=== PATIENT | female | born 1930 | race Caucasian/White ===

== ENCOUNTER 2016-12-18 05:47 | Day surgery (SDC) | payer MEDICARE, OTHER, MEDICAID ==
[~2016-12-18] VITALS: Ht 152.4 cm; Wt 66.1 kg
[~2016-12-18 05:47] MED LIST: ACET-2321 PO; ASPI-557 PO; FURO-33 PO; LOSA100T44 PO; METO100T5 PO; METO50TA5 PO; MIRT15TA6 PO; MV-M1TAB38 PO; OMEP20TA2 PO; POLY15DR57 BOTH EYES; POLY17PO6 PO; POTA10CA32 PO; SIMV20TA89 PO; SUCR1ORA3 PO; TRAM50TA53 PO; TRAZ-58 PO
--- OUTSIDE RECORDS SUMMARY | 2016-12-18 05:51 | XMS REPORT | Referral Summary ---
Author Author [facility], Family Medicine Organization [facility] Address Unknown Phone Unavailable Care Team Providers Care Care Manager Cna Name Role Phone Daniel Hough Primary Care Physician [phone] Encounter VC Date(s): 01/29/15 - 01/29/15 [facility], Family [address] [place] [address] Discharge Diagnosis: Chronic pain of right knee Discharge Disposition: 01-Home or Self Care Attending Physician: Saul Hough MD Admitting Physician: Saul Hough MD Vital Signs Most recent to 1 oldest [Reference Range]: Blood Pressure 130/76 mmHg [90-140/60-90 mmHg] (01/29/15 8:57 AM) Problem List Condition Effective Dates Status Health Status Informant Acute GI Active bleeding(Confirmed) Anxiety(Confirmed) Resolved CAD(Confirmed) Resolved CKD (chronic kidney Active disease), stage III(Confirmed)1 GERD Active (gastroesophageal reflux disease)(Confirmed) Herpes 2011 Resolved zoster(Confirmed) Hypercholesterolemia Active (Confirmed) Hyperlipidemia(Confi Resolved rmed) Hypertension(Confirm Resolved ed) Hypothyroidism(Confi Resolved rmed) Kidney Resolved stones(Confirmed) Knee pain(Confirmed) 2007 Resolved Malignant Resolved lymphoma(Confirmed)2 Measles, mumps as Resolved child(Confirmed) DJD (degenerative Active joint disease)(Confirmed) Peptic ulcer Active disease(Confirmed) Chronic Active insomnia(Confirmed) Shingles January 2012 Resolved 2011(Confirmed) 1managed by Dr. Reddy 2POWERPORT catheter Allergies, Adverse Reactions, Alerts Substance Reaction Severity Status acetaminophen-HYDROcodone Nausea/Vomiting Mild Active codeine Nausea/Vomiting Mild Active HYDROcodone Active meperidine Adverse Reaction Mild Active sulfamethoxazole Adverse Reaction Mild Active sulfanilamide topical Active Medications acetaminophen 500 mg, Oral, BID, 0 Refill(s) Start Date: 02/15/14 Status: Ordered aspirin 81 mg, Oral, Daily, 0 Refill(s) Start Date: 12/25/14 Status: Ordered Carafate 1 g oral tablet See Instructions, TAKE ONE TABLET BY MOUTH FOUR TIMES A DAY, # 120 tabs, eRx: [facility] #[id number], TAKE ONE TABLET BY MOUTH FOUR TIMES A DAY Start Date: 05/29/15 Status: Ordered furosemide 80 mg oral tablet 0.5 tabs, Oral, BID, 0 Refill(s) Start Date: 02/15/14 Status: Ordered losartan 100 mg oral tablet See Instructions, TAKE ONE TABLET BY MOUTH DAILY, # 30 tabs, 2 Refill(s), eRx: [facility] #[id number], TAKE ONE TABLET BY MOUTH DAILY Start Date: 01/09/15 Status: Ordered Metoprolol Tartrate 50 mg oral tablet See Instructions, TAKE TWO TABLETS BY MOUTH EVERY MORNING, # 180 tabs, 2 Refill( s), eRx: [facility] #[id number], TAKE TWO TABLETS BY MOUTH EVERY MORNING Start Date: 10/31/14 Status: Ordered mirtazapine 15 mg oral tablet See Instructions, TAKE ONE TABLET BY MOUTH AT BEDTIME, # 30 tabs, 1 Refill(s), eRx: [facility] #[id number], TAKE ONE TABLET BY MOUTH AT BEDTIME Start Date: 06/19/15 Status: Ordered Ocuvite tabs, Oral, Daily, 0 Refill(s) Start Date: 12/25/14 Status: Ordered omeprazole 20 mg, Oral, Daily, 0 Refill(s) Start Date: 03/11/15 Status: Ordered potassium chloride 10 mEq oral capsule, extended release See Instructions, TAKE ONE CAPSULE BY MOUTH THREE TIMES A DAY, # 120 unknown unit, 2 Refill(s), eRx: [facility] #[id number], TAKE ONE CAPSULE BY MOUTH THREE TIMES A DAY Start Date: 04/24/15 Status: Ordered traZODone 100 mg oral tablet See Instructions, TAKE ONE TABLET BY MOUTH AT BEDTIME, # 30 tabs, 2 Refill(s), eRx: [facility] #[id number], TAKE ONE TABLET BY MOUTH AT BEDTIME Start Date: 04/17/15 Status: Ordered Zocor 20 mg oral tablet See Instructions, TAKE ONE TABLET BY MOUTH AT BEDTIME, # 30 tabs, 2 Refill(s), eRx: [facility] #[id number], TAKE ONE TABLET BY MOUTH AT BEDTIME Start Date: 04/10/15 Status: Ordered Results No data available for this section Immunizations Vaccine Date Refusal Reason influenza virus vaccine, live 05/17/13 influenza virus vaccine, live 06/07/12 pneumococcal 23-polyvalent vaccine 08/03/05 Procedures Procedure Date Related Diagnosis Body Site POWERPORT cath 2012 S/P cardiac catheterization with ballooning 05/02/12 Colonoscopy1 2010 S/P arthroscopy of right knee with partial 06/20/08 lateral and medial meniscectomy2 S/p CABG (coronary artery bypass graft) 2000 H/O toe surgery 1984 herniated disc repair 1974 Hysterectomy 1973 Appendectomy 1947 Tonsillectomy 1Normal -repeat in 10yrs 2chondroplasty, excision plica Social History Social History Type Response Smoking Status Never smoker; Type: Cigarettes Assessment and Plan Extracted from: Title: Ambulatory Patient Education Author: Saul Hough MD Date: Family Medicine Arthralgia Your caregiver has diagnosed you as suffering from an arthralgia. Arthralgia means there is pain in a joint. This can come from many reasons including: Bruising the joint which causes soreness (inflammation ) in the joint. Wear and tear on the joints which occur as we grow older (osteoarthritis ) . Overusing the joint. Various forms of arthritis. Infections of the joint. Regardless of the cause of pain in your joint, most of these different pains respond to anti-inflammatory drugs and rest. The exception to this is when a joint is infected, and these cases are treated with antibiotics, if it is a bacterial infection. HOME CARE INSTRUCTIONS Rest the injured area for as long as directed by your caregiver. Then slowly start using the joint as directed by your caregiver and as the pain allows. Crutches as directed may be useful if the ankles, knees or hips are involved. If the knee was splinted or casted, continue use and care as directed. If an stretchy or elastic wrapping bandage has been applied today, it should be removed and re-applied every 3 to 4 hours. It should not be applied tightly, but firmly enough to keep swelling down. Watch toes and feet for swelling, bluish discoloration, coldness, numbness or excessive pain. If any of these problems (symptoms ) occur, remove the remberto bandage and re-apply more loosely. If these symptoms persist, contact your caregiver or return to this location. For the first 24 hours, keep the injured extremity elevated on pillows while lying down. Apply ice for 15-20 minutes to the sore joint every couple hours while awake for the first half day. Then 03-04 times per day for the first 48 hours. Put the ice in a plastic bag and place a towel between the bag of ice and your skin. Wear any splinting, casting, elastic bandage applications, or slings as instructed. Only take [id number]-mdnwftt or prescription medicines for pain, discomfort, or fever as directed by your caregiver. Do not use aspirin immediately after the injury unless instructed by your physician. Aspirin can cause increased bleeding and bruising of the tissues. If you were given crutches, continue to use them as instructed and do not resume weight bearing on the sore joint until instructed. Persistent pain and inability to use the sore joint as directed for more than 2 to 3 days are warning signs indicating that you should see a caregiver for a follow-up visit as soon as possible. Initially, a hairline fracture (break in bone) may not be evident on X-rays. Persistent pain and swelling indicate that further evaluation, non-weight bearing or use of the joint (use of crutches or slings as instructed), or further X-rays are indicated. X-rays may sometimes not show a small fracture until a week or 10 days later. Make a follow-up appointment with your own caregiver or one to whom we have referred you. A radiologist (specialist in reading X-rays) may read your X-rays. Make sure you know how you are to obtain your X-ray results. Do not assume everything is normal if you do not hear from us. SEEK MEDICAL CARE IF: Bruising, swelling, or pain increases. SEEK IMMEDIATE MEDICAL CARE IF: Your fingers or toes are numb or blue. The pain is not responding to medications and continues to stay the same or get worse. The pain in your joint becomes severe. You develop a fever over 102 F (38.9 C). It becomes impossible to move or use the joint. MAKE SURE YOU: Understand these instructions. Will watch your condition. Will get help right away if you are not doing well or get worse. Document Released: 08/02/2006 Document Revised: 10/24/2012 Document Reviewed: ExitCare Patient Information 2014 [employer] [facility]. No follow up information was provided. Extracted from: Title: Office Visit Note Author: Saul Hough MD Date: 01/29/15 Assessment/Plan Anxiety Ordered: Office Visit Level 4 Est 71952 CAD Ordered: Office Visit Level 4 Est 47559 Chronic insomnia Will increase the trazodone to 75mg at bedtime and continue with the rest of the medications. Ordered: Office Visit Level 4 Est 58258 Chronic pain of right knee X-ray of the knee. Ordered: Office Visit Level 4 Est 97738 XR Knee 3 Views Right CKD (chronic kidney disease), stage III Ordered: Office Visit Level 4 Est 87385
--- OUTSIDE RECORDS SUMMARY | 2016-12-18 05:51 | XMS REPORT | Referral Summary ---
Author Author [facility], Family Medicine Organization [facility] Address Unknown Phone Unavailable Care Team Providers Care Clinical Staff Rn Name Role Phone Daniel Hough Primary Care Physician [phone] Encounter VC Date(s): 01/29/15 - 01/29/15 [facility], Family [address] [place] [address] Discharge Diagnosis: Chronic pain of right knee [...] TIMES A DAY, # 120 tabs, eRx: [facility] #[id number], TAKE ONE TABLET BY MOUTH FOUR TIMES A DAY Start Date: 05/29/15 Status: Ordered furosemide 80 mg oral tablet 0.5 tabs, Oral, BID, 0 Refill(s) Start Date: 02/15/14 Status: Ordered losartan 100 mg oral tablet See Instructions, TAKE ONE TABLET BY MOUTH DAILY, # 30 tabs, 2 Refill(s), eRx: [facility] #[id number], TAKE ONE TABLET BY MOUTH DAILY Start Date: 01/09/15 Status: Ordered Metoprolol Tartrate 50 mg oral tablet See Instructions, TAKE TWO TABLETS BY MOUTH EVERY MORNING, # 180 tabs, 2 Refill( s), eRx: [facility] #[id number], TAKE TWO TABLETS BY MOUTH EVERY MORNING Start Date: 10/31/14 Status: Ordered mirtazapine 15 mg oral tablet See Instructions, TAKE ONE TABLET BY MOUTH AT BEDTIME, # 30 tabs, 1 Refill(s), eRx: [facility] #[id number], TAKE ONE TABLET BY MOUTH AT BEDTIME Start Date: 06/19/15 Status: Ordered Ocuvite tabs, Oral, Daily, 0 Refill(s) Start Date: 12/25/14 Status: Ordered omeprazole 20 mg, Oral, Daily, 0 Refill(s) Start Date: 03/11/15 Status: Ordered potassium chloride 10 mEq oral capsule, extended release See Instructions, TAKE ONE CAPSULE BY MOUTH THREE TIMES A DAY, # 120 unknown unit, 2 Refill(s), eRx: [facility] #[id number], TAKE ONE CAPSULE BY MOUTH THREE TIMES A DAY Start Date: 04/24/15 Status: Ordered traZODone 100 mg oral tablet See Instructions, TAKE ONE TABLET BY MOUTH AT BEDTIME, # 30 tabs, 2 Refill(s), eRx: [facility] #[id number], TAKE ONE TABLET BY MOUTH AT BEDTIME Start Date: 04/17/15 Status: Ordered Zocor 20 mg oral tablet See Instructions, TAKE ONE TABLET BY MOUTH AT BEDTIME, # 30 tabs, 2 Refill(s), eRx: [facility] #[id number], TAKE ONE TABLET BY MOUTH AT BEDTIME [...] applications, or slings as instructed. Only take zvbi-tfh-jewnenm or prescription medicines for pain, discomfort, or [...] 10/24/2012 Document Reviewed: ExitCare Patient Information 2014 [employer] [facility]. No follow up information was provided. Extracted from: Title: Office Visit Note Author: Saul Hough MD Date: 01/29/15 Assessment/Plan Anxiety Ordered: Office Visit Level 4 Est 29950 CAD Ordered: Office Visit Level 4 Est 54121 Chronic insomnia Will increase the trazodone to 75mg at bedtime and continue with the rest of the medications. Ordered: Office Visit Level 4 Est 42553 Chronic pain of right knee X-ray of the knee. Ordered: Office Visit Level 4 Est 72233 XR Knee 3 Views Right CKD (chronic kidney disease), stage III Ordered: Office Visit Level 4 Est 66004
--- OUTSIDE RECORDS SUMMARY | 2016-12-18 05:51 | XMS REPORT | Referral Summary ---
Author Author [facility], Family Medicine Organization [facility] Address Unknown Phone Unavailable Care Team Providers Care Debone Processing Supervisor Name Role Phone Daniel Hough Primary Care Physician [phone] Encounter VC Date(s): 07/08/15 - 07/08/15 [facility], Family [address] [place] [address] Discharge Disposition: 01-Home or Self Care Attending Physician: Saul Hough MD Admitting Physician: Saul Hough MD Vital Signs Most recent to 1 oldest [Reference Range]: Blood Pressure 124/66 mmHg [90-140/60-90 mmHg] (07/08/15 1:30 PM) Problem List Condition Effective Dates Status Health [...] TIMES A DAY, # 120 tabs, eRx: [facility] #[id number], TAKE ONE TABLET BY MOUTH FOUR TIMES A DAY Start Date: 06/26/15 Status: Ordered furosemide 80 mg oral tablet 0.5 tabs, Oral, BID, 0 Refill(s) Start Date: 02/15/14 Status: Ordered losartan 100 mg oral tablet See Instructions, TAKE ONE TABLET BY MOUTH DAILY, # 30 tabs, 2 Refill(s), eRx: [facility] #[id number], TAKE ONE TABLET BY MOUTH DAILY Start Date: 01/09/15 Status: Ordered Metoprolol Tartrate 50 mg oral tablet See Instructions, TAKE TWO TABLETS BY MOUTH EVERY MORNING, # 180 tabs, 2 Refill( s), eRx: [facility] #[id number], TAKE TWO TABLETS BY MOUTH EVERY MORNING Start Date: 10/31/14 Status: Ordered mirtazapine 15 mg oral tablet See Instructions, TAKE ONE TABLET BY MOUTH AT BEDTIME, # 30 tabs, 1 Refill(s), eRx: [facility] #[id number], TAKE ONE TABLET BY MOUTH AT BEDTIME Start Date: 06/19/15 Status: Ordered Ocuvite tabs, Oral, Daily, 0 Refill(s) Start Date: 12/25/14 Status: Ordered omeprazole 20 mg, Oral, Daily, 0 Refill(s) Start Date: 03/11/15 Status: Ordered potassium chloride 10 mEq oral capsule, extended release See Instructions, TAKE ONE CAPSULE BY MOUTH THREE TIMES A DAY, # 120 unknown unit, 2 Refill(s), eRx: [facility] #[id number], TAKE ONE CAPSULE BY MOUTH THREE TIMES A DAY Start Date: 04/24/15 Status: Ordered traZODone 100 mg oral tablet See Instructions, TAKE ONE TABLET BY MOUTH AT BEDTIME, # 30 tabs, 2 Refill(s), eRx: [facility] #[id number], TAKE ONE TABLET BY MOUTH AT BEDTIME Start Date: 04/17/15 Status: Ordered Zocor 20 mg oral tablet See Instructions, TAKE ONE TABLET BY MOUTH AT BEDTIME, # 30 tabs, 2 Refill(s), eRx: [facility] #[id number], TAKE ONE TABLET BY MOUTH AT BEDTIME [...] surgery 1984 herniated disc repair 1974 Hysterectomy 1974 Appendectomy 1948 Tonsillectomy 1Normal -repeat in 10yrs 2chondroplasty, excision plica Social History Social History Type Response Smoking Status Never smoker; Type: Cigarettes Assessment and Plan Extracted from: Title: Ambulatory Patient Education Author: Saul Hough MD Date: Family Medicine Joint Injection Care After Refer to this sheet in the next few days. These instructions provide you with information on caring for yourself after you have had a joint injection. Your caregiver also may give you more specific instructions. Your treatment has been planned according to current medical practices, but problems sometimes occur. Call your caregiver if you have any problems or questions after your procedure. After any type of joint injection, it is not uncommon to experience: Soreness, swelling, or bruising around the injection site. Mild numbness, tingling, or weakness around the injection site caused by the numbing medicine used before or with the injection. It also is possible to experience the following effects associated with the specific agent after injection: Iodine-based contrast agents: Allergic reaction (itching, hives, widespread redness, and swelling beyond the injection site). Corticosteroids (These effects are rare.): Allergic reaction. Increased blood sugar levels (If you have diabetes and you notice that your blood sugar levels have increased, notify your caregiver). Increased blood pressure levels. Mood swings. Hyaluronic acid in the use of viscosupplementation. Temporary heat or redness. Temporary rash and itching. Increased fluid accumulation in the injected joint. These effects all should resolve within a day after your procedure. HOME CARE INSTRUCTIONS Limit yourself to light activity the day of your procedure. Avoid lifting heavy objects, bending, stooping, or twisting. Take prescription or agpc-uzp-rvtefii pain medication as directed by your caregiver. You may apply ice to your injection site to reduce pain and swelling the day of your procedure. Ice may be applied 03-04 times: Put ice in a plastic bag. Place a towel between your skin and the bag. Leave the ice on for no longer than 15-20 minutes each time. SEEK IMMEDIATE MEDICAL CARE IF: Pain and swelling get worse rather than better or extend beyond the injection site. Numbness does not go away. Blood or fluid continues to leak from the injection site. You have chest pain. You have swelling of your face or tongue. You have trouble breathing or you become dizzy. You develop a fever, chills, or severe tenderness at the injection site that last longer than 1 day. MAKE SURE YOU: Understand these instructions. Watch your condition. Get help right away if you are not doing well or if you get worse. Document Released: 04/14/2012 Document Revised: 10/24/2012 Document Reviewed: [facility] Patient Information 2015 [employer]. This information is not intended to replace advice given to you by your health care provider. Make sure you discuss any questions you have with your health care provider. Heat Therapy Heat therapy can help ease sore, stiff, injured, and tight muscles and joints. Heat relaxes your muscles, which may help ease your pain. RISKS AND COMPLICATIONS If you have any of the following conditions, do not use heat therapy unless your health care provider has approved: Poor circulation. Healing wounds or scarred skin in the area being treated. Diabetes, heart disease, or high blood pressure. Not being able to feel (numbness) the area being treated. Unusual swelling of the area being treated. Active infections. Blood clots. Cancer. Inability to communicate pain. This may include young children and people who have problems with their brain function (dementia). . Heat therapy should only be used on old, pre-existing, or long-lasting (chronic ) injuries. Do not use heat therapy on new injuries unless directed by your health care provider. HOW TO USE HEAT THERAPY There are several different kinds of heat therapy, including: Moist heat pack. Warm water bath. Hot water bottle. Electric heating pad. Heated gel pack. Heated wrap. Electric heating pad. Use the heat therapy method suggested by your health care provider. Follow your health care provider's instructions on when and how to use heat therapy. GENERAL HEAT THERAPY RECOMMENDATIONS Do not sleep while using heat therapy. Only use heat therapy while you are awake. Your skin may turn pink while using heat therapy. Do not use heat therapy if your skin turns red. Do not use heat therapy if you have new pain. High heat or long exposure to heat can cause najera. Be careful when using heat therapy to avoid burning your skin. Do not use heat therapy on areas of your skin that are already irritated, such as with a rash or sunburn. SEEK MEDICAL CARE IF: You have blisters, redness, swelling, or numbness. You have new pain. Your pain is worse. MAKE SURE YOU: Understand these instructions. Will watch your condition. Will get help right away if you are not doing well or get worse. Document Released: 10/24/2012 Document Revised: 12/17/2014 Document Reviewed: [facility] Patient Information 2015 [facility]. This information is not intended to replace advice given to you by your health care provider. Make sure you discuss any questions you have with your health care provider. No follow up information was provided. Extracted from: Title: Office Visit Note Author: Saul Hough MD Date: 07/08/15 Assessment/Plan DJD (degenerative joint disease) I find the patient stable for surgery for knee replacement. Ordered: Office Visit Level 4 Est 97232 Hypercholesterolemia Ordered: Office Visit Level 4 Est 34682 Hypertension Ordered: Office Visit Level 4 Est 76152 Hypothyroidism Ordered: Office Visit Level 4 Est 28907 Malignant lymphoma Peptic ulcer disease
--- OUTSIDE RECORDS SUMMARY | 2016-12-18 05:51 | XMS REPORT | Referral Summary ---
Author Author [facility], Family Medicine Organization [facility] Address Unknown Phone Unavailable Care Team Providers Care Blending Coordinator Name Role Phone Daniel Hough Primary Care Physician [phone] Encounter VC Date(s): 01/29/15 - 01/29/15 [facility], Family [address] [place] [address] Discharge Diagnosis: Chronic pain of right [...] TIMES A DAY, # 120 tabs, eRx: [facility] #[id number], TAKE ONE TABLET BY MOUTH FOUR TIMES A DAY Start Date: 05/29/15 Status: Ordered furosemide 80 mg oral tablet 0.5 tabs, Oral, BID, 0 Refill(s) Start Date: 02/15/14 Status: Ordered losartan 100 mg oral tablet See Instructions, TAKE ONE TABLET BY MOUTH DAILY, # 30 tabs, 2 Refill(s), eRx: [facility] #[id number], TAKE ONE TABLET BY MOUTH DAILY Start Date: 01/09/15 Status: Ordered Metoprolol Tartrate 50 mg oral tablet See Instructions, TAKE TWO TABLETS BY MOUTH EVERY MORNING, # 180 tabs, 2 Refill( s), eRx: [facility] #[id number], TAKE TWO TABLETS BY MOUTH EVERY MORNING Start Date: 10/31/14 Status: Ordered mirtazapine 15 mg oral tablet See Instructions, TAKE ONE TABLET BY MOUTH AT BEDTIME, # 30 tabs, 1 Refill(s), eRx: [facility] #[id number], TAKE ONE TABLET BY MOUTH AT BEDTIME Start Date: 06/19/15 Status: Ordered Ocuvite tabs, Oral, Daily, 0 Refill(s) Start Date: 12/25/14 Status: Ordered omeprazole 20 mg, Oral, Daily, 0 Refill(s) Start Date: 03/11/15 Status: Ordered potassium chloride 10 mEq oral capsule, extended release See Instructions, TAKE ONE CAPSULE BY MOUTH THREE TIMES A DAY, # 120 unknown unit, 2 Refill(s), eRx: [facility] #[id number], TAKE ONE CAPSULE BY MOUTH THREE TIMES A DAY Start Date: 04/24/15 Status: Ordered traZODone 100 mg oral tablet See Instructions, TAKE ONE TABLET BY MOUTH AT BEDTIME, # 30 tabs, 2 Refill(s), eRx: [facility] #[id number], TAKE ONE TABLET BY MOUTH AT BEDTIME Start Date: 04/17/15 Status: Ordered Zocor 20 mg oral tablet See Instructions, TAKE ONE TABLET BY MOUTH AT BEDTIME, # 30 tabs, 2 Refill(s), eRx: [facility] #[id number], TAKE ONE TABLET BY MOUTH AT BEDTIME [...] Extracted from: Title: Ambulatory Patient Education Author: Sual Hough MD Date: Family Medicine Arthralgia Your [...] applications, or slings as instructed. Only take [id number] or prescription medicines for pain, discomfort, or [...] 10/24/2012 Document Reviewed: [employer] Patient Information 2014 [employer] [facility]. No follow up information was provided. Extracted from: Title: Office Visit Note Author: Saul Hough MD Date: 01/29/15 Assessment/Plan Anxiety Ordered: Office Visit Level 4 Est 63832 CAD Ordered: Office Visit Level 4 Est 61251 Chronic insomnia Will increase the trazodone to 75mg at bedtime and continue with the rest of the medications. Ordered: Office Visit Level 4 Est 55960 Chronic pain of right knee X-ray of the knee. Ordered: Office Visit Level 4 Est 06233 XR Knee 3 Views Right CKD (chronic kidney disease), stage III Ordered: Office Visit Level 4 Est 02763
--- OUTSIDE RECORDS SUMMARY | 2016-12-18 05:51 | XMS REPORT | Referral Summary ---
Author Organization Unknown Address Unknown Phone Unavailable Care Team Providers Care Cable Engineer Outside Plant Name Role Phone Daniel Hough Primary Care Physician [phone] Encounter VC Date(s): 08/29/14 - 08/29/14 [facility], [place], [address] [place] [address] Discharge Diagnosis: History of hematemesis Discharge Diagnosis: History of melena Discharge Diagnosis: Melena Discharge Disposition: Home or Self Care Attending Physician: John Roberts MD Admitting Physician: John Roberts MD Vital Signs Most recent to 1 oldest [Reference Range]: Temperature Tympanic 36 degC [36.6-38.1 degC] *LOW* (08/29/14 9:32 AM) Blood Pressure 138/74 mmHg [90-140/60-90 mmHg] (08/29/14 9:32 AM) Problem List Condition Effective Dates Status Health Status Informant Acute GI Active bleeding(Confirmed) Anxiety(Confirmed) Resolved CAD(Confirmed) Resolved CKD (chronic kidney Active disease), stage III(Confirmed)1 Herpes 2011 Resolved zoster(Confirmed) Hypercholesterolemia Active (Confirmed) Hyperlipidemia(Confi Resolved rmed) Hypertension(Confirm Resolved ed) Hypothyroidism(Confi Resolved rmed) Kidney Resolved stones(Confirmed) Knee pain(Confirmed) 2007 Resolved Malignant Resolved lymphoma(Confirmed)2 Measles, mumps as Resolved child(Confirmed) Shingles January 2012 Resolved 2012(Confirmed) 1managed by Dr. Reddy 2[facility] catheter Allergies, Adverse Reactions, Alerts Substance Reaction Severity Status acetaminophen Active acetaminophen-HYDROcodone Nausea/Vomiting Mild Active codeine Nausea/Vomiting Mild Active HYDROcodone Active meperidine Adverse Reaction Mild Active sulfamethoxazole Adverse Reaction Mild Active sulfanilamide topical Active Medications acetaminophen 500 mg, Oral, Daily, 0 Refill(s) Start Date: 02/15/14 Status: Ordered allopurinol 300 mg oral tablet 1 tabs, Oral, Daily, # 30 tabs, 0 Refill(s) Start Date: 02/15/14 Status: Ordered furosemide 80 mg oral tablet 0.5 tabs, Oral, BID, 0 Refill(s) Start Date: 02/15/14 Status: Ordered lansoprazole 15 mg oral delayed release capsule 1 caps, Oral, Daily, # 30 caps, 0 Refill(s), Pharmacy: [facility] #[id number] , 1 caps Oral Daily Start Date: 05/21/14 Status: Ordered lansoprazole 15 mg oral tablet, disintegrating 1 tabs, Oral, Daily, # 30 tabs, 0 Refill(s) Start Date: 02/15/14 Status: Ordered losartan 100 mg oral tablet See Instructions, TAKE ONE TABLET BY MOUTH EVERY DAY, # 30 tabs, eRx: [facility] #[id number], TAKE ONE TABLET BY MOUTH EVERY DAY Special Instructions: TAKE ONE TABLET BY MOUTH EVERY DAY Start Date: 08/29/14 Status: Ordered Metoprolol Tartrate 50 mg oral tablet See Instructions, TAKE TWO TABLETS BY MOUTH EVERY MORNING, # 180 tabs, eRx: [facility] #[id number], TAKE TWO TABLETS BY MOUTH EVERY MORNING Special Instructions: TAKE TWO TABLETS BY MOUTH EVERY MORNING Start Date: 08/01/14 Status: Ordered mirtazapine 15 mg oral tablet See Instructions, TAKE ONE TABLET BY MOUTH AT BEDTIME, # 30 tabs, 1 Refill(s), eRx: [facility] #[id number], TAKE ONE TABLET BY MOUTH AT BEDTIME Special Instructions: TAKE ONE TABLET BY MOUTH AT BEDTIME Start Date: 08/08/14 Status: Ordered Norvasc 5 mg oral tablet 0.5 tabs, Oral, Daily, # 30 tabs, 0 Refill(s) Start Date: 02/15/14 Status: Ordered oxybutynin 5 mg oral tablet 1 tabs, Oral, TID, # 30 tabs, 0 Refill(s) Start Date: 02/15/14 Status: Ordered potassium chloride 10 mEq oral capsule, extended release See Instructions, TAKE ONE CAPSULE BY MOUTH THREE TIMES A DAY, # 120 unknown unit, 2 Refill(s), eRx: [facility] #[id number], TAKE ONE CAPSULE BY MOUTH THREE TIMES A DAY Special Instructions: TAKE ONE CAPSULE BY MOUTH THREE TIMES A DAY Start Date: 05/16/14 Status: Ordered traZODone 50 mg oral tablet See Instructions, TAKE ONE TABLET BY MOUTH EVERY NIGHT AT BEDTIME AFTER MEALS, # 30 tabs, eRx: [facility] #[id number], TAKE ONE TABLET BY MOUTH EVERY NIGHT AT BEDTIME AFTER MEALS Special Instructions: TAKE ONE TABLET BY MOUTH EVERY NIGHT AT BEDTIME AFTER MEALS Start Date: 08/01/14 Status: Ordered Zocor 20 mg oral tablet See Instructions, TAKE ONE TABLET BY MOUTH AT BEDTIME, # 30 tabs, 1 Refill(s), eRx: [facility] #[id number], TAKE ONE TABLET BY MOUTH AT BEDTIME Special Instructions: TAKE ONE TABLET BY MOUTH AT BEDTIME Start Date: 08/15/14 Status: Ordered Zocor 20 mg oral tablet See Instructions, TAKE ONE TABLET BY MOUTH AT BEDTIME, # 30 tabs, 2 Refill(s), eRx: [facility] #[id number], TAKE ONE TABLET BY MOUTH AT BEDTIME Special Instructions: TAKE ONE TABLET BY MOUTH AT BEDTIME Start Date: 05/16/14 Status: Ordered Zocor 20 mg oral tablet 1 tabs, Oral, Bedtime (once a day), # 30 tabs, 0 Refill(s) Start Date: 02/15/14 Status: Ordered Results No data available for [...] artery bypass graft) 2000 H/O toe surgery 1985 herniated disc repair 1974 Hysterectomy 1974 Appendectomy 1948 Tonsillectomy 1Normal -repeat in 10yrs 2chondroplasty, excision plica Social History Social History Type Response Smoking Status Never smoker; Type: Cigarettes Assessment and Plan Extracted from: Title: Ambulatory Patient Education Author: John Roberts MD Date: Family Medicine Fecal Occult Blood Test This is a test done on a stool specimen to screen for gastrointestinal bleeding , which may be an indicator of colon cancer Is is usually done as part of a routine examination, annually, after age 50 or as directed by your caregiver. The fecal occult blood test (FOBT) checks for blood in your stool. Normally, there will not be enough blood lost through the gastrointestinal tract to turn an FOBT positive or for you to notice it visually in the form of bloody or dark , tarry stools. Any significant amount of blood being passed should be investigated. A positive FOBT will tell your caregiver that you have bleeding occurring somewhere in your gastrointestinal tract. This blood loss could be due to ulcers , diverticulosis, bleeding polyps, inflammatory bowel disease, hemorrhoids, from swallowed blood due to bleeding gums or nosebleeds, or it could be due to benign or cancerous tumors. Anything that protrudes into the lumen (the empty space in the intestine), like a polyp or tumor, and is rubbed against by the fecal waste as it passes through has the potential to eventually bleed intermittently. Often this small amount of blood is the first, and sometimes the only, symptom of early colon cancer, making the FOBT a valuable screening tool. PREPARATION FOR TEST You should not eat red meat within three days before testing. Other substances that could cause a false positive test result include fish, turnips, horseradish , and drugs such as colchicines and oxidizing drugs (for example, iodine and boric acid). Be sure to carefully follow your caregiver's instructions. With FOBT, your caregiver or laboratory will give you one or more test "cards." You collect a separate sample from three different stools, usually on consecutive days. Each stool sample should be collected into a clean container and should not be contaminated with urine or water. The slide is labeled with your name and the date; then, with an applicator stick, you apply a thin smear of stool onto each filter paper square/window contained on the card. Allow the filter paper to dry. Once it is dry, it is stable. Usually you will collect all of the consecutive samples, and then return all of them to your caregiver or laboratory at the same time, sometimes by mailing them. There are also over the counter tests which are dropped in your toilet. NORMAL FINDINGS No occult blood within the stool. The FOBT test is normally negative. A positive indicates either blood in the stool or an interfering substance. Multiple samples are done to: 1) catch intermittent bleeding; and 2) help rule out false positives. Ranges for normal findings may vary among different laboratories and hospitals. You should always check with your doctor after having lab work or other tests done to discuss the meaning of your test results and whether your values are considered within normal limits. MEANING OF TEST Your caregiver will go over the test results with you and discuss the importance and meaning of your results, as well as treatment options and the need for additional tests if necessary. OBTAINING THE TEST RESULTS It is your responsibility to obtain your test results. Ask the lab or department performing the test when and how you will get your results. Document Released: 08/27/2005 Document Revised: 10/24/2012 Document Reviewed: [facility] [place] Patient Information 2014 [employer]. No follow up information was provided. Extracted from: Title: Office Visit Note Author: John Roberts MD Date: 08/29/14 Assessment/Plan History of hematemesis, History of melena Ordered: Office Visit Level 4 Est 94003 Melena Ordered: Office Visit Level 4 Est 50375 Plan: No further evaluation at this time. Follow from clinical standpoint. Proceed with endoscopy if symptoms should recur. I did review the patient's chart including a CT scan performed on July 18, 2014 through the emergency room. Incidental gallstones were noted. No acute intra-abdominal pathology noted. Reviewed note from primary care physician from July 22, 2014. Reviewed lab for from ER visit. Patient was not anemic at that time with a hemoglobin of 12.5. I informed the patient and her daughter that one perhaps could make an argument for proceeding with colonoscopy and EGD given her prior history for "dark stools and coffee-ground emesis". I informed the patient that it was my clinical intuition that she likely had a viral gastroenteritis resulting in this component of hematemesis and melena. This process has now completely resolve so one could also make an argument for not proceeding with further evaluation/endoscopy. Pros and cons of these options were discussed. It was elected at this time not to proceed with further evaluation. Patient to return to office if should have recurrence of symptoms in the future.
--- OUTSIDE RECORDS SUMMARY | 2016-12-18 05:52 | XMS REPORT | Referral Summary ---
Author Author [facility], Family Medicine Organization [facility] Address Unknown Phone Unavailable Care Team Providers Care Highway Construction Inspector Name Role Phone Daniel Hough Primary Care Physician [phone] Encounter VC Date(s): 01/29/15 - 01/29/15 [facility], Family [address] [place] [address] Discharge Diagnosis: Chronic pain of right knee [...] 0 Refill(s) Start Date: 02/15/14 Status: Ordered Aspir 81 mg, Oral, Daily, 0 Refill(s) Start Date: 07/16/15 Status: Ordered aspirin 81 mg, Oral, Daily, 0 Refill(s) Start Date: 12/25/14 Status: Ordered Carafate 1 g oral tablet See Instructions, TAKE ONE TABLET BY MOUTH FOUR TIMES A DAY, # 120 tabs, 2 Refill(s), eRx: [facility] #[id number], TAKE ONE TABLET BY MOUTH FOUR TIMES A DAY Start Date: 07/24/15 Status: Ordered furosemide 40 mg/5 mL oral solution mg mL, Oral, Daily, 0 Refill(s) Start Date: 07/16/15 Status: Ordered losartan 100 mg oral tablet 100 mg 1 tabs, Oral, Daily, # 90 tabs, 1 Refill(s), Pharmacy: [facility] # [id number], 1 tabs Oral Daily,x90 days Start Date: 07/15/15 Stop Date: 10/13/15 Status: Ordered losartan 100 mg oral tablet 100 mg 1 tabs, Oral, Daily, # 30 tabs, 0 Refill(s) Start Date: 07/16/15 Status: Ordered Metoprolol Tartrate 50 mg oral tablet See Instructions, TAKE TWO TABLETS BY MOUTH EVERY MORNING, # 180 tabs, 1 Refill( s), eRx: [facility] #[id number], TAKE TWO TABLETS BY MOUTH EVERY MORNING Start Date: 07/31/15 Status: Ordered mirtazapine 15 mg oral tablet See Instructions, TAKE ONE TABLET BY MOUTH AT BEDTIME, # 30 tabs, 1 Refill(s), eRx: [facility] #[id number], TAKE ONE TABLET BY MOUTH AT BEDTIME Start Date: 06/19/15 Status: Ordered mirtazapine 15 mg oral tablet 15 mg 1 tabs, Oral, Bedtime (once a day), # 30 tabs, 0 Refill(s) Start Date: 07/16/15 Status: Ordered Ocuvite tabs, Oral, Daily, 0 Refill(s) Start Date: 07/16/15 Status: Ordered Ocuvite tabs, Oral, Daily, 0 Refill(s) Start Date: 12/25/14 Status: Ordered omeprazole 20 mg, Oral, Daily, 0 Refill(s) Start Date: 03/11/15 Status: Ordered potassium chloride 10 mEq oral capsule, extended release See Instructions, TAKE ONE CAPSULE BY MOUTH THREE TIMES A DAY, # 120 unknown unit, 2 Refill(s), eRx: [facility] #[id number], TAKE ONE CAPSULE BY MOUTH THREE TIMES A DAY Start Date: 04/24/15 Status: Ordered PriLOSEC OTC mg, Oral, Daily, 0 Refill(s) Start Date: 07/16/15 Status: Ordered simvastatin 20 mg oral tablet 20 mg 1 tabs, Oral, Bedtime (once a day), # 30 tabs, 0 Refill(s) Start Date: 07/16/15 Status: Ordered traZODone 100 mg oral tablet See Instructions, TAKE ONE TABLET BY MOUTH AT BEDTIME, # 30 tabs, 1 Refill(s), eRx: [facility] #[id number], TAKE ONE TABLET BY MOUTH AT BEDTIME Start Date: 07/15/15 Status: Ordered Zocor 20 mg oral tablet See Instructions, TAKE ONE TABLET BY MOUTH AT BEDTIME, # 30 tabs, 1 Refill(s), eRx: [facility] #[id number], TAKE ONE TABLET BY MOUTH AT BEDTIME Start Date: 07/10/15 Status: Ordered Results No data available for [...] surgery 1985 herniated disc repair 1974 Hysterectomy 1973 Appendectomy [...] applications, or slings as instructed. Only take myyt-[id number] or prescription medicines for pain, discomfort, or [...] Released: 08/02/2006 Document Revised: 10/24/2012 Document Reviewed: [facility] Patient Information 2014 [employer]. No follow up information was provided. Extracted from: Title: Office Visit Note Author: aSul Hough MD Date: 01/29/15 Assessment/Plan Anxiety Ordered: Office Visit Level 4 Est 70120 CAD Ordered: Office Visit Level 4 Est 41560 Chronic insomnia Will increase the trazodone to 75mg at bedtime and continue with the rest of the medications. Ordered: Office Visit Level 4 Est 60984 Chronic pain of right knee X-ray of the knee. Ordered: Office Visit Level 4 Est 64086 XR Knee 3 Views Right CKD (chronic kidney disease), stage III Ordered: Office Visit Level 4 Est 51580
--- OUTSIDE RECORDS SUMMARY | 2016-12-18 05:52 | XMS REPORT ---
Author Author [place], [facility] - Organization Unknown Address Unknown Phone Unavailable Allergies, Adverse Reactions, Alerts * iron causes Mild Nausea/Vomiting. * Lortab causes Mild Adverse Reaction and Mild Nausea/Vomiting. * codeine causes Mild Nausea/Vomiting. * Sulfa (Sulfonamide Antibiotics) causes Mild Adverse Reaction. * Demerol causes Mild Adverse Reaction. * No Latex Allergy. * No IV Contrast Allergy. Problems * Acute Pain* Status:Active. * History of Fall* Status:Active. * Knowledge Low Level* Status:Active. * Non-Hodgkin's Lymphoma* Status:Active. Procedures No relevant procedures performed. Medication It is the responsibility of the patient or patient sales training representative to confirm the list of medications with either the patient's personal care provider or the patient's follow-up care provider to ensure the patient has an appropriate list of medications to take at home. Discharge medications* allopurinol 300 mg Tablet, Ordered By: Ced Henriqueztar Directions: 1 tablet oral daily * amLODIPine (NorvASC) 5 mg Tablet, Ordered By: Ced Henriqueztar Directions: 1 tablet oral daily * furosemide 80 mg Tablet, Ordered By: Ced Henriqueztar Directions: 0.5 tablet oral twice a day * losartan 100 mg Tablet, Ordered By: Ced Henriqueztar Directions: 1 tablet oral daily * metoprolol tartrate 50 mg Tablet, Ordered By: Ced Henriqueztar Directions: 2 tablet oral daily * potassium chloride 10 mEq Tablet Extended Release, Ordered By: Ced Henriqueztar Directions: 1 tablet oral three times a day * simvastatin 20 mg Tablet, Ordered By: Ced Henriqueztar Directions: 1 tablet oral daily at bedtime * traZODone 100 mg Tablet, Ordered By: Ced Henriqueztar Directions: 0.5 to 1 tablet oral daily at bedtime Stopped medications* acetaminophen 500 mg Tablet Directions: 1-2 tablets oral every six hours PRN pain * aspirin 81 mg tablet,delayed release (DR/EC) Directions: 1 tablet oral daily * Calcium Citrate 415mg+D3 250units; 1 tablwt by mouth daily. Last dose taken at home: 05/31/13 AM * Biotin 1000mcg 1 tablet by mouth daily. Last dose taken at home: 05/31/13 AM * Calms Forte 1 tablet by mouth in the morning, and 2 tablets daily at bedtime. Last dose taken at home: 05/31/13 AM * I-cool; 1 tablet by mouth daily. Last dose taken at home: 05/31/13 AM * lansoprazole 15 mg capsule,delayed release(DR/EC) Directions: 1 capsule oral daily * levothyroxine 75 mcg Tablet Directions: 1 tablet oral daily Results LAB--CHEMISTRY from 05/31/2013 9:23 AMAnion Gap 8 (3-20 ) Albumin 3.5 g/dL (3.5-4.8 g/dL) Alkaline Phosphatase 66 U/L (26-104 U/L) ALT (SGPT) 12 U/L L (14-54 U/L) AST (SGOT) 27 U/L (15-41 U/L) Bilirubin Total 0.5 mg/dL (0.2-1.2 mg/dL) BUN 15 mg/dL (4-20 mg/dL) Calcium 9.1 mg/dL (8.6-10.0 mg/dL) Chloride 104 mEq/L (99-109 mEq/L) CO2 27 mEq/L (22-32 mEq/L) Creatinine 1.26 mg/dL H (0.44-1.03 mg/dL) eGFR 41 A (>60- ) Globulin 2.6 g/dL (1.9-4.3 g/dL) Glucose 99 mg/dL (70-100 mg/dL) Potassium 4.3 mEq/L (3.6-5.1 mEq/L) LDH 477 U/L H (98-192 U/L) Sodium 139 mEq/L (136-144 mEq/L) Protein 6.1 g/dL (6.1-7.9 g/dL) Uric Acid 4.0 mg/dL (2.6-8.0 mg/dL) LAB--CHEMISTRY from 05/31/2013 12:38 [id number], Serum 5.91 mcg/mL H LAB--CHEMISTRY from 06/01/2013 4:52 AMAnion Gap 4 (3-20 ) Albumin 2.9 g/dL L (3.5-4.8 g/dL) Alkaline Phosphatase 60 U/L (26-104 U/L) ALT (SGPT) 11 U/L L (14-54 U/L) AST (SGOT) 25 U/L (15-41 U/L) Bilirubin Total 0.4 mg/dL (0.2-1.2 mg/dL) BUN 13 mg/dL (4-20 mg/dL) Calcium 8.9 mg/dL (8.6-10.0 mg/dL) Chloride 109 mEq/L (99-109 mEq/L) CO2 28 mEq/L (22-32 mEq/L) Creatinine 1.07 mg/dL H (0.44-1.03 mg/dL) eGFR 49 A (>60- ) Globulin 2.2 g/dL (1.9-4.3 g/dL) Glucose 109 mg/dL H (70-100 mg/dL) Potassium 3.8 mEq/L (3.6-5.1 mEq/L) Sodium 141 mEq/L (136-144 mEq/L) Protein 5.1 g/dL L (6.1-7.9 g/dL) LAB--CHEMISTRY from 06/02/2013 5:55 AMAnion Gap 8 (3-20 ) Albumin 3.0 g/dL L (3.5-4.8 g/dL) Alkaline Phosphatase 64 U/L (26-104 U/L) ALT (SGPT) 13 U/L L (14-54 U/L) AST (SGOT) 31 U/L (15-41 U/L) Bilirubin Total 0.3 mg/dL (0.2-1.2 mg/dL) BUN 15 mg/dL (4-20 mg/dL) Calcium 9.3 mg/dL (8.6-10.0 mg/dL) Chloride 109 mEq/L (99-109 mEq/L) CO2 27 mEq/L (22-32 mEq/L) Creatinine 1.04 mg/dL H (0.44-1.03 mg/dL) eGFR 51 A (>60- ) Globulin 2.6 g/dL (1.9-4.3 g/dL) Glucose 249 mg/dL H (70-100 mg/dL) Potassium 4.1 mEq/L (3.6-5.1 mEq/L) Sodium 144 mEq/L (136-144 mEq/L) Protein 5.6 g/dL L (6.1-7.9 g/dL) LAB--CHEMISTRY from 06/03/2013 7:02 AMAnion Gap 7 (3-20 ) Albumin 3.1 g/dL L (3.5-4.8 g/dL) Alkaline Phosphatase 61 U/L (26-104 U/L) ALT (SGPT) 19 U/L (14-54 U/L) AST (SGOT) 30 U/L (15-41 U/L) Bilirubin Total 0.6 mg/dL (0.2-1.2 mg/dL) BUN 14 mg/dL (4-20 mg/dL) Calcium 8.9 mg/dL (8.6-10.0 mg/dL) Chloride 108 mEq/L (99-109 mEq/L) CO2 27 mEq/L (22-32 mEq/L) Creatinine 1.02 mg/dL (0.44-1.03 mg/dL) eGFR 52 A (>60- ) Globulin 2.4 g/dL (1.9-4.3 g/dL) Glucose 145 mg/dL H (70-100 mg/dL) Potassium 3.4 mEq/L L (3.6-5.1 mEq/L) Sodium 142 mEq/L (136-144 mEq/L) Protein 5.5 g/dL L (6.1-7.9 g/dL) LAB--CHEMISTRY from 06/04/2013 6:13 AMAnion Gap 6 (3-20 ) Albumin 3.1 g/dL L (3.5-4.8 g/dL) Alkaline Phosphatase 62 U/L (26-104 U/L) ALT (SGPT) 19 U/L (14-54 U/L) AST (SGOT) 26 U/L (15-41 U/L) Bilirubin Total 0.6 mg/dL (0.2-1.2 mg/dL) BUN 22 mg/dL H (4-20 mg/dL) Calcium 8.9 mg/dL (8.6-10.0 mg/dL) Chloride 109 mEq/L (99-109 mEq/L) CO2 26 mEq/L (22-32 mEq/L) Creatinine 1.00 mg/dL (0.44-1.03 mg/dL) Ferritin 323 ng/mL H (11-307 ng/mL) eGFR 53 A (>60- ) Globulin 2.4 g/dL (1.9-4.3 g/dL) Glucose 119 mg/dL H (70-100 mg/dL) Iron 186 ug/dL H (50-170 ug/dL) Potassium 4.0 mEq/L (3.6-5.1 mEq/L) Sodium 141 mEq/L (136-144 mEq/L) Phosphorus 3.4 mg/dL (2.4-4.7 mg/dL) Percent Saturation 83 % H (11-46 %) Iron Binding Capacity 224 ug/dL L (286-569 ug/dL) Protein 5.5 g/dL L (6.1-7.9 g/dL) Transferrin 150 mg/dL L (192-382 mg/dL) LAB--CHEMISTRY from 06/05/2013 4:38 AMAnion Gap 6 (3-20 ) Albumin 2.7 g/dL L (3.5-4.8 g/dL) Alkaline Phosphatase 53 U/L (26-104 U/L) ALT (SGPT) 14 U/L (14-54 U/L) AST (SGOT) 20 U/L (15-41 U/L) Bilirubin Total 0.6 mg/dL (0.2-1.2 mg/dL) BUN 27 mg/dL H (4-20 mg/dL) Calcium 8.7 mg/dL (8.6-10.0 mg/dL) Chloride 108 mEq/L (99-109 mEq/L) CO2 26 mEq/L (22-32 mEq/L) Creatinine 0.87 mg/dL (0.44-1.03 mg/dL) eGFR >60 (>60- ) Globulin 2.1 g/dL (1.9-4.3 g/dL) Glucose 105 mg/dL H (70-100 mg/dL) Potassium 3.7 mEq/L (3.6-5.1 mEq/L) Sodium 140 mEq/L (136-144 mEq/L) Protein 4.8 g/dL L (6.1-7.9 g/dL) LAB--CHEMISTRY from 06/06/2013 4:35 AMAnion Gap 4 (3-20 ) Albumin 2.9 g/dL L (3.5-4.8 g/dL) Alkaline Phosphatase 58 U/L (26-104 U/L) ALT (SGPT) 18 U/L (14-54 U/L) AST (SGOT) 19 U/L (15-41 U/L) Bilirubin Total 0.6 mg/dL (0.2-1.2 mg/dL) BUN 25 mg/dL H (4-20 mg/dL) Calcium 8.5 mg/dL L (8.6-10.0 mg/dL) Chloride 106 mEq/L (99-109 mEq/L) CO2 30 mEq/L (22-32 mEq/L) Creatinine 0.94 mg/dL (0.44-1.03 mg/dL) eGFR 57 A (>60- ) Globulin 2.1 g/dL (1.9-4.3 g/dL) Glucose 108 mg/dL H (70-100 mg/dL) Potassium 3.4 mEq/L L (3.6-5.1 mEq/L) Sodium 140 mEq/L (136-144 mEq/L) Protein 5.0 g/dL L (6.1-7.9 g/dL) LAB--HEMATOLOGY from 05/31/2013 9:23 AMAbsolute Basophils 0.02 THOUS (0.00-0.20 THOUS) Absolute Eosinophils 0.09 THOUS (0.00-0.50 THOUS) Absolute Lymphocytes 0.56 THOUS L (0.80-3.30 THOUS) Absolute Monocytes 0.55 THOUS (0.30-1.00 THOUS) Absolute Neutrophils 2.42 THOUS (1.90-7.00 THOUS) HCT 31.6 % L (37.0-47.0 %) HGB 10.2 g/dl L (12.0-16.0 g/dl) MCH 29.3 pg (27.0-32.0 pg) MCHC 32.3 g/dL (32.0-36.0 g/dL) MCV 90.8 fL (82.0-99.0 fL) MPV 10.1 fL (9.4-12.4 fL) Platelet Count 183 K/uL (150-400 K/uL) RBC 3.48 M/uL L (4.00-5.20 M/uL) RDW 14.4 % (11.5-14.5 %) WBC 3.7 K/uL L (4.8-10.8 K/uL) Basophils 1 % (0-2 %) Eosinophils 3 % (0-4 %) Immature Granulocytes 0.5 % (0.0-1.0 %) Lymphocytes 15 % L (20-46 %) Monocytes 15 % H (4-11 %) Nucleated RBC Automated 0.0 /100 WBC (0 /100 WBC) Neutrophils 66 % (51-75 %) LAB--HEMATOLOGY from 06/01/2013 4:52 AMAbsolute Basophils 0.01 THOUS (0.00-0.20 THOUS) Absolute Eosinophils 0.08 THOUS (0.00-0.50 THOUS) Absolute Lymphocytes 0.98 THOUS (0.80-3.30 THOUS) Absolute Monocytes 0.43 THOUS (0.30-1.00 THOUS) Absolute Neutrophils 1.35 THOUS L (1.90-7.00 THOUS) HCT 28.8 % L (37.0-47.0 %) HGB 9.1 g/dl L (12.0-16.0 g/dl) MCH 29.1 pg (27.0-32.0 pg) MCHC 31.6 g/dL L (32.0-36.0 g/dL) MCV 92.0 fL (82.0-99.0 fL) MPV 10.2 fL (9.4-12.4 fL) Platelet Count 189 K/uL (150-400 K/uL) RBC 3.13 M/uL L (4.00-5.20 M/uL) RDW 14.8 % H (11.5-14.5 %) WBC 2.9 K/uL L (4.8-10.8 K/uL) Basophils 0 % (0-2 %) Eosinophils 3 % (0-4 %) Immature Granulocytes 0.3 % (0.0-1.0 %) Lymphocytes 34 % (20-46 %) Monocytes 15 % H (4-11 %) Nucleated RBC Automated 0.0 /100 WBC (0 /100 WBC) Neutrophils 47 % L (51-75 %) LAB--HEMATOLOGY from 06/02/2013 5:55 AMAbsolute Basophils 0.00 THOUS (0.00-0.20 THOUS) Absolute Eosinophils 0.00 THOUS (0.00-0.50 THOUS) Absolute Lymphocytes 0.32 THOUS L (0.80-3.30 THOUS) Absolute Monocytes 0.06 THOUS L (0.30-1.00 THOUS) Absolute Neutrophils 3.14 THOUS (1.90-7.00 THOUS) HCT 30.0 % L (37.0-47.0 %) HGB 9.5 g/dl L (12.0-16.0 g/dl) MCH 28.7 pg (27.0-32.0 pg) MCHC 31.7 g/dL L (32.0-36.0 g/dL) MCV 90.6 fL (82.0-99.0 fL) MPV 10.2 fL (9.4-12.4 fL) Platelet Count 197 K/uL (150-400 K/uL) RBC 3.31 M/uL L (4.00-5.20 M/uL) RDW 14.9 % H (11.5-14.5 %) WBC 3.5 K/uL L (4.8-10.8 K/uL) Basophils 0 % (0-2 %) Eosinophils 0 % (0-4 %) Immature Granulocytes 0.0 % (0.0-1.0 %) Lymphocytes 9 % L (20-46 %) Monocytes 2 % L (4-11 %) Nucleated RBC Automated 0.0 /100 WBC (0 /100 WBC) Neutrophils 89 % H (51-75 %) LAB--HEMATOLOGY from 06/03/2013 7:02 AMAbsolute Basophils 0.00 THOUS (0.00-0.20 THOUS) Absolute Eosinophils 0.00 THOUS (0.00-0.50 THOUS) Absolute Lymphocytes 0.49 THOUS L (0.80-3.30 THOUS) Absolute Monocytes 0.41 THOUS (0.30-1.00 THOUS) Absolute Neutrophils 7.48 THOUS H (1.90-7.00 THOUS) HCT 29.2 % L (37.0-47.0 %) HGB 9.7 g/dl L (12.0-16.0 g/dl) MCH 29.6 pg (27.0-32.0 pg) MCHC 33.2 g/dL (32.0-36.0 g/dL) MCV 89.0 fL (82.0-99.0 fL) MPV 9.3 fL L (9.4-12.4 fL) Platelet Count 186 K/uL (150-400 K/uL) RBC 3.28 M/uL L (4.00-5.20 M/uL) RDW 14.8 % H (11.5-14.5 %) WBC 8.4 K/uL (4.8-10.8 K/uL) Basophils 0 % (0-2 %) Eosinophils 0 % (0-4 %) Immature Granulocytes 0.2 % (0.0-1.0 %) Lymphocytes 6 % L (20-46 %) Monocytes 5 % (4-11 %) Nucleated RBC Automated 0.0 /100 WBC (0 /100 WBC) Neutrophils 89 % H (51-75 %) LAB--HEMATOLOGY from 06/04/2013 6:13 AMAbsolute Basophils 0.00 THOUS (0.00-0.20 THOUS) Absolute Eosinophils 0.00 THOUS (0.00-0.50 THOUS) Absolute Lymphocytes 0.78 THOUS L (0.80-3.30 THOUS) Absolute Monocytes 0.39 THOUS (0.30-1.00 THOUS) Absolute Neutrophils 18.62 THOUS H (1.90-7.00 THOUS) HCT 31.2 % L (37.0-47.0 %) HGB 9.9 g/dl L (12.0-16.0 g/dl) MCH 29.0 pg (27.0-32.0 pg) MCHC 31.7 g/dL L (32.0-36.0 g/dL) MCV 91.5 fL (82.0-99.0 fL) MPV 10.0 fL (9.4-12.4 fL) Platelet Count 243 K/uL (150-400 K/uL) RBC 3.41 M/uL L (4.00-5.20 M/uL) RDW 15.1 % H (11.5-14.5 %) WBC 19.6 K/uL H (4.8-10.8 K/uL) Bands 10 % H (0-8 %) Basophils 0 % (0-2 %) Eosinophils 0 % (0-4 %) Lymphocytes 4 % L (20-46 %) Monocytes 2 % L (4-11 %) Nucleated RBC Automated 0.0 /100 WBC (0 /100 WBC) Differential Reviewed Neutrophils 85 % H (51-75 %) LAB--HEMATOLOGY from 06/05/2013 4:38 AMAbsolute Basophils 0.00 THOUS (0.00-0.20 THOUS) Absolute Eosinophils 0.00 THOUS (0.00-0.50 THOUS) Absolute Lymphocytes 0.17 THOUS L (0.80-3.30 THOUS) Absolute Monocytes 0.00 THOUS L (0.30-1.00 THOUS) Absolute Neutrophils 16.34 THOUS H (1.90-7.00 THOUS) HCT 27.7 % L (37.0-47.0 %) HGB 8.8 g/dl L (12.0-16.0 g/dl) MCH 28.9 pg (27.0-32.0 pg) MCHC 31.8 g/dL L (32.0-36.0 g/dL) MCV 91.1 fL (82.0-99.0 fL) MPV 10.2 fL (9.4-12.4 fL) Platelet Count 210 K/uL (150-400 K/uL) RBC 3.04 M/uL L (4.00-5.20 M/uL) RDW 15.0 % H (11.5-14.5 %) WBC 16.5 K/uL H (4.8-10.8 K/uL) Bands 4 % (0-8 %) Basophils 0 % (0-2 %) Eosinophils 0 % (0-4 %) Lymphocytes 1 % L (20-46 %) Monocytes 0 % L (4-11 %) Nucleated RBC Automated 0.0 /100 WBC (0 /100 WBC) Differential Manual A Neutrophils 95 % H (51-75 %) LAB--HEMATOLOGY from 06/06/2013 4:35 AMAbsolute Basophils 0.00 THOUS (0.00-0.20 THOUS) Absolute Eosinophils 0.00 THOUS (0.00-0.50 THOUS) Absolute Lymphocytes 0.27 THOUS L (0.80-3.30 THOUS) Absolute Monocytes 0.00 THOUS L (0.30-1.00 THOUS) Absolute Neutrophils 13.03 THOUS H (1.90-7.00 THOUS) HCT 27.6 % L (37.0-47.0 %) HGB 8.8 g/dl L (12.0-16.0 g/dl) MCH 28.9 pg (27.0-32.0 pg) MCHC 31.9 g/dL L (32.0-36.0 g/dL) MCV 90.5 fL (82.0-99.0 fL) MPV 9.9 fL (9.4-12.4 fL) Platelet Count 179 K/uL (150-400 K/uL) RBC 3.05 M/uL L (4.00-5.20 M/uL) RDW 14.7 % H (11.5-14.5 %) WBC 13.3 K/uL H (4.8-10.8 K/uL) Bands 5 % (0-8 %) Basophils 0 % (0-2 %) Eosinophils 0 % (0-4 %) Lymphocytes 2 % L (20-46 %) Monocytes 0 % L (4-11 %) Nucleated RBC Automated 0.0 /100 WBC (0 /100 WBC) Differential Manual A Neutrophils 93 % H (51-75 %) LAB--IMMUNOLOGY from 06/01/2013 11:05 [place], Leukemia Panel See Report Performed Antibodies See Comment
--- OUTSIDE RECORDS SUMMARY | 2016-12-18 05:52 | XMS REPORT | Referral Summary ---
Author Author [facility] Organization [facility] Address Unknown Phone Unavailable Care Team Providers Care Blood Bank Laboratory Technologist Name Role Phone Daniel Hough Primary Care Physician [phone] Encounter VC Date(s): 12/25/14 - 12/25/14 [facility], Family [address] [place] [id number] Discharge Diagnosis: Labial lesion Discharge Disposition: 01-Home or Self Care Attending Physician: Jacy Ford APRN Admitting Physician: Jacy Ford APRN Vital Signs Most recent to 1 oldest [Reference Range]: Blood Pressure 142/78 mmHg [90-140/60-90 mmHg] *HI* (12/25/14 10:11 AM) Problem List Condition Effective Dates Status [...] TIMES A DAY, # 120 tabs, eRx: [facility] #[id number], TAKE ONE TABLET BY MOUTH FOUR TIMES A DAY Start Date: 06/26/15 Status: Ordered furosemide 80 mg oral tablet 0.5 tabs, Oral, BID, 0 Refill(s) Start Date: 02/15/14 Status: Ordered losartan 100 mg oral tablet See Instructions, TAKE ONE TABLET BY MOUTH DAILY, # 30 tabs, 2 Refill(s), eRx: [facility] #[id number], TAKE ONE TABLET BY MOUTH DAILY Start Date: 01/09/15 Status: Ordered Metoprolol Tartrate 50 mg oral tablet See Instructions, TAKE TWO TABLETS BY MOUTH EVERY MORNING, # 180 tabs, 2 Refill( s), eRx: [facility] #[id number], TAKE TWO TABLETS BY MOUTH EVERY MORNING Start Date: 10/31/14 Status: Ordered mirtazapine 15 mg oral tablet See Instructions, TAKE ONE TABLET BY MOUTH AT BEDTIME, # 30 tabs, 1 Refill(s), eRx: [facility] #[id number], TAKE ONE TABLET BY MOUTH AT BEDTIME Start Date: 06/19/15 Status: Ordered Ocuvite tabs, Oral, Daily, 0 Refill(s) Start Date: 12/25/14 Status: Ordered omeprazole 20 mg, Oral, Daily, 0 Refill(s) Start Date: 03/11/15 Status: Ordered potassium chloride 10 mEq oral capsule, extended release See Instructions, TAKE ONE CAPSULE BY MOUTH THREE TIMES A DAY, # 120 unknown unit, 2 Refill(s), eRx: [facility] #[id number], TAKE ONE CAPSULE BY MOUTH THREE TIMES A DAY Start Date: 04/24/15 Status: Ordered traZODone 100 mg oral tablet See Instructions, TAKE ONE TABLET BY MOUTH AT BEDTIME, # 30 tabs, 2 Refill(s), eRx: [facility] #[id number], TAKE ONE TABLET BY MOUTH AT BEDTIME Start Date: 04/17/15 Status: Ordered Zocor 20 mg oral tablet See Instructions, TAKE ONE TABLET BY MOUTH AT BEDTIME, # 30 tabs, 2 Refill(s), eRx: [facility] #[id number], TAKE ONE TABLET BY MOUTH AT BEDTIME [...] herniated disc repair 1974 Hysterectomy 1973 Appendectomy 194 Tonsillectomy 1Normal -repeat in 10yrs 2chondroplasty, excision plica Social History Social History Type Response Smoking Status Never smoker; Type: Cigarettes Assessment and Plan Extracted from: Title: Ambulatory Patient Education Author: Jacy Ford APRN Date: Allergy Rash A rash is a change in the color or feel of your skin. There are many different types of rashes. You may have other problems along with your rash. HOME CARE Avoid the thing that caused your rash. Do not scratch your rash. You may take cools baths to help stop itching. Only take medicines as told by your doctor. Keep all doctor visits as told. GET HELP RIGHT AWAY IF: Your pain, puffiness (swelling ), or redness gets worse. You have a fever. You have new or severe problems. You have body aches, watery poop (diarrhea ), or you throw up (vomit ). Your rash is not better after 3 days. MAKE SURE YOU: Understand these instructions. Will watch your condition. Will get help right away if you are not doing well or get worse. Document Released: 01/18/2009 Document Revised: 10/24/2012 Document Reviewed: [employer] Patient Information 2014 [employer]. No follow up information was provided. Extracted from: Title: Office Visit Note Author: Jacy Ford APRN Date: 12/25/14 Assessment/Plan 1.Labial lesion Normal exam, external labia within normal limits for age. No lesions, rash, excoriation noted. Reassurance given to pt. RTC/IC/ER if symptoms not improving or worsen. Ordered: Office Visit Level 3 Est [id number]
--- OUTSIDE RECORDS SUMMARY | 2016-12-18 05:52 | XMS REPORT | Referral Summary ---
Author Author [facility], Family Medicine Organization [facility] Address Unknown Phone Unavailable Care Team Providers Care Tank Truck Driver Name Role Phone Daniel Hough Primary Care Physician [phone] Encounter VC Date(s): 02/19/15 - 02/19/15 [facility], [address] [place] [address] Discharge Disposition: 01-Home or Self Care Attending Physician: Saul Hough MD Admitting Physician: Saul Hough MD Vital Signs Most recent to 1 oldest [Reference Range]: Temperature Tympanic 36.8 degC [36.6-38.1 degC] (02/19/15 8:47 AM) Peripheral Pulse 76 bpm Rate [60-100 bpm] (02/19/15 8:47 AM) Blood Pressure 138/78 mmHg [90-140/60-90 mmHg] (02/19/15 8:47 AM) Problem List Condition Effective Dates Status [...] Resolved child(Confirmed) DJD (degenerative Active joint disease)(Confirmed) Coronary angioplasty Active status(Confirmed) Peptic ulcer Active disease(Confirmed) Chronic Active insomnia(Confirmed) Shingles January 2012 Resolved 2012(Confirmed) 1managed by Dr. eRddy 2POWERPORT catheter Allergies, Adverse Reactions, Alerts Substance [...] DAY, # 120 tabs, 2 Refill(s), eRx: [facility] #[id number], TAKE ONE TABLET BY MOUTH FOUR TIMES A DAY Start Date: 07/24/15 Status: Ordered furosemide 40 mg/5 mL oral solution 40 mg, Oral, BID, 0 Refill(s) Start Date: 07/16/15 Status: Ordered losartan 100 mg oral tablet 100 mg 1 tabs, Oral, Daily, # 90 tabs, 1 Refill(s), Pharmacy: [facility] # [id number], 1 tabs Oral Daily,x90 days Start Date: 07/15/15 Stop Date: 10/13/15 Status: Ordered Metoprolol Tartrate 50 mg oral tablet See Instructions, TAKE TWO TABLETS BY MOUTH EVERY MORNING, # 180 tabs, 1 Refill( s), eRx: [facility] #[id number], TAKE TWO TABLETS BY MOUTH EVERY MORNING Start Date: 07/31/15 Status: Ordered mirtazapine 15 mg oral tablet See Instructions, TAKE ONE TABLET BY MOUTH AT BEDTIME, # 30 tabs, eRx: [facility] #[id number], TAKE ONE TABLET BY MOUTH AT BEDTIME Start Date: 08/21/15 Status: Ordered Ocuvite tabs, Oral, Daily, 0 Refill(s) Start Date: 07/16/15 Status: Ordered omeprazole 20 mg, Oral, Daily, 0 Refill(s) Start Date: 03/11/15 Status: Ordered potassium chloride 10 mEq oral capsule, extended release See Instructions, TAKE ONE CAPSULE BY MOUTH THREE TIMES A DAY, # 120 unknown unit, 1 Refill(s), eRx: [facility] #[id number], TAKE ONE CAPSULE BY MOUTH THREE TIMES A DAY Start Date: 08/21/15 Status: Ordered traZODone 100 mg oral tablet See Instructions, TAKE ONE TABLET BY MOUTH AT BEDTIME, # 30 tabs, 1 Refill(s), eRx: [facility] #[id number], TAKE ONE TABLET BY MOUTH AT BEDTIME Start Date: 07/15/15 Status: Ordered Zocor 20 mg oral tablet See Instructions, TAKE ONE TABLET BY MOUTH AT BEDTIME, # 30 tabs, 1 Refill(s), eRx: [facility] #[id number], TAKE ONE TABLET BY MOUTH AT BEDTIME [...] herniated disc repair 1974 Hysterectomy 1974 Appendectomy 194 Tonsillectomy 1Normal -repeat in 10yrs 2chondroplasty, excision plica Social History Social History Type Response Smoking Status Never smoker; Type: Cigarettes Assessment and Plan Extracted from: Title: Ambulatory Patient Education Author: Saul Hough MD Date: 02/19 Family Medicine Diet for Gastroesophageal Reflux Disease, Adult Reflux (acid reflux ) is when acid from your stomach flows up into the esophagus. When acid comes in contact with the esophagus, the acid causes irritation and soreness (inflammation ) in the esophagus. When reflux happens often or so severely that it causes damage to the esophagus, it is called gastroesophageal reflux disease (GERD). Nutrition therapy can help ease the discomfort of GERD. FOODS OR DRINKS TO AVOID OR LIMIT Smoking or chewing tobacco. Nicotine is one of the most potent stimulants to acid production in the gastrointestinal tract. Caffeinated and decaffeinated coffee and black tea. Regular or low-calorie carbonated beverages or energy drinks (caffeine- free carbonated beverages are allowed). Strong spices, such as black pepper, white pepper, red pepper, cayenne, noonan powder, and chili powder. Peppermint or spearmint. Chocolate. High-fat foods, including meats and fried foods. Extra added fats including oils, butter, salad dressings, and nuts. Limit these to less than 8 tsp per day. Fruits and vegetables if they are not tolerated, such as citrus fruits or tomatoes. Alcohol. Any food that seems to aggravate your condition. If you have questions regarding your diet, call your caregiver or a registered dietitian. OTHER THINGS THAT MAY HELP GERD INCLUDE: Eating your meals slowly, in a relaxed setting. Eating 5 to 6 small meals per day instead of 3 large meals. Eliminating food for a period of time if it causes distress. Not lying down until 3 hours after eating a meal. Keeping the head of your bed raised 6 to 9 inches (15 to 23 cm) by using a foam wedge or blocks under the legs of the bed. Lying flat may make symptoms worse. Being physically active. Weight loss may be helpful in reducing reflux in overweight or obese adults. Wear loose fitting clothing EXAMPLE MEAL PLAN This meal plan is approximately 2,000 calories based on ChooseMyPlate.gov meal planning guidelines. Breakfast cup cooked oatmeal. 1 cup strawberries. 1 cup low-fat milk. 1 oz almonds. Snack 1 cup cucumber slices. 6 oz yogurt (made from low-fat or fat-free milk). Lunch 2 slice whole-wheat bread. 2 oz sliced turkey. 2 tsp mayonnaise. 1 cup blueberries. 1 cup snap peas. Snack 6 whole-wheat crackers. 1 oz string cheese. Dinner cup brown rice. 1 cup mixed veggies. 1 tsp olive oil. 3 oz grilled fish. Document Released: 08/02/2006 Document Revised: 10/24/2012 Document Reviewed: [facility] Patient Information 2014 [employer] [facility]. Esophagitis Esophagitis is inflammation of the esophagus. It can involve swelling, soreness , and pain in the esophagus. This condition can make it difficult and painful to swallow. CAUSES Most causes of esophagitis are not serious. Many different factors can cause esophagitis, including: Gastroesophageal reflux disease (GERD). This is when acid from your stomach flows up into the esophagus. Recurrent vomiting. An allergic-type reaction. Certain medicines, especially those that come in large pills. Ingestion of harmful chemicals, such as household cleaning products. Heavy alcohol use. An infection of the esophagus. Radiation treatment for cancer. Certain diseases such as sarcoidosis, Crohn's disease, and scleroderma. These diseases may cause recurrent esophagitis. SYMPTOMS Trouble swallowing. Painful swallowing. Chest pain. Difficulty breathing. Nausea. Vomiting. Abdominal pain. DIAGNOSIS Your caregiver will take your history and do a physical exam. Depending upon what your caregiver finds, certain tests may also be done, including: Barium X-ray. You will drink a solution that coats the esophagus, and X- rays will be taken. Endoscopy. A lighted tube is put down the esophagus so your caregiver can examine the area. Allergy tests. These can sometimes be arranged through follow-up visits. TREATMENT Treatment will depend on the cause of your esophagitis. In some cases, steroids or other medicines may be given to help relieve your symptoms or to treat the underlying cause of your condition. Medicines that may be recommended include: Viscous lidocaine, to soothe the esophagus. Antacids. Acid reducers. Proton pump inhibitors. Antiviral medicines for certain viral infections of the esophagus. Antifungal medicines for certain fungal infections of the esophagus. Antibiotic medicines, depending on the cause of the esophagitis. HOME CARE INSTRUCTIONS Avoid foods and drinks that seem to make your symptoms worse. Eat small, frequent meals instead of large meals. Avoid eating for the 3 hours prior to your bedtime. If you have trouble taking pills, use a pill splitter to decrease the size and likelihood of the pill getting stuck or injuring the esophagus on the way down. Drinking water after taking a pill also helps. Stop smoking if you smoke. Maintain a healthy weight. Wear loose-fitting clothing. Do not wear anything tight around your waist that causes pressure on your stomach. Raise the head of your bed 6 to 8 inches with wood blocks to help you sleep. Extra pillows will not help. Only take wckt-utm-qzmbxcp or prescription medicines as directed by your caregiver. SEEK IMMEDIATE MEDICAL CARE IF: You have severe chest pain that radiates into your arm, neck, or jaw. You feel sweaty, dizzy, or lightheaded. You have shortness of breath. You vomit blood. You have difficulty or pain with swallowing. You have bloody or black, tarry stools. You have a fever. You have a burning sensation in the chest more than 3 times a week for more than 2 weeks. You cannot swallow, drink, or eat. You drool because you cannot swallow your saliva. MAKE SURE YOU: Understand these instructions. Will watch your condition. Will get help right away if you are not doing well or get worse. Document Released: 09/09/2005 Document Revised: 10/24/2012 Document Reviewed: ExitCare Patient Information 2014 [employer] [facility]. No follow up information was provided. Extracted from: Title: Office Visit Note Author: Saul Hough MD Date: 02/19/15 Assessment/Plan GERD (gastroesophageal reflux disease) Prilosec 20mg daily and continue with the carafate. Ordered: Office Visit Level 4 Est 31412 Peptic ulcer disease Ordered: Office Visit Level 4 Est 12571
--- OUTSIDE RECORDS SUMMARY | 2016-12-18 05:52 | XMS REPORT | Referral Summary ---
Author Author [facility], Family Medicine Organization [facility] Address Unknown Phone Unavailable Care Team Providers Care Inbound Telemarketer Name Role Phone Daniel Hough Primary Care Physician [phone] Encounter VC Date(s): 01/29/15 - 01/29/15 [facility], Family [address] [place] [address] Discharge Diagnosis: Chronic pain [...] TIMES A DAY, # 120 tabs, eRx: [facility] #[id number], TAKE ONE TABLET BY MOUTH FOUR TIMES A DAY Start Date: 05/29/15 Status: Ordered furosemide 80 mg oral tablet 0.5 tabs, Oral, BID, 0 Refill(s) Start Date: 02/15/14 Status: Ordered losartan 100 mg oral tablet See Instructions, TAKE ONE TABLET BY MOUTH DAILY, # 30 tabs, 2 Refill(s), eRx: [facility] #[id number], TAKE ONE TABLET BY MOUTH DAILY Start Date: 01/09/15 Status: Ordered Metoprolol Tartrate 50 mg oral tablet See Instructions, TAKE TWO TABLETS BY MOUTH EVERY MORNING, # 180 tabs, 2 Refill( s), eRx: [facility] #[id number], TAKE TWO TABLETS BY MOUTH EVERY MORNING Start Date: 10/31/14 Status: Ordered mirtazapine 15 mg oral tablet See Instructions, TAKE ONE TABLET BY MOUTH AT BEDTIME, # 30 tabs, 1 Refill(s), eRx: [facility] #[id number], TAKE ONE TABLET BY MOUTH AT BEDTIME Start Date: 06/19/15 Status: Ordered Ocuvite tabs, Oral, Daily, 0 Refill(s) Start Date: 12/25/14 Status: Ordered omeprazole 20 mg, Oral, Daily, 0 Refill(s) Start Date: 03/11/15 Status: Ordered potassium chloride 10 mEq oral capsule, extended release See Instructions, TAKE ONE CAPSULE BY MOUTH THREE TIMES A DAY, # 120 unknown unit, 2 Refill(s), eRx: [facility] #[id number], TAKE ONE CAPSULE BY MOUTH THREE TIMES A DAY Start Date: 04/24/15 Status: Ordered traZODone 100 mg oral tablet See Instructions, TAKE ONE TABLET BY MOUTH AT BEDTIME, # 30 tabs, 2 Refill(s), eRx: [facility] #[id number], TAKE ONE TABLET BY MOUTH AT BEDTIME Start Date: 04/17/15 Status: Ordered Zocor 20 mg oral tablet See Instructions, TAKE ONE TABLET BY MOUTH AT BEDTIME, # 30 tabs, 2 Refill(s), eRx: [facility] #[id number], TAKE ONE TABLET BY MOUTH AT BEDTIME [...] applications, or slings as instructed. Only take zxsa-[id number]-[id number] or prescription medicines for pain, discomfort, or [...] 10/24/2012 Document Reviewed: ExitCare Patient Information 2014 [employer] [facility]. No follow up information was provided. Extracted from: Title: Office Visit Note Author: Saul Hough MD Date: 01/29/15 Assessment/Plan Anxiety Ordered: Office Visit Level 4 Est 19876 CAD Ordered: Office Visit Level 4 Est 95357 Chronic insomnia Will increase the trazodone to 75mg at bedtime and continue with the rest of the medications. Ordered: Office Visit Level 4 Est 41373 Chronic pain of right knee X-ray of the knee. Ordered: Office Visit Level 4 Est 80913 XR Knee 3 Views Right CKD (chronic kidney disease), stage III Ordered: Office Visit Level 4 Est 66539
--- OUTSIDE RECORDS SUMMARY | 2016-12-18 05:53 | XMS REPORT | Referral Summary ---
Author Author [facility], Family Medicine Organization [facility] Address Unknown Phone Unavailable Care Team Providers Care Fish Grader Name Role Phone Daniel Hough Primary Care Physician [phone] Encounter VC Date(s): 01/29/15 - 01/29/15 [facility], Family [address] [place] [address] Discharge Diagnosis: Chronic pain of [...] TIMES A DAY, # 120 tabs, eRx: [facility] #[id number], TAKE ONE TABLET BY MOUTH FOUR TIMES A DAY Start Date: 05/29/15 Status: Ordered furosemide 80 mg oral tablet 0.5 tabs, Oral, BID, 0 Refill(s) Start Date: 02/15/14 Status: Ordered losartan 100 mg oral tablet See Instructions, TAKE ONE TABLET BY MOUTH DAILY, # 30 tabs, 2 Refill(s), eRx: [facility] #[id number], TAKE ONE TABLET BY MOUTH DAILY Start Date: 01/09/15 Status: Ordered Metoprolol Tartrate 50 mg oral tablet See Instructions, TAKE TWO TABLETS BY MOUTH EVERY MORNING, # 180 tabs, 2 Refill( s), eRx: [facility] #[id number], TAKE TWO TABLETS BY MOUTH EVERY MORNING Start Date: 10/31/14 Status: Ordered mirtazapine 15 mg oral tablet See Instructions, TAKE ONE TABLET BY MOUTH AT BEDTIME, # 30 tabs, 1 Refill(s), eRx: [facility] #[id number], TAKE ONE TABLET BY MOUTH AT BEDTIME Start Date: 06/19/15 Status: Ordered Ocuvite tabs, Oral, Daily, 0 Refill(s) Start Date: 12/25/14 Status: Ordered omeprazole 20 mg, Oral, Daily, 0 Refill(s) Start Date: 03/11/15 Status: Ordered potassium chloride 10 mEq oral capsule, extended release See Instructions, TAKE ONE CAPSULE BY MOUTH THREE TIMES A DAY, # 120 unknown unit, 2 Refill(s), eRx: [facility] #[id number], TAKE ONE CAPSULE BY MOUTH THREE TIMES A DAY Start Date: 04/24/15 Status: Ordered traZODone 100 mg oral tablet See Instructions, TAKE ONE TABLET BY MOUTH AT BEDTIME, # 30 tabs, 2 Refill(s), eRx: [facility] #[id number], TAKE ONE TABLET BY MOUTH AT BEDTIME Start Date: 04/17/15 Status: Ordered Zocor 20 mg oral tablet See Instructions, TAKE ONE TABLET BY MOUTH AT BEDTIME, # 30 tabs, 2 Refill(s), eRx: [facility] #[id number], TAKE ONE TABLET BY MOUTH AT BEDTIME [...] applications, or slings as instructed. Only take [id number] or prescription medicines for pain, discomfort, or [...] 10/24/2012 Document Reviewed: ExitCare Patient Information 2014 [employer] [facility]. No follow up information was provided. Extracted from: Title: Office Visit Note Author: Saul Hough MD Date: 01/29/15 Assessment/Plan Anxiety Ordered: Office Visit Level 4 Est 98387 CAD Ordered: Office Visit Level 4 Est 67063 Chronic insomnia Will increase the trazodone to 75mg at bedtime and continue with the rest of the medications. Ordered: Office Visit Level 4 Est 33931 Chronic pain of right knee X-ray of the knee. Ordered: Office Visit Level 4 Est 65807 XR Knee 3 Views Right CKD (chronic kidney disease), stage III Ordered: Office Visit Level 4 Est 74522
--- OUTSIDE RECORDS SUMMARY | 2016-12-18 05:53 | XMS REPORT | Referral Summary ---
Author Author [facility], Family Medicine Organization [facility] Address Unknown Phone Unavailable Care Team Providers Care Elementary [employer] Art Teacher Name Role Phone Daniel Hough Primary Care Physician [phone] Encounter VC Date(s): 01/29/15 - 01/29/15 [facility], Family [address] [place] [address] Discharge Diagnosis: Chronic pain of [...] TIMES A DAY, # 120 tabs, eRx: [facility] #[id number], TAKE ONE TABLET BY MOUTH FOUR TIMES A DAY Start Date: 05/29/15 Status: Ordered furosemide 80 mg oral tablet 0.5 tabs, Oral, BID, 0 Refill(s) Start Date: 02/15/14 Status: Ordered losartan 100 mg oral tablet See Instructions, TAKE ONE TABLET BY MOUTH DAILY, # 30 tabs, 2 Refill(s), eRx: [facility] #[id number], TAKE ONE TABLET BY MOUTH DAILY Start Date: 01/09/15 Status: Ordered Metoprolol Tartrate 50 mg oral tablet See Instructions, TAKE TWO TABLETS BY MOUTH EVERY MORNING, # 180 tabs, 2 Refill( s), eRx: [facility] #[id number], TAKE TWO TABLETS BY MOUTH EVERY MORNING Start Date: 10/31/14 Status: Ordered mirtazapine 15 mg oral tablet See Instructions, TAKE ONE TABLET BY MOUTH AT BEDTIME, # 30 tabs, 1 Refill(s), eRx: [facility] #[id number], TAKE ONE TABLET BY MOUTH AT BEDTIME Start Date: 06/19/15 Status: Ordered Ocuvite tabs, Oral, Daily, 0 Refill(s) Start Date: 12/25/14 Status: Ordered omeprazole 20 mg, Oral, Daily, 0 Refill(s) Start Date: 03/11/15 Status: Ordered potassium chloride 10 mEq oral capsule, extended release See Instructions, TAKE ONE CAPSULE BY MOUTH THREE TIMES A DAY, # 120 unknown unit, 2 Refill(s), eRx: [facility] #[id number], TAKE ONE CAPSULE BY MOUTH THREE TIMES A DAY Start Date: 04/24/15 Status: Ordered traZODone 100 mg oral tablet See Instructions, TAKE ONE TABLET BY MOUTH AT BEDTIME, # 30 tabs, 2 Refill(s), eRx: [facility] #[id number], TAKE ONE TABLET BY MOUTH AT BEDTIME Start Date: 04/17/15 Status: Ordered Zocor 20 mg oral tablet See Instructions, TAKE ONE TABLET BY MOUTH AT BEDTIME, # 30 tabs, 2 Refill(s), eRx: [facility] #[id number], TAKE ONE TABLET BY MOUTH AT BEDTIME [...] applications, or slings as instructed. Only take ardz-nfe-meyxjhe or prescription medicines for pain, discomfort, or [...] 10/24/2012 Document Reviewed: ExitCare Patient Information 2014 [employer] [facility]. No follow up information was provided. Extracted from: Title: Office Visit Note Author: Saul Hough MD Date: 01/29/15 Assessment/Plan Anxiety Ordered: Office Visit Level 4 Est 34701 CAD Ordered: Office Visit Level 4 Est 54706 Chronic insomnia Will increase the trazodone to 75mg at bedtime and continue with the rest of the medications. Ordered: Office Visit Level 4 Est 44377 Chronic pain of right knee X-ray of the knee. Ordered: Office Visit Level 4 Est 41162 XR Knee 3 Views Right CKD (chronic kidney disease), stage III Ordered: Office Visit Level 4 Est 89795
--- OUTSIDE RECORDS SUMMARY | 2016-12-18 05:53 | XMS REPORT | Referral Summary ---
Author Author [facility], Family Medicine Organization [facility] Address Unknown Phone Unavailable Care Team Providers Care Seismic Interpreter Name Role Phone Daniel Hough Primary Care Physician [phone] Encounter VC Date(s): 06/09/16 - 06/09/16 [facility], [address] [place] [address] Discharge Disposition: 01-Home or Self Care Attending Physician: Saul Hough MD Admitting Physician: Saul Hough MD Vital Signs Most recent to 1 oldest [Reference Range]: Blood Pressure 154/82 mmHg [90-140/60-90 mmHg] *HI* (06/09/16 10:39 AM) Problem List Condition Effective Dates Status [...] Mild Active sulfanilamide topical Active Medications acetaminophen 325 mg oral tablet 650 mg 2 tabs, Oral, QID, as needed for pain, 0 Refill(s) Start Date: 09/30/15 Status: Ordered acetaminophen 500 mg oral tablet 500 mg 1 tabs, Oral, BID, as needed for fever, # 60 tabs, 0 Refill(s) Start Date: 06/09/16 Status: Ordered Artificial Tears 1 drops, Eye-Both, Daily, as needed for dry eyes, 0 Refill(s) Start Date: 09/30/15 Status: Ordered furosemide 40 mg/5 mL oral solution 40 mg, Oral, BID, 0 Refill(s) Start Date: 07/16/15 Status: Ordered losartan 100 mg oral tablet See Instructions, TAKE ONE TABLET BY MOUTH DAILY, # 90 tabs, eRx: [facility] #[id number], TAKE ONE TABLET BY MOUTH DAILY Start Date: 04/14/16 Status: Ordered Metoprolol Tartrate 50 mg oral tablet See Instructions, TAKE TWO TABLETS BY MOUTH EVERY MORNING, # 180 tabs, eRx: [facility] #[id number], TAKE TWO TABLETS BY MOUTH EVERY MORNING Start Date: 05/19/16 Status: Ordered MiraLax oral powder for reconstitution 17 g, Oral, Daily, 0 Refill(s) Start Date: 09/30/15 Status: Ordered mirtazapine 15 mg oral tablet See Instructions, TAKE ONE TABLET BY MOUTH AT BEDTIME, # 30 tabs, eRx: [facility] #[id number], TAKE ONE TABLET BY MOUTH AT BEDTIME Start Date: 06/03/16 Status: Ordered Ocuvite tabs, Oral, Daily, 0 Refill(s) Start Date: 06/09/16 Status: Ordered omeprazole 20 mg, Oral, Daily, 0 Refill(s) Start Date: 03/11/15 Status: Ordered potassium chloride 10 mEq oral capsule, extended release See Instructions, TAKE ONE CAPSULE BY MOUTH THREE TIMES A DAY, # 90 unknown unit , eRx: [facility] #[id number], TAKE ONE CAPSULE BY MOUTH THREE TIMES A DAY Start Date: 06/09/16 Status: Ordered simvastatin 20 mg oral tablet See Instructions, TAKE ONE TABLET BY MOUTH AT BEDTIME, # 30 tabs, eRx: [facility] #[id number], TAKE ONE TABLET BY MOUTH AT BEDTIME Start Date: 06/09/16 Status: Ordered sucralfate 1 g oral tablet See Instructions, TAKE ONE TABLET BY MOUTH FOUR TIMES A DAY, # 120 tabs, eRx: [facility] #[id number], TAKE ONE TABLET BY MOUTH FOUR TIMES A DAY Start Date: 05/19/16 Status: Ordered traMADol 50 mg oral tablet 1-2 tabs, Oral, q4hr, as needed for pain, 0 Refill(s) Start Date: 09/30/15 Status: Ordered traZODone 100 mg oral tablet See Instructions, TAKE ONE TABLET BY MOUTH EVERY NIGHT AT BEDTIME, # 30 tabs, 0 Refill(s), Pharmacy: [facility] #[id number], TAKE ONE TABLET BY MOUTH EVERY NIGHT AT BEDTIME Start Date: 06/02/16 Status: Ordered Results No data available for [...] herniated disc repair 1974 Hysterectomy 1973 Appendectomy 1948 Tonsillectomy 1Normal -repeat in 10yrs 2chondroplasty, excision plica Social History Social History Type Response Smoking Status Never smoker; Type: Cigarettes Assessment and Plan No data available for this section
--- OUTSIDE RECORDS SUMMARY | 2016-12-18 05:53 | XMS REPORT | Referral Summary ---
Author Author [facility] Organization [facility] Address Unknown Phone Unavailable Care Team Providers Care Non Destructive Testing Engineer Name Role Phone Daniel Hough Primary Care Physician [phone] Encounter VC Date(s): 06/25/16 - 06/25/16 [facility] [address] [place] [id number] Discharge Disposition: 01-Home or Self Care Attending Physician: Saul Hough MD Admitting Physician: Saul Hough MD Vital Signs No data available for this section Problem List Condition Effective Dates Status Health [...] BY MOUTH DAILY, # 90 tabs, eRx: [facility] #[id number], TAKE ONE TABLET BY MOUTH DAILY Start Date: 04/14/16 Status: Ordered Metoprolol Tartrate 50 mg oral tablet See Instructions, TAKE TWO TABLETS BY MOUTH EVERY MORNING, # 180 tabs, eRx: [facility] #[id number], TAKE TWO TABLETS BY MOUTH EVERY MORNING Start Date: 05/19/16 Status: Ordered MiraLax oral powder for reconstitution 17 g, Oral, Daily, 0 Refill(s) Start Date: 09/30/15 Status: Ordered mirtazapine 15 mg oral tablet See Instructions, TAKE ONE TABLET BY MOUTH AT BEDTIME, # 30 tabs, eRx: [facility] #[id number], TAKE ONE TABLET BY MOUTH AT BEDTIME Start Date: 06/03/16 Status: Ordered Ocuvite tabs, Oral, Daily, 0 Refill(s) Start Date: 06/09/16 Status: Ordered omeprazole 20 mg, Oral, Daily, 0 Refill(s) Start Date: 03/11/15 Status: Ordered potassium chloride 10 mEq oral capsule, extended release See Instructions, TAKE ONE CAPSULE BY MOUTH THREE TIMES A DAY, # 90 unknown unit , eRx: [facility] #[id number], TAKE ONE CAPSULE BY MOUTH THREE TIMES A DAY Start Date: 06/09/16 Status: Ordered simvastatin 20 mg oral tablet See Instructions, TAKE ONE TABLET BY MOUTH AT BEDTIME, # 30 tabs, eRx: [facility] #[id number], TAKE ONE TABLET BY MOUTH AT BEDTIME Start Date: 06/09/16 Status: Ordered sucralfate 1 g oral tablet See Instructions, TAKE ONE TABLET BY MOUTH FOUR TIMES A DAY, # 120 tabs, eRx: [facility] #[id number], TAKE ONE TABLET BY MOUTH FOUR TIMES A DAY Start Date: 06/23/16 Status: Ordered traMADol 50 mg oral tablet 1-2 tabs, Oral, q4hr, as needed for pain, 0 Refill(s) Start Date: 09/30/15 Status: Ordered traZODone 100 mg oral tablet See Instructions, TAKE ONE TABLET BY MOUTH EVERY NIGHT AT BEDTIME, # 30 tabs, eRx: [facility] #[id number], TAKE ONE TABLET BY MOUTH EVERY NIGHT AT BEDTIME Start Date: 06/23/16 Status: Ordered Results No data available for this section Immunizations Vaccine Date Refusal Reason influenza virus vaccine, live 05/17/13 influenza virus vaccine, live 06/07/12 pneumococcal 13-valent conjugate vaccine 06/25/16 pneumococcal 23-polyvalent vaccine 08/03/05 Procedures Procedure Date [...]
--- OUTSIDE RECORDS SUMMARY | 2016-12-18 05:53 | XMS REPORT | Referral Summary ---
Author Author [facility] Organization [facility] Address Unknown Phone Unavailable Care Team Providers Care Container Coordinator Name Role Phone Daniel Hough Primary Care Physician [phone] Encounter Date(s): 07/16/15 - 07/16/15 [facility], [address] [place] [address] Discharge Diagnosis: Cough Discharge Diagnosis: Acute upper respiratory infection Discharge Disposition: 01-Home or Self Care Attending Physician: Krystyna Ramos PA-C Admitting Physician: Krystyna Ramos PA-C Vital Signs Most recent to 1 oldest [Reference Range]: Peripheral Pulse 78 bpm Rate [60-100 bpm] (07/16/15 2:33 PM) Blood Pressure 125/75 mmHg [90-140/60-90 mmHg] (07/16/15 2:33 PM) Problem List Condition Effective Dates Status [...] TIMES A DAY, # 120 tabs, eRx: [facility] #[id number], TAKE ONE TABLET BY MOUTH FOUR TIMES A DAY Start Date: 06/26/15 Status: Ordered furosemide 40 mg/5 mL oral solution mg mL, Oral, Daily, 0 Refill(s) Start Date: 07/16/15 Status: Ordered losartan 100 mg oral tablet 100 mg 1 tabs, Oral, Daily, # 90 tabs, 1 Refill(s), Pharmacy: [facility] # [id number], 1 tabs Oral Daily,x90 days Start Date: 07/15/15 Stop Date: 10/13/15 Status: Ordered losartan 100 mg oral tablet 100 mg 1 tabs, Oral, Daily, # 30 tabs, 0 Refill(s) Start Date: 07/16/15 Status: Ordered metoprolol tartrate 100 mg oral tablet mg tabs, Oral, BID, 0 Refill(s) Start Date: 07/16/15 Status: Ordered Metoprolol Tartrate 50 mg oral tablet See Instructions, TAKE TWO TABLETS BY MOUTH EVERY MORNING, # 180 tabs, 2 Refill( s), eRx: [facility] #[id number], TAKE TWO TABLETS BY MOUTH EVERY MORNING Start Date: 10/31/14 Status: Ordered mirtazapine 15 mg oral tablet See Instructions, TAKE ONE TABLET BY MOUTH AT BEDTIME, # 30 tabs, 1 Refill(s), eRx: [facility] #[id number], TAKE ONE TABLET BY MOUTH AT BEDTIME [...] # 120 unknown unit, 2 Refill(s), eRx: [facility] #[id number], TAKE ONE CAPSULE BY MOUTH THREE TIMES A DAY Start Date: 04/24/15 Status: Ordered PriLOSEC OTC mg, Oral, Daily, 0 Refill(s) Start Date: 07/16/15 Status: Ordered simvastatin 20 mg oral tablet 20 mg 1 tabs, Oral, Bedtime (once a day), # 30 tabs, 0 Refill(s) Start Date: 07/16/15 Status: Ordered Tessalon Perles 100 mg oral capsule 100 mg 1 caps, Oral, TID, X 7 days, # 21 caps, 0 Refill(s), Pharmacy: [facility] #[id number], 1 caps Oral TID,x7 days Start Date: 07/16/15 Stop Date: 07/23/15 Status: Ordered traZODone 100 mg oral tablet See Instructions, TAKE ONE TABLET BY MOUTH AT BEDTIME, # 30 tabs, 1 Refill(s), eRx: [facility] #[id number], TAKE ONE TABLET BY MOUTH AT BEDTIME Start Date: 07/15/15 Status: Ordered Zocor 20 mg oral tablet See Instructions, TAKE ONE TABLET BY MOUTH AT BEDTIME, # 30 tabs, 1 Refill(s), eRx: [facility] #[id number], TAKE ONE TABLET BY MOUTH AT BEDTIME [...] H/O toe surgery 1984 herniated disc repair 1975 Hysterectomy 1974 Appendectomy 1948 Tonsillectomy 1Normal -repeat in 10yrs 2chondroplasty, excision plica Social History Social History Type Response Smoking Status Never smoker; Type: Cigarettes Assessment and Plan Extracted from: Title: Ambulatory Patient Education Author: Krystyna Rmaos PA-C Date : 07/16/15 Allergy Cough, Adult A cough is a reflex that helps clear your throat and airways. It can help heal the body or may be a reaction to an irritated airway. A cough may only last 2 or 3 weeks (acute) or may last more than 8 weeks (chronic). CAUSES Acute cough: Viral or bacterial infections. Chronic cough: Infections. Allergies. Asthma. Post-nasal drip. Smoking. Heartburn or acid reflux. Some medicines. Chronic lung problems (COPD). Cancer. SYMPTOMS Cough. Fever. Chest pain. Increased breathing rate. High-pitched whistling sound when breathing (wheezing). Colored mucus that you cough up (sputum). TREATMENT A bacterial cough may be treated with antibiotic medicine. A viral cough must run its course and will not respond to antibiotics. Your caregiver may recommend other treatments if you have a chronic cough. HOME CARE INSTRUCTIONS Only take [id number] or prescription medicines for pain, discomfort, or fever as directed by your caregiver. Use cough suppressants only as directed by your caregiver. Use a cold steam vaporizer or humidifier in your bedroom or home to help loosen secretions. Sleep in a semi-upright position if your cough is worse at night. Rest as needed. Stop smoking if you smoke. SEEK IMMEDIATE MEDICAL CARE IF: You have pus in your sputum. Your cough starts to worsen. You cannot control your cough with suppressants and are losing sleep. You begin coughing up blood. You have difficulty breathing. You develop pain which is getting worse or is uncontrolled with medicine. You have a fever. MAKE SURE YOU: Understand these instructions. Will watch your condition. Will get help right away if you are not doing well or get worse. Document Released: 01/29/2012 Document Revised: 10/24/2012 Document Reviewed: Exit[employer] Patient Information 2015 [employer]. This information is not intended to replace advice given to you by your health care provider. Make sure you discuss any questions you have with your health care provider. ENT Upper Respiratory Infection, Adult An upper respiratory infection (URI) is also sometimes known as the common cold. The upper respiratory tract includes the nose, sinuses, throat, trachea, and bronchi. Bronchi are the airways leading to the lungs. Most people improve within 1 week, but symptoms can last up to 2 weeks. A residual cough may last even longer. CAUSES Many different viruses can infect the tissues lining the upper respiratory tract. The tissues become irritated and inflamed and often become very moist. Mucus production is also common. A cold is contagious. You can easily spread the virus to others by oral contact. This includes kissing, sharing a glass, coughing, or sneezing. Touching your mouth or nose and then touching a surface, which is then touched by another person, can also spread the virus. SYMPTOMS Symptoms typically develop 1 to 3 days after you come in contact with a cold virus. Symptoms vary from person to person. They may include: Runny nose. Sneezing. Nasal congestion. Sinus irritation. Sore throat. Loss of voice (laryngitis). Cough. Fatigue. Muscle aches. Loss of appetite. Headache. Low-grade fever. DIAGNOSIS You might diagnose your own cold based on familiar symptoms, since most people get a cold 2 to 3 times a year. Your caregiver can confirm this based on your exam. Most importantly, your caregiver can check that your symptoms are not due to another disease such as strep throat, sinusitis, pneumonia, asthma, or epiglottitis. Blood tests, throat tests, and X-rays are not necessary to diagnose a common cold, but they may sometimes be helpful in excluding other more serious diseases. Your caregiver will decide if any further tests are required. RISKS AND COMPLICATIONS You may be at risk for a more severe case of the common cold if you smoke cigarettes, have chronic heart disease (such as heart failure) or lung disease ( such as asthma), or if you have a weakened immune system. The very young and very old are also at risk for more serious infections. Bacterial sinusitis, middle ear infections, and bacterial pneumonia can complicate the common cold. The common cold can worsen asthma and chronic obstructive pulmonary disease ( COPD). Sometimes, these complications can require emergency medical care and may be life-threatening. PREVENTION The best way to protect against getting a cold is to practice good hygiene. Avoid oral or hand contact with people with cold symptoms. Wash your hands often if contact occurs. There is no clear evidence that vitamin C, vitamin E, echinacea, or exercise reduces the chance of developing a cold. However, it is always recommended to get plenty of rest and practice good nutrition. TREATMENT Treatment is directed at relieving symptoms. There is no cure. Antibiotics are not effective, because the infection is caused by a virus, not by bacteria. Treatment may include: Increased fluid intake. Sports drinks offer valuable electrolytes, sugars, and fluids. Breathing heated mist or steam (vaporizer or shower). Eating chicken soup or other clear broths, and maintaining good nutrition. Getting plenty of rest. Using gargles or lozenges for comfort. Controlling fevers with ibuprofen or acetaminophen as directed by your caregiver. Increasing usage of your inhaler if you have asthma. Zinc gel and zinc lozenges, taken in the first 24 hours of the common cold, can shorten the duration and lessen the severity of symptoms. Pain medicines may help with fever, muscle aches, and throat pain. A variety of non-prescription medicines are available to treat congestion and runny nose. Your caregiver can make recommendations and may suggest nasal or lung inhalers for other symptoms. HOME CARE INSTRUCTIONS Only take [id number] or prescription medicines for pain, discomfort, or fever as directed by your caregiver. Use a warm mist humidifier or inhale steam from a shower to increase air moisture. This may keep secretions moist and make it easier to breathe. Drink enough water and fluids to keep your urine clear or pale yellow. Rest as needed. Return to work when your temperature has returned to normal or as your caregiver advises. You may need to stay home longer to avoid infecting others. You can also use a face mask and careful hand washing to prevent spread of the virus. SEEK MEDICAL CARE IF: After the first few days, you feel you are getting worse rather than better. You need your caregiver's advice about medicines to control symptoms. You develop chills, worsening shortness of breath, or brown or red sputum. These may be signs of pneumonia. You develop yellow or brown nasal discharge or pain in the face, especially when you bend forward. These may be signs of sinusitis. You develop a fever, swollen neck glands, pain with swallowing, or white areas in the back of your throat. These may be signs of strep throat. SEEK IMMEDIATE MEDICAL CARE IF: You have a fever. You develop severe or persistent headache, ear pain, sinus pain, or chest pain. You develop wheezing, a prolonged cough, cough up blood, or have a change in your usual mucus (if you have chronic lung disease). You develop sore muscles or a stiff neck. Document Released: 01/26/2002 Document Revised: 10/24/2012 Document Reviewed: [facility] Patient Information 2015 [employer]. This information is not intended to replace advice given to you by your health care provider. Make sure you discuss any questions you have with your health care provider. No follow up information was provided. Extracted from: Title: Office Visit Note Author: Krystyna Ramos PA-C Date: 07/16/15 Assessment/Plan Acute upper respiratory infection Will try Tessalon perles for cough per pt request. She is to rest and push fluids. See below. Ordered: Office Visit Level 3 Est 30348 Cough, Cough O2 sats in the low90's.Could be normal for pt (I don't have any previous O2 sats to compare). Will check CXR. If pneumonia, will call in abx. She is to RTC by end of the week ifnot improving or worsening. Pt and daughter agree with plan. Ordered: Office Visit Level 3 Est 67118 XR Chest 2 Views Orders: benzonatate, 100 mg 1 caps, Oral, TID, X 7 days, # 21 caps, 0 Refill(s ), Pharmacy: [facility] #[id number], 1 caps Oral TID,x7 days
--- OUTSIDE RECORDS SUMMARY | 2016-12-18 05:53 | XMS REPORT | Continuity of Care Document ---
Author Author [facility] Address Unknown Phone Unavailable Care Team Providers Care Mobile Plant Operators Name Role Phone Saul Hough VANI Unavailable Payers Payer name Insurance type Covered republican ID Authorization(s) Unknown Problems Condition Effective Dates (start - stop) Clinical Status Follow-up examination, following other surgery - *Acute Sinusitis - *Acute Subcutaneous nodules - *Acute Influenza Vaccine - Gastroenteritis - *Acute Fatigue - *Acute Dermatophytosis of nail - *Chronic Pain in limb - *Chronic H ZOSTER NERV SYST NOS - MEASLES UNCOMPLICATED - MUMPS COMPLICATION NOS - HYPOTHYROIDISM NOS - PURE HYPERCHOLESTEROLEM - ANXIETY STATE NOS - HYPERTENSION NOS - COR ATH UNSP VSL NTV/GFT - CHR KIDNEY DIS STAGE III - Localized superficial swelling, mass, or lump - *Chronic Lipoma - *Chronic Hemorrhage of rectum and anus - *Resolved Abdominal pain, epigastric - *Resolved Swelling, mass, or lump in chest - *Chronic Dermatophytosis of nail - *Chronic Pain in limb - *Chronic GI bleed - *Acute Heart burn - *Acute Hematochezia - *Acute Hemoptysis - *Acute Abdominal pain, epigastric - *Acute Fibroadenoma - Asymptomatic Sebaceous cyst - Asymptomatic Abdominal pain, generalized - *Acute Family History Family Member Diagnosis Age At Onset Status Father (Unknown) CAD Yes Father (Unknown) Hypertension Yes Brother (Unknown) CAD Yes Father (Unknown) CVA (Stroke) Yes Brother (Unknown) Hypertension Yes Mother (Alive) CVA (Stroke), HTN, CAD Yes Social History Social History Element Description Quantity Unknown Allergies, Adverse Reactions, Alerts Substance Reaction Severity Status CODEINE Unknown MEPERIDINE HCL Unknown PRESERVATIVE FREE Unknown SULFANILAMIDE Unknown HYDROCODONE Unknown IRON Unknown ACETAMINOPHEN Unknown HYDROCODONE BIT Unknown Medications Medication Instructions Dosage Effective Dates (start - stop) Status two hs - Active Mapap (acetaminophen) 500 mg capsule prn - Active biotin 2,500 mcg capsule 1000mcg daily - Active Zocor 20 mg tablet Take 1 tablet by mouth at bedtime. - Active potassium chloride ER 10 mEq capsule,extended release 1 CAP 3 TIMES A DAY - Active furosemide 80 mg tablet TAKE 1/2 TABLET BY MOUTH TWICE DAILY - Active albuterol sulfate 2.5 mg/3 mL (0.083 %) Neb Solution inhale 3 milliliter ( 2.5MG) by nebulization route 3 times every day 2.5 MG - Active Norvasc 5 mg tablet take 1 Tablet by Oral route every day 0 - Active losartan 100 mg tablet Take 1 tablet by mouth every day. - Active metoprolol tartrate 50 mg tablet TAKES 2 TABS IN AM - Active trazodone 100 mg tablet Take 0.5 to 1 tablets by mouth every day as needed. - Active Immunizations Vaccine Date Status Comments Flu (split) (3 yrs or older) completed Flu (split) (3 yrs or older) completed Results Test Name Date and Time Measure Units Reference Range Abnormal Flag Comments Unknown Vital Signs Date / Time: Height Weight Pulse Rate Blood Pressure Temperature /12:40:00 63.00 in 118.00 lbs 98.1 F Procedures Procedure Date Unknown Encounters Encounter Location Date Patient Visit [facility] New [facility] Patient Visit [facility] Patient Visit [facility] Patient Visit [facility] Patient Visit [facility] [place] Patient Visit [facility] Patient Visit [facility] Patient Visit [facility] Patient Visit [facility] Patient Visit [facility] Patient Visit [facility] Patient Visit [facility] Patient Visit [facility] Patient Visit [facility] New Pod Patient Visit [facility] Patient Visit [facility] Patient Visit [facility] Care Patient Visit [facility] Advance Directives Directive Effective Date Unknown
--- OUTSIDE RECORDS SUMMARY | 2016-12-18 05:53 | XMS REPORT | Referral Summary ---
Author Author [facility], Family Medicine Organization [facility] Address Unknown Phone Unavailable Care Team Providers Care Science Faculty Member Name Role Phone Daniel Hough Primary Care Physician [phone] Encounter VC Date(s): 08/28/15 - 08/28/15 [facility], [address] [place] [id number] Discharge Disposition: 01-Home or Self Care Attending Physician: Saul Hough MD Admitting Physician: Saul Hough MD Vital Signs Most recent to 1 oldest [Reference Range]: Peripheral Pulse 70 bpm Rate [60-100 bpm] (08/28/15 10:19 AM) Blood Pressure 114/76 mmHg [90-140/60-90 mmHg] (08/28/15 10:19 AM) SpO2 95 % (08/28/15 10:19 AM) Problem List Condition Effective Dates Status [...] DAY, # 120 tabs, 2 Refill(s), eRx: [facility] #[id number], TAKE ONE TABLET BY MOUTH FOUR TIMES A DAY Start Date: 07/24/15 Status: Ordered furosemide 40 mg/5 mL oral solution 40 mg, Oral, BID, 0 Refill(s) Start Date: 07/16/15 Status: Ordered losartan 100 mg oral tablet 100 mg 1 tabs, Oral, Daily, # 90 tabs, 1 Refill(s), Pharmacy: [facility] # [id number], 1 tabs Oral Daily,x90 days Start Date: 07/15/15 Stop Date: 10/13/15 Status: Ordered Metoprolol Tartrate 50 mg oral tablet See Instructions, TAKE TWO TABLETS BY MOUTH EVERY MORNING, # 180 tabs, 1 Refill( s), eRx: [facility] #[id number], TAKE TWO TABLETS BY MOUTH EVERY MORNING Start Date: 07/31/15 Status: Ordered mirtazapine 15 mg oral tablet See Instructions, TAKE ONE TABLET BY MOUTH AT BEDTIME, # 30 tabs, eRx: [facility] #[id number], TAKE ONE TABLET BY MOUTH AT BEDTIME Start Date: 08/21/15 Status: Ordered Ocuvite tabs, Oral, Daily, 0 Refill(s) Start Date: 07/16/15 Status: Ordered omeprazole 20 mg, Oral, Daily, 0 Refill(s) Start Date: 03/11/15 Status: Ordered potassium chloride 10 mEq oral capsule, extended release See Instructions, TAKE ONE CAPSULE BY MOUTH THREE TIMES A DAY, # 120 unknown unit, 1 Refill(s), eRx: [facility] #[id number], TAKE ONE CAPSULE BY MOUTH THREE TIMES A DAY Start Date: 08/21/15 Status: Ordered traZODone 100 mg oral tablet See Instructions, TAKE ONE TABLET BY MOUTH AT BEDTIME, # 30 tabs, 1 Refill(s), eRx: [facility] #[id number], TAKE ONE TABLET BY MOUTH AT BEDTIME Start Date: 07/15/15 Status: Ordered Zocor 20 mg oral tablet See Instructions, TAKE ONE TABLET BY MOUTH AT BEDTIME, # 30 tabs, 1 Refill(s), eRx: [facility] #[id number], TAKE ONE TABLET BY MOUTH AT BEDTIME Start Date: 07/10/15 Status: Ordered Results Hematology Most recent to 1 oldest [Reference Range]: WBC [4.8-10.8 4.3 10*3/uL 10*3/uL] *LOW* (08/28/15 11:30 AM) RBC [4.00-5.20] 4.49 (08/28/15 11:30 AM) Hgb [12.0-16.0 13.2 gm/dL gm/dL] (08/28/15 11:30 AM) Hct [37.0-47.0 %] 40.3 % (08/28/15 11:30 AM) MCV [82.0-99.0 fL] 89.8 fL (08/28/15 11:30 AM) MCH [27.0-32.0 pg] 29.4 pg (08/28/15 11:30 AM) MCHC [32.0-36.0 32.8 gm/dL gm/dL] (08/28/15 11:30 AM) RDW [11.5-14.5 %] 12.8 % (08/28/15 11:30 AM) Platelet [150-400 167 10*3/uL 10*3/uL] (08/28/15 11:30 AM) MPV [8.8-14.8 fL] 10.4 fL (08/28/15 11:30 AM) Immature 0.0 % Granulocytes (08/28/15 11:30 AM) [0.0-1.0 %] Neutrophils [51-75 65 % %] (08/28/15 11:30 AM) Lymphocytes [20-46 23 % %] (08/28/15 11:30 AM) Monocytes [4-11 %] 9 % (08/28/15 11:30 AM) Eosinophils [0-4 %] 2 % (08/28/15 11:30 AM) Basophils [0-2 %] 0 % (08/28/15 11:30 AM) Neutro Absolute 2.78 10*3 [1.90-7.00 10*3] (08/28/15 11:30 AM) Lymph Absolute 0.99 10*3 [0.80-3.30 10*3] (08/28/15 11:30 AM) Will Absolute 0.39 10*3 [0.30-1.00 10*3] (08/28/15 11:30 AM) Eos Absolute 0.10 10*3 [0.00-0.50 10*3] (08/28/15 11:30 AM) Baso Absolute 0.01 10*3 [0.00-0.20 10*3] (08/28/15 11:30 AM) Chemistry Most recent to 1 oldest [Reference Range]: Sodium Lvl [135-144 142 mEq/L mEq/L] (08/28/15 11:30 AM) Potassium Lvl 3.9 mEq/L [3.5-5.2 mEq/L] (08/28/15 11:30 AM) Chloride [99-111 105 mEq/L mEq/L] (08/28/15 11:30 AM) CO2 [22-31 mEq/L] 26 mEq/L (08/28/15 11:30 AM) AGAP [3-20] 11 (08/28/15 11:30 AM) BUN [10-20 mg/dL] 15 mg/dL (08/28/15 11:30 AM) Glucose Lvl [70-99 92 mg/dL mg/dL] (08/28/15 11:30 AM) Creatinine Lvl 0.95 mg/dL [0.57-1.11 mg/dL] (08/28/15 11:30 AM) eGFR [>60 mL/min] 56 mL/min 1 *ABN* (08/28/15 11:30 AM) Calcium Lvl 9.0 mg/dL [8.9-10.5 mg/dL] (08/28/15 11:30 AM) Albumin Lvl [3.4-4.8 4.3 gm/dL gm/dL] (08/28/15 11:30 AM) Total Protein 6.6 gm/dL [6.2-8.1 gm/dL] (08/28/15 11:30 AM) Globulin [1.8-4.0 2.3 gm/dL gm/dL] (08/28/15 11:30 AM) ALT [0-55 U/L] 15 U/L (08/28/15 11:30 AM) AST [5-34 U/L] 19 U/L (08/28/15 11:30 AM) Alk Phos [40-150 100 U/L U/L] (08/28/15 11:30 AM) Bili Total [0.2-1.2 0.6 mg/dL mg/dL] (08/28/15 11:30 AM) 1Result Comment: Multiply eGFR results by 1.21 for race. Immunizations Vaccine Date Refusal Reason influenza virus [...] Author: Saul Hough MD Date: Family Medicine Food Choices for Gastroesophageal Reflux Disease When you have gastroesophageal reflux disease (GERD), the foods you eat and your eating habits are very important. Choosing the right foods can help ease the discomfort of GERD. WHAT GENERAL GUIDELINES DO I NEED TO FOLLOW? Choose fruits, vegetables, whole grains, low-fat dairy products, and low- fat meat, fish, and poultry. Limit fats such as oils, salad dressings, butter, nuts, and avocado. Keep a food diary to identify foods that cause symptoms. Avoid foods that cause reflux. These may be different for different people. Eat frequent small meals instead of three large meals each day. Eat your meals slowly, in a relaxed setting. Limit fried foods. Cook foods using methods other than frying. Avoid drinking alcohol. Avoid drinking large amounts of liquids with your meals. Avoid bending over or lying down until 23 hours after eating. WHAT FOODS ARE NOT RECOMMENDED? The following are some foods and drinks that may worsen your symptoms: Vegetables Tomatoes. Tomato juice. Tomato and spaghetti sauce. [place] peppers. Onion and garlic. Horseradish. Fruits Oranges, grapefruit, and lemon (fruit and juice). Meats High-fat meats, fish, and poultry. This includes hot dogs, ribs, ham, sausage, salami, and lindsey. Dairy Whole milk and chocolate milk. Sour cream. Cream. Butter. Ice cream. Cream cheese. Beverages Coffee and tea, with or without caffeine. Carbonated beverages or energy drinks. Condiments Hot sauce. Barbecue sauce. Sweets/Desserts Chocolate and cocoa. Donuts. Peppermint and spearmint. Fats and Oils High-fat foods, including [place] fries and potato chips. Other Vinegar. Strong spices, such as black pepper, white pepper, red pepper, cayenne, noonan powder, cloves, milan, and chili powder. The items listed above may not be a complete list of foods and beverages to avoid. Contact your dietitian for more information. Document Released: 08/02/2006 Document Revised: 08/07/2014 Document Reviewed: [facility] Patient Information 2015 [employer] [facility]. This information is not intended to replace advice given to you by your health care provider. Make sure you discuss any questions you have with your health care provider. Home Health Care Chronic Kidney Disease Chronic kidney disease occurs when the kidneys are damaged over a long period. The kidneys are two organs that lie on either side of the spine between the middle of the back and the front of the abdomen. The kidneys: Remove wastes and extra water from the blood. Produce important hormones. These help keep bones strong, regulate blood pressure, and help create red blood cells. Balance the fluids and chemicals in the blood and tissues. A small amount of kidney damage may not cause problems, but a large amount of damage may make it difficult or impossible for the kidneys to work the way they should. If steps are not taken to slow down the kidney damage or stop it from getting worse, the kidneys may stop working permanently. Most of the time, chronic kidney disease does not go away. However, it can often be controlled, and those with the disease can usually live normal lives. CAUSES The most common causes of chronic kidney disease are diabetes and high blood pressure (hypertension). Chronic kidney disease may also be caused by: Diseases that cause the kidneys' filters to become inflamed. Diseases that affect the immune system. Genetic diseases. Medicines that damage the kidneys, such as anti-inflammatory medicines. Poisoning or exposure to toxic substances. A reoccurring kidney or urinary infection. A problem with urine flow. This may be caused by: Cancer. Kidney stones. An enlarged prostate in males. SIGNS AND SYMPTOMS Because the kidney damage in chronic kidney disease occurs slowly, symptoms develop slowly and may not be obvious until the kidney damage becomes severe. A person may have a kidney disease for years without showing any symptoms. Symptoms can include: Swelling (edema) of the legs, ankles, or feet. Tiredness (lethargy). Nausea or vomiting. Confusion. Problems with urination, such as: Decreased urine production. Frequent urination, especially at night. Frequent accidents in children who are potty trained. Muscle twitches and cramps. Shortness of breath. Weakness. Persistent itchiness. Loss of appetite. Metallic taste in the mouth. Trouble sleeping. Slowed development in children. Short stature in children. DIAGNOSIS Chronic kidney disease may be detected and diagnosed by tests, including blood, urine, imaging, or kidney biopsy tests. TREATMENT Most chronic kidney diseases cannot be cured. Treatment usually involves relieving symptoms and preventing or slowing the progression of the disease. Treatment may include: A special diet. You may need to avoid alcohol and foods thatare salty and high in potassium. Medicines. These may: Lower blood pressure. Relieve anemia. Relieve swelling. Protect the bones. HOME CARE INSTRUCTIONS Follow your prescribed diet. Take medicines only as directed by your health care provider. Do not take any new medicines (prescription, [id number], or nutritional supplements) unless approved by your health care provider. Many medicines can worsen your kidney damage or need to have the dose adjusted. Quit smoking if you smoke. Talk to your health care provider about a smoking cessation program. Keep all follow-up visits as directed by your health care provider. SEEK IMMEDIATE MEDICAL CARE IF: Your symptoms get worse or you develop new symptoms. You develop symptoms of end-stage kidney disease. These include: Headaches. Abnormally dark or light skin. Numbness in the hands or feet. Easy bruising. Frequent hiccups. Menstruation stops. You have a fever. You have decreased urine production. You havepain or bleeding when urinating. MAKE SURE YOU: Understand these instructions. Will watch your condition. Will get help right away if you are not doing well or get worse. FOR MORE INFORMATION [employer]: www.aakp.org National Kidney Foundation: www.kidney.org [employer]: www.akfinc.org [facility]: www.lifeoptions.org and www.kidneyschool.org Document Released: 05/11/2009 Document Revised: 12/17/2014 Document Reviewed: [employer] Patient Information 2015 [employer]. This information is not intended to replace advice given to you by your health care provider. Make sure you discuss any questions you have with your health care provider. No follow up information was provided. Extracted from: Title: Office Visit Note Author: Saul Hough MD Date: 08/28/15 Assessment/Plan Anxiety Continue with the current medications for all the problems. Chronic insomnia Ordered: Office Visit Level 5 Est 82901 CKD (chronic kidney disease), stage III Continue the follow up with Dr. Comer or Maureen. Coronary angioplasty status stable. DJD (degenerative joint disease) Again I find the patient stable for surgery. Awaiting the results of the lab and x-ray. Ordered: Office Visit Level 5 Est 27564 Encounter for other preprocedural examination, Pre-operative exam Ordered: CBC w/ Differential Comprehensive Metabolic Panel Office Visit Level 5 Est 29307 XR Chest 2 Views GERD (gastroesophageal reflux disease) Hypercholesterolemia Hypertension Ordered: Office Visit Level 5 Est 19929 Peptic ulcer disease
--- OUTSIDE RECORDS SUMMARY | 2016-12-18 05:53 | XMS REPORT | Referral Summary ---
Author Organization Unknown Address Unknown Phone Unavailable Care Team Providers Care Concrete Engineer Name Role Phone Daniel Hough Primary Care Physician [phone] Encounter [facility] Date(s): 08/28/14 - 08/28/14 [facility], [place] [address] [place] [address] JENNIFER [place] [id number] Discharge Diagnosis: Hyperlipidemia Discharge Diagnosis: Acute GI bleeding Discharge Diagnosis: Hypertension Discharge Diagnosis: CKD (chronic kidney disease), stage III Discharge Diagnosis: Anxiety Discharge Diagnosis: Malignant lymphoma Discharge Disposition: Home or Self Care Attending Physician: Saul Hough MD Admitting Physician: Saul Hough MD Vital Signs Most recent to 1 oldest [Reference Range]: Blood Pressure 146/78 mmHg [90-140/60-90 mmHg] *HI* (08/28/14 9:04 AM) Problem List Condition Effective Dates Status [...] Daily, # 30 caps, 0 Refill(s), Pharmacy: [facility] #[id number] , 1 caps Oral Daily Start Date: 05/21/14 Status: Ordered lansoprazole 15 mg oral tablet, disintegrating 1 tabs, Oral, Daily, # 30 tabs, 0 Refill(s) Start Date: 02/15/14 Status: Ordered losartan 100 mg oral tablet See Instructions, TAKE ONE TABLET BY MOUTH EVERY DAY, # 30 tabs, 1 Refill(s), eRx: [facility] #[id number], TAKE ONE TABLET BY MOUTH EVERY DAY Special Instructions: TAKE ONE TABLET BY MOUTH EVERY DAY Start Date: 07/04/14 Status: Ordered Metoprolol Tartrate 50 mg oral tablet See Instructions, TAKE TWO TABLETS BY MOUTH EVERY MORNING, # 180 tabs, eRx: [facility] #[id number], TAKE TWO TABLETS BY MOUTH EVERY MORNING Special Instructions: TAKE TWO TABLETS BY MOUTH EVERY MORNING Start Date: 08/01/14 Status: Ordered mirtazapine 15 mg oral tablet See Instructions, TAKE ONE TABLET BY MOUTH AT BEDTIME, # 30 tabs, 1 Refill(s), eRx: [facility] #[id number], TAKE ONE TABLET BY MOUTH AT BEDTIME [...] # 120 unknown unit, 2 Refill(s), eRx: [facility] #[id number], TAKE ONE CAPSULE BY MOUTH THREE TIMES A DAY Special Instructions: TAKE ONE CAPSULE BY MOUTH THREE TIMES A DAY Start Date: 05/16/14 Status: Ordered traZODone 50 mg oral tablet See Instructions, TAKE ONE TABLET BY MOUTH EVERY NIGHT AT BEDTIME AFTER MEALS, # 30 tabs, eRx: [facility] #[id number], TAKE ONE TABLET BY MOUTH EVERY NIGHT AT BEDTIME AFTER MEALS Special Instructions: TAKE ONE TABLET BY MOUTH EVERY NIGHT AT BEDTIME AFTER MEALS Start Date: 08/01/14 Status: Ordered Zocor 20 mg oral tablet See Instructions, TAKE ONE TABLET BY MOUTH AT BEDTIME, # 30 tabs, 1 Refill(s), eRx: [facility] #[id number], TAKE ONE TABLET BY MOUTH AT BEDTIME Special Instructions: TAKE ONE TABLET BY MOUTH AT BEDTIME Start Date: 08/15/14 Status: Ordered Zocor 20 mg oral tablet See Instructions, TAKE ONE TABLET BY MOUTH AT BEDTIME, # 30 tabs, 2 Refill(s), eRx: [facility] #[id number], TAKE ONE TABLET BY MOUTH AT BEDTIME [...] Author: Saul Hough MD Date: Family Medicine Bloody Stools Bloody stools often mean that there is a problem in the digestive tract. Your caregiver may use the term "melena" to describe black, tarry, and bad smelling stools or "hematochezia" to describe red or maroon-colored stools. Blood seen in the stool can be caused by bleeding anywhere along the intestinal tract. A black stool usually means that blood is coming from the upper part of the gastrointestinal tract (esophagus, stomach, or small bowel). Passing maroon- colored stools or bright red blood usually means that blood is coming from lower down in the large bowel or the rectum. However, sometimes massive bleeding in the stomach or small intestine can cause bright red bloody stools. Consuming black licorice, lead, iron pills, medicines containing bismuth subsalicylate, or blueberries can also cause black stools. Your caregiver can test black stools to see if blood is present. It is important that the cause of the bleeding be found. Treatment can then be started, and the problem can be corrected. Rectal bleeding may not be serious, but you should not assume everything is okay until you know the cause.It is very important to follow up with your caregiver or a specialist in gastrointestinal problems. CAUSES Blood in the stools can come from various underlying causes.Often, the cause is not found during your first visit. Testing is often needed to discover the cause of bleeding in the gastrointestinal tract. Causes range from simple to serious or even life-threatening.Possible causes include: Hemorrhoids.These are veins that are full of blood (engorged ) in the rectum. They cause pain, inflammation, and may bleed. Anal fissures.These are areas of painful tearing which may bleed. They are often caused by passing hard stool. Diverticulosis.These are pouches that form on the colon over time, with age, and may bleed significantly. Diverticulitis.This is inflammation in areas with diverticulosis. It can cause pain, fever, and bloody stools, although bleeding is rare. Proctitis and colitis. These are inflamed areas of the rectum or colon. They may cause pain, fever, and bloody stools. Polyps and cancer. Colon cancer is a leading cause of preventable cancer .It often starts out as precancerous polyps that can be removed during a colonoscopy, preventing progression into cancer. Sometimes, polyps and cancer may cause rectal bleeding. Gastritis and ulcers.Bleeding from the upper gastrointestinal tract ( near the stomach) may travel through the intestines and produce black, sometimes tarry, often bad smelling stools. In certain cases, if the bleeding is fast enough, the stools may not be black, but red and the condition may be life-threatening. SYMPTOMS You may have stools that are bright red and bloody, that are normal color with blood on them, or that are dark black and tarry. In some cases, you may only have blood in the toilet bowl. Any of these cases need medical care. You may also have: Pain at the anus or anywhere in the rectum. Lightheadedness or feeling faint. Extreme weakness. Nausea or vomiting. Fever. DIAGNOSIS Your caregiver may use the following methods to find the cause of your bleeding : Taking a medical history. Age is important. Older people tend to develop polyps and cancer more often. If there is anal pain and a hard, large stool associated with bleeding, a tear of the anus may be the cause. If blood drips into the toilet after a bowel movement, bleeding hemorrhoids may be the problem. The color and frequency of the bleeding are additional considerations. In most cases, the medical history provides clues, but seldom the final answer. A visual and finger (digital ) exam. Your caregiver will inspect the anal area, looking for tears and hemorrhoids. A finger exam can provide information when there is tenderness or a growth inside. In men, the prostate is also examined. Endoscopy. Several types of small, long scopes (endoscopes ) are used to view the colon. In the office, your caregiver may use a rigid, or more commonly, a flexible viewing sigmoidoscope. This exam is called flexible sigmoidoscopy. It is performed in 5 to 10 minutes. A more thorough exam is accomplished with a colonoscope. It allows your caregiver to view the entire 5 to 6 foot long colon. Medicine to help you relax (sedative ) is usually given for this exam. Frequently, a bleeding lesion may be present beyond the reach of the sigmoidoscope. So, a colonoscopy may be the best exam to start with. Both exams are usually done on an outpatient basis. This means the patient does not stay overnight in the hospital or surgery center. An upper endoscopy may be needed to examine your stomach. Sedation is used and a flexible endoscope is put in your mouth, down to your stomach. A barium enema X-ray. This is an X-ray exam. It uses liquid barium inserted by enema into the rectum. This test alone may not identify an actual bleeding point. X-rays highlight abnormal shadows, such as those made by lumps ( tumors ), diverticuli, or colitis. TREATMENT Treatment depends on the cause of your bleeding. For bleeding from the stomach or colon, the caregiver doing your endoscopy or colonoscopy may be able to stop the bleeding as part of the procedure. Inflammation or infection of the colon can be treated with medicines. Many rectal problems can be treated with creams, suppositories, or warm baths. Surgery is sometimes needed. Blood transfusions are sometimes needed if you have lost a lot of blood. For any bleeding problem, let your caregiver know if you take aspirin or other blood thinners regularly. HOME CARE INSTRUCTIONS Take any medicines exactly as prescribed. Keep your stools soft by eating a diet high in fiber. Prunes (1 to 3 a day ) work well for many people. Drink enough water and fluids to keep your urine clear or pale yellow. Take sitz baths if advised. A sitz bath is when you sit in a bathtub with warm water for 10 to 15 minutes to soak, soothe, and cleanse the rectal area. If enemas or suppositories are advised, be sure you know how to use them. Tell your caregiver if you have problems with this. Monitor your bowel movements to look for signs of improvement or worsening. SEEK MEDICAL CARE IF: You do not improve in the time expected. Your condition worsens after initial improvement. You develop any new symptoms. SEEK IMMEDIATE MEDICAL CARE IF: You develop severe or prolonged rectal bleeding. You vomit blood. You feel weak or faint. You have a fever. MAKE SURE YOU: Understand these instructions. Will watch your condition. Will get help right away if you are not doing well or get worse. Document Released: 07/23/2003 Document Revised: 10/24/2012 Document Reviewed: [facility] Patient Information 2014 [employer]. DASH Diet The DASH diet stands for "Dietary Approaches to Stop Hypertension." It is a healthy eating plan that has been shown to reduce high blood pressure ( hypertension ) in as little as 14 days, while also possibly providing other significant health benefits. These other health benefits include reducing the risk of breast cancer after menopause and reducing the risk of type 2 diabetes, heart disease, colon cancer, and stroke. Health benefits also include weight loss and slowing kidney failure in patients with chronic kidney disease. DIET GUIDELINES Limit salt (sodium ). Your diet should contain less than 1500 mg of sodium daily. Limit refined or processed carbohydrates. Your diet should include mostly whole grains. Desserts and added sugars should be used sparingly. Include small amounts of heart-healthy fats. These types of fats include nuts, oils, and tub margarine. Limit saturated and trans fats. These fats have been shown to be harmful in the body. CHOOSING FOODS The following food groups are based on a 2000 calorie diet. See your Registered Dietitian for individual calorie needs. Grains and Grain Products (6 to 8 servings daily) Eat More Often: Whole-wheat bread, brown rice, whole-grain or wheat pasta, quinoa, popcorn without added fat or salt (air popped). Eat Less Often: White bread, white pasta, white rice, cornbread. Vegetables (4 to 5 servings daily) Eat More Often: Fresh, frozen, and canned vegetables. Vegetables may be raw , steamed, roasted, or grilled with a minimal amount of fat. Eat Less Often/Avoid: Creamed or fried vegetables. Vegetables in a cheese sauce. Fruit (4 to 5 servings daily) Eat More Often: All fresh, canned (in natural juice), or frozen fruits. Dried fruits without added sugar. One hundred percent fruit juice ( cup [237 mL] daily). Eat Less Often: Dried fruits with added sugar. Canned fruit in light or heavy syrup. Lean Meats, Fish, and Poultry (2 servings or less daily. One serving is 3 to 4 oz [85-114 g]). Eat More Often: Ninety percent or leaner ground beef, tenderloin, sirloin. Round cuts of beef, chicken breast, turkey breast. All fish. [place], bake, or broil your meat. Nothing should be fried. Eat Less Often/Avoid: Fatty cuts of meat, turkey, or chicken leg, thigh, or wing. Fried cuts of meat or fish. Dairy (2 to 3 servings) Eat More Often: Low-fat or fat-free milk, low-fat plain or light yogurt, reduced-fat or part-skim cheese. Eat Less Often/Avoid: Milk (whole, 2%).Whole milk yogurt. Full-fat cheeses. Nuts, Seeds, and Legumes (4 to 5 servings per week) Eat More Often: All without added salt. Eat Less Often/Avoid: Salted nuts and seeds, canned beans with added salt. Fats and Sweets (limited) Eat More Often: Vegetable oils, tub margarines without trans fats, sugar- free gelatin. Mayonnaise and salad dressings. Eat Less Often/Avoid: Coconut oils, palm oils, butter, stick margarine, cream, half and half, cookies, candy, pie. FOR MORE INFORMATION The Dash Diet Eating Plan: www.dashdiet.org Document Released: 07/21/2012 Document Revised: 10/24/2012 Document Reviewed: [employer] Patient Information 2014 [facility]. No follow up information was provided. Extracted from: Title: Office Visit Note Author: Saul Hough MD Date: 08/28/14 Assessment/Plan Acute GI bleeding continue with the current medications. Ordered: Office Visit Level 4 Est 88114 Anxiety Ordered: Office Visit Level 4 Est 21990 CKD (chronic kidney disease), stage III Ordered: Office Visit Level 4 Est 07695 Hyperlipidemia Ordered: Office Visit Level 4 Est 05931 Hypertension Ordered: Office Visit Level 4 Est 43720 Malignant lymphoma Ordered: Office Visit Level 4 Est 07787
--- OUTSIDE RECORDS SUMMARY | 2016-12-18 05:53 | XMS REPORT | Continuity of Care Document ---
Author Author Saul Hough MD Organization [facility] Address [address] [place] [address] Phone Care Team Providers Care Toe Pounder Name Role Phone Saul Hough PP Unavailable Payers Payer name Insurance type Covered republican ID Authorization(s) Unknown Problems Condition Effective Dates (start - stop) Clinical Status Chalazion of left eye - *Acute Failure to thrive - *Chronic Non Hodgkin's lymphoma - *Symptomatic Depressed - *Chronic Sinusitis - *Acute Cough - Intermittent Postnasal drip - *Acute Chronic kidney disease, Stage III (moderate) - *Chronic Anxiety - *Chronic Other malignant lymphomas, unspecified site - *Chronic Hypertension, Unspecified - *Stable Hypothyroidism - *Stable OA (osteoarthritis) of finger - *Chronic Gastroenteritis - *Acute Fatigue - *Acute Dermatophytosis [...] mass, or lump in chest - *Chronic Subcutaneous nodules - *Acute Influenza Vaccine - Urinary incontinence - *Acute Dermatophytosis of nail - *Chronic Pain in limb - *Chronic Follow-up examination, following other surgery - *Acute GI bleed - *Acute Heart burn - *Acute Hematochezia - *Acute Hemoptysis - *Acute Abdominal pain, epigastric - *Acute Fibroadenoma - Asymptomatic Sebaceous cyst - Asymptomatic Abdominal pain, generalized - *Acute Pain in limb - *Chronic Dermatophytosis of nail - *Chronic Family History Family Member Diagnosis Age At [...] HYDROCODONE Unknown IRON Unknown ACETAMINOPHEN Unknown HYDROCODONE BITARTRATE Unknown Medications Medication Instructions Dosage Effective Dates (start - stop) Status albuterol sulfate 2.5 mg/3 mL (0.083 %) solution for nebulization inhale 3 milliliter (2.5MG) by nebulization route 3 times every day 2.5 MG 2013 - No Longer Active Mapap (acetaminophen) 500 mg capsule prn - Active Zocor 20 mg tablet Take 1 tablet by mouth at bedtime. - Active furosemide 80 mg tablet TAKE 1/2 TABLET BY MOUTH TWICE DAILY - Active Norvasc 5 mg tablet take 1 Tablet by Oral route every day 0 - Active metoprolol tartrate 50 mg tablet TAKES 2 TABS IN AM - Active oxybutynin chloride 5 mg tablet take 1 by Oral route 2- 3 times every day 0 - Active potassium chloride ER 10 mEq capsule,extended release 1 CAP 3 TIMES A DAY - Active Tessalon Perles 100 mg capsule take 1 capsule (100MG) by oral route 3 times every day 100 MG - Active losartan 100 mg tablet Take 1 tablet by mouth every day. - Active allopurinol 300 mg tablet take 1 tablet (300MG) by oral route every day 300 MG - Active lansoprazole 15 mg delayed release,disintegrating tablet take 1 tablet (15MG) by oral route every day and place on top of the tongue where it will dissolve , then swallow 15 MG - Active mirtazapine 15 mg tablet take 1 tablet (15MG) by oral route every day before bedtime 15 MG - Active Immunizations Vaccine Date Status Comments Flu (split) (3 yrs or older) completed Flu (split) (3 yrs or older) completed Results Test Name Date and Time Measure Units Reference Range Abnormal Flag Comments Unknown Vital Signs Date / Time: Height Weight Pulse Rate Blood Pressure Temperature /08:45:00 63.00 in 117.00 lbs 90/52 mm[Hg] 98.6 F Procedures Procedure Date Unknown Encounters Encounter Location Date Patient Visit [facility] Patient Visit [facility] Patient Visit [facility] Patient Visit [facility] Patient Visit [facility] Patient Visit [facility] Patient Visit [facility] Patient Visit [facility] Patient Visit [facility] Patient [facility] Patient [facility] Patient [facility] Patient [facility] Pod Patient Visit Con[facility] Patient Visit [facility] Patient [facility] Patient Visit [facility] Surg Patient Visit [facility] Patient [facility] Surg Patient Visit [facility] New FM Patient Visit [facility] New Pod Patient Visit [facility] New Surg Patient Visit [facility] Patient Visit [facility] Patient Visit [facility] Care Patient Visit [facility] New Pod Patient Visit [facility] Advance Directives Directive Effective Date Unknown
--- OUTSIDE RECORDS SUMMARY | 2016-12-18 05:54 | XMS REPORT | Continuity of Care Document ---
Author Author [facility] Organization [facility] Address Unknown Phone Unavailable Support Name Relationship Address Phone MEGHANN VELASCO MD Caregiver [address] [place] [phone] NABIL ZAYAS MD Caregiver [address] [place] [phone] KANCHAN TAN DPOA Next Of Kin [address] [place] [address] Insurance Providers Payer Name Policy Number Subscriber Name Relationship Medicare [id number] Marco Martin 20 Self [employer] [id number] Marco Martin 20 Self Advance Directives Directive Response Recorded Date/Time Advanced Directives Type None 07/18/14 5:05pm Problems Medical Problems Problem Onset Date Status Fever Unknown Active GI bleeding Unknown Active Abdominal pain Unknown Active Medications Medication Dose Route Sig Days/Qty Instructions Order Date Discontinued Date Status Furosemide 40 Mg PO DAILY 06/20/08 Active Levothyroxine Sodium 50 Mcg PO DAILY 06/20/08 05/21/11 Discontinued Metoprolol Succinate 100 Mg PO DAILY 06/20/08 05/21/11 Discontinued Olmesartan/Hydrochlorothiazide 1 Tab PO DAILY 06/20/08 04/09/12 Discontinued Rosuvastatin Calcium 40 Mg PO DAILY 06/20/08 05/22/11 Discontinued Trazodone Hcl 0.5-1 Tab PO BEDTIME 06/19/08 Active Acetaminophen 500 Mg PO NEEDED 06/20/08 Active Calcium Carbonate/Vitamin D3 1 Tab PO DAILY 06/19/08 07/18/14 Discontinued Vitamin J80-[id number] Factor 1 Cap PO DAILY 06/19/08 04/09/12 Discontinued [Trazadol] 04/30/10 05/22/11 Discontinued Metoprolol Tartrate 100 Mg PO TWICE A DAY 05/21/11 Active Simvastatin 20 Mg PO DAILY 05/22/11 Active Losartan Potassium 100 Mg PO DAILY 04/09/12 Active Amlodipine Besylate DAILY 04/09/12 Active Potassium Chloride 10 Meq PO THREE TIMES A DAY 05/26/13 Active Levothyroxine Sodium 50 Mcg PO DAILY 06/10/13 07/18/14 Discontinued Mirtazapine 15 Mg PO BEDTIME Take 1 tablet, by mouth, 1 time a day at bedtime. 07/18/14 Active Lansoprazole 1 Cap PO BEDTIME 07/18/14 Active Oxybutynin Chloride 5 Mg PO DAILY 07/18/14 Active Allopurinol 07/18/14 Active Allopurinol 1 Tab PO DAILY 07/18/14 Active Lansoprazole 1 Cap PO BEDTIME 07/18/14 Active Metronidazole 500 Mg PO Q6H/0300,0900,1500,2100 For abdominal pain / GI Bleeding 7 Days 07/18/14 Active Levofloxacin 250 Mg PO BEFORE BREAKFAST For abdominal pain / GI Bleeding 6 Qty 07/18/14 Active Ondansetron HCl 4 Mg PO EVERY 4-6 HOURS For NAUSEA 12 Qty 07/18/14 Active Social History Social History Problem Response Recorded Date/Time Hx Substance Use No 07/18/2014 5:17pm Hx Alcohol Use No 07/18/2014 5:17pm Has the pt used tobacco in the last 12 months No 06/10/2013 8:47am Tobacco Usage none 07/18/2014 5:53pm Query Response Start Date Stop Date Smoking Status Never smoker Hospital Discharge Instructions No hospital discharge instructions. Plan of Care No plan of care. Functional Status Query Response Date Recorded Physical Hygiene Self July 18, 2014 5:17pm Disabilities None July 18, 2014 5:17pm Devices Used Glasses July 18, 2014 5:17pm Dressing Self July 18, 2014 5:17pm Ambulation Self July 18, 2014 5:17pm Diet Self July 18, 2014 5:17pm Mental Status Alert Oriented July 18, 2014 8:34pm Disabilities None July 18, 2014 5:17pm Devices Used Glasses July 18, 2014 5:17pm Physical Hygiene Self July 18, 2014 5:17pm Dressing Self July 18, 2014 5:17pm Ambulation Self July 18, 2014 5:17pm Diet Self July 18, 2014 5:17pm Allergies, Adverse Reactions, Alerts Allergen Type Severity Reaction Status Last Updated Sulfa (Sulfonamide Antibiotics) Allergy Intermediate HIVES Active 07/18/14 Iron Allergy Unknown Active 07/18/14 Morphine Adverse Reaction Mild N&V Active 07/18/14 Codeine Allergy Unknown Active 07/18/14 Hydrocodone Adverse Reaction Mild N&V Active 07/18/14 Meperidine Adverse Reaction Mild N & V Active 07/18/14 PRESERVATIVE FREE Allergy Unknown Active 07/18/14 Immunizations Name Given Type Hx Influenza Vaccination Y MAY 2013 Historical Hx Pneumococcal Vaccination Y DOESN'T REMEMBER DATE-WITHIN LAST 10 YEARS Historical Hx Influenza Vaccination Y MAY 2013 Historical Vital Signs Acute Vital Signs Vital Response Date/Time Temperature (Fahrenheit) 98.6 deg F (96.8 - 99.1) Temperature (Calculated Celsius) 37.79699 degrees C (36.0 - 37.3) Pulse Rate (adult) 84 bpm (60 - 100) Respiratory Rate 16 breaths/min (10 - 20) O2 Sat by Pulse Oximetry 94 % (90 - 100) Blood Pressure 134/61 mm Hg Height 5 ft 0 in Weight 138 lb Body Mass Index 27.0 kg/m^2 Results Test Source Date Result Interp. Ref. Range Comments Activated Partial Thromboplast Time April 09, 2012 12:00am 26.1 SEC N 24-36 Alanine Aminotransferase (ALT/SGPT) July 18, 2014 6:24pm 39 U/L N 9- 52 Albumin July 18, 2014 6:24pm 4.1 G/DL N 3.5-5.0 Albumin/Globulin Ratio July 18, 2014 6:24pm 1.5 RATIO N 1.1-2.2 Alkaline Phosphatase July 18, 2014 6:24pm 113 U/L N 38-126 Amylase Level July 18, 2014 6:24pm 39 U/L N 30-110 Anion Gap July 18, 2014 6:24pm 13 MEQ/L N 5-15 Aspartate Amino Transf (AST/SGOT) July 18, 2014 6:24pm 34 U/L N 14- 36 B-Type Natriuretic Peptide September 14, 2008 10:45am 225 PG/ML H 15-100 BUN/Creatinine Ratio July 18, 2014 6:24pm 29 RATIO H 6-26 Band Neutrophils # July 18, 2014 6:24pm 0.7 T/MM3 - Band Neutrophils % July 18, 2014 6:24pm 4.0 % N 0-6 Basophils # (Auto) October 02, 2013 6:09am 0.0 T/MM3 N 0-0.2 Basophils # (Manual) September 14, 2008 10:45am 0.0 T/MM3 N 0-0.2 Basophils % (Manual) September 14, 2008 10:45am 0.0 % N 0-2 Basophils (%) (Auto) October 02, 2013 6:09am 0.6 % N 0-2 Blood Urea Nitrogen July 18, 2014 6:24pm 52.0 MG/DL PH 7-17 Calcium Level July 18, 2014 6:24pm 9.3 MG/DL N 8.4-10.2 Calculated Osmolality July 18, 2014 6:24pm 292 MOSM/KG H 261-280 Carbon Dioxide Level July 18, 2014 6:24pm 30 MEQ/L N 22-30 Chemistry Specimen Hemolysis July 18, 2014 6:24pm < 15 0-25 0-25 : No Hemolysis.26-70: Slight Hemolysis - can falsely elevate K and Urine Protein. 71-285: Moderate Hemolysis - can falsely elevate K, Troponin I, CA 19-9, PTH, CSF GLucose, and Urine Protein, and can falsely decrease Phenytoin. 286-999: Gross Hemolysis - can falsely elevate K, Troponin I, CA 19-9, PTH, CSF Glucose, and Urine Protine, and can falsely decrease Phenytoin. Recommend specimen recollection. Chloride Level July 18, 2014 6:24pm 102 MEQ/L N 98-107 Cholesterol Level May 02, 2012 8:20am 140 MG/DL N 132-199 COMMENT WILL CALL WHEN THE PT GETS HERE Cholesterol/HDL Ratio May 02, 2012 8:20am 3.9 RATIO N 0-4.0 COMMENT WILL CALL WHEN THE PT GETS HERE Conjugated Bilirubin April 09, 2012 12:00am 0.00 MG/DL N 0.00-0.30 Creatinine July 18, 2014 6:24pm 1.8 MG/DL H 0.7-1.2 EKG September 14, 2008 10:45am Complete - Eosinophils # (Auto) October 02, 2013 6:09am 0.1 T/MM3 N 0-0.5 Eosinophils # (Manual) September 14, 2008 10:45am 0.0 T/MM3 N 0-0.5 Eosinophils % (Manual) September 14, 2008 10:45am 0.0 % N 0-4 Eosinophils (%) (Auto) October 02, 2013 6:09am 3.2 % N 0-4 Free Thyroxine November 06, 2013 5:25am 0.61 NG/DL L 0.78-2.19 Globulin July 18, 2014 6:24pm 2.8 G/DL N 2.4-3.6 Glomerular Filtration Rate Calc July 18, 2014 6:24pm 27 - Glucose Level July 18, 2014 6:24pm 88 MG/DL N 65-110 HDL Cholesterol Direct May 02, 2012 8:20am 36 MG/DL L 40-60 COMMENT WILL CALL WHEN THE PT GETS HERE Helicobacter pylori Antibodies November 28, 2012 2:52pm Negative - Hematocrit July 18, 2014 6:24pm 38.1 % N 36-46 Hemoglobin July 18, 2014 6:24pm 12.5 GM/DL N 12-16 Icterus Index July 18, 2014 6:24pm < 2 0-7 Immature Granulocyte # (Auto) October 02, 2013 6:09am 0.01 T/MM3 N 0.00 -0.03 Immature Granulocyte % (Auto) October 02, 2013 6:09am 0.3 % N 0.0-0.5 Influenza Type A Antigen July 18, 2014 5:10pm Negative - Negative for Flu A protein antigen. Assay sensitivity is90%. Influenza Type B Antigen July 18, 2014 5:10pm Negative - Negative for Flu B protein antigen. Assay sensitivity is90%. LDL Cholesterol, Calculated May 02, 2012 8:20am 104 N 66-159 COMMENT WILL CALL WHEN THE PT GETS HERE Lab Scanned Report November 06, 2013 10:34am LAB TEST FORM REQUEST [id number] - Lactate Dehydrogenase September 25, 2013 5:36am 475 U/L N 313-618 Lipase July 18, 2014 6:24pm 29 U/L N 23-300 Lymphocytes # (Auto) October 02, 2013 6:09am 0.5 T/MM3 L 1-4.8 Lymphocytes # (Manual) July 18, 2014 6:24pm 1.5 T/MM3 N 1-4.8 Lymphocytes % (Manual) July 18, 2014 6:24pm 9.0 % L 23-45 Lymphocytes (%) (Auto) October 02, 2013 6:09am 15.1 % L 23-45 Magnesium Level September 25, 2013 5:36am 2.1 MG/DL N 1.6-2.3 Mean Corpuscular Hemoglobin July 18, 2014 6:24pm 30.2 UUG N 26-34 Mean Corpuscular Hemoglobin Concent July 18, 2014 6:24pm 32.8 GM/DL N 31-37 Mean Corpuscular Volume July 18, 2014 6:24pm 92.0 UM3 N 80-100 Mean Platelet Volume July 18, 2014 6:24pm 10.5 UM3 N 9.4-12.4 Monocytes # (Auto) October 02, 2013 6:09am 0.3 T/MM3 N 0-0.8 Monocytes # (Manual) September 14, 2008 10:45am 0.5 T/MM3 N 0-0.8 Monocytes % (Manual) September 14, 2008 10:45am 6.0 % N 0-9.0 Monocytes (%) (Auto) October 02, 2013 6:09am 10.9 % H 0-9.0 TA-Aqt-U-Type Natriuretic Peptide April 09, 2012 12:00am 2360 PG/ML H 0 -175 Rule in cut points: <50 years old=450; 50-75 years old=900; >75 years old=1800; When utilizing ProBNP rule-in cut points, adjustment for impaired renal function is typically not required. Neutrophils # (Auto) October 02, 2013 6:09am 2.2 T/MM3 N 1.8-7.7 Neutrophils # (Manual) July 18, 2014 6:24pm 14.5 T/MM3 H 1.8-7.7 Neutrophils % (Manual) July 18, 2014 6:24pm 87.0 % H 33-66 Neutrophils (%) (Auto) October 02, 2013 6:09am 69.9 % H 33-66 Platelet Count July 18, 2014 6:24pm 112 T/MM3 L 130-400 Potassium Level July 18, 2014 6:24pm 3.7 MEQ/L N 3.6-5 Procalcitonin July 18, 2014 6:24pm 196.01 NG/ML PH - PCT </=0.5 ng/ mL - sepsis not likely;PCT >0.5 and </=2 ng/mL - sepsis possible; PCT >2 ng/mL - sepsis likely; PCT >/=10 ng/mL - systemic inflammatory response - sepsis or septic shock highly indicated. Prothromb Time International Ratio April 09, 2012 12:00am 0.96 N 0.86- 1.10 THERAPUTIC RANGE=2.00-3.00 FOR ANTI-THROMBOSIS THERAPUTIC RANGE=2.50- 3.50 FOR IMPLANTED VALVE RDW Standard Deviation July 18, 2014 6:24pm 43.5 FL N 36.9-50.2 Red Blood Count July 18, 2014 6:24pm 4.14 M/MM3 N 4.00-5.20 Sodium Level July 18, 2014 6:24pm 145 MEQ/L H 134-144 Thyroid Stimulating Hormone (TSH) November 06, 2013 5:25am 8.41 MIU/L H 0.47-4.68 Total Bilirubin July 18, 2014 6:24pm 1.00 MG/DL N 0.20-1.30 Total Protein July 18, 2014 6:24pm 6.9 G/DL N 6.3-8.2 Triglycerides Level May 02, 2012 8:20am 92 MG/DL N 35-135 COMMENT WILL CALL WHEN THE PT GETS HERE Troponin I April 09, 2012 12:00am < 0.012 ng/ml 0-0.12 Turbidity July 18, 2014 6:24pm < 20 0-20 Unconjugated Bilirubin April 09, 2012 12:00am 0.40 MG/DL N 0.00-1.10 Urine Bacteria July 18, 2014 7:18pm Trace H - Has specimen been collected/obtained? Y Urine Bilirubin July 18, 2014 7:18pm Negative - Has specimen been collected/obtained? Y Urine Blood July 18, 2014 7:18pm 2+ H - Has specimen been collected /obtained? Y Urine Collection Type July 18, 2014 7:18pm Cleancatch-midstream - Has specimen been collected/obtained? Y Urine Color July 18, 2014 7:18pm Yellow - Has specimen been collected/obtained? Y Urine Culture Indicated July 18, 2014 7:18pm Cult reflexed &setup - Has specimen been collected/obtained? Y Urine Glucose (UA) July 18, 2014 7:18pm Negative - Has specimen been collected/obtained? Y Urine Ketones July 18, 2014 7:18pm Negative - Has specimen been collected/obtained? Y Urine Leukocyte Esterase July 18, 2014 7:18pm 1+ H - Has specimen been collected/obtained? Y Urine Nitrite July 18, 2014 7:18pm Negative - Has specimen been collected/obtained? Y Urine Protein July 18, 2014 7:18pm Trace H - Has specimen been collected/obtained? Y Urine RBC July 18, 2014 7:18pm 1-3 /HPF - Has specimen been collected/obtained? Y Urine Specific [place] July 18, 2014 7:18pm 1.015 - Has specimen been collected/obtained? Y Urine Squamous Epithelial Cells April 09, 2012 12:35pm Few - Has specimen been collected/obtained? Y Urine Turbidity July 18, 2014 7:18pm Sl cloudy - Has specimen been collected/obtained? Y Urine Urobilinogen July 18, 2014 7:18pm 0.2 EU/DL - Has specimen been collected/obtained? Y Urine WBC July 18, 2014 7:18pm 10-20 /HPF H - Has specimen been collected/obtained? Y Urine pH July 18, 2014 7:18pm 5.5 - Has specimen been collected/ obtained? Y VLDL Cholesterol May 02, 2012 8:20am 18.4 MG/DL N 0-28 COMMENT WILL CALL WHEN THE PT GETS HERE Venous Blood Lactate July 18, 2014 6:24pm 1.2 MMOL/L N 0.6-2.2 White Blood Count July 18, 2014 6:24pm 16.7 T/MM3 H 4.5-11.0 Procedures No known history of procedures. Encounters Encounter Location Date/Time Registered Emergency Room [facility] 07/18/14 4:51pm Recent Diagnosis
--- OUTSIDE RECORDS SUMMARY | 2016-12-18 05:54 | XMS REPORT | Continuity of Care Document ---
Author Author [facility] Organization [facility] Address Unknown Phone Unavailable Allergies Active Description Code Type Severity Reaction Onset Reported/Identified Relationship to Patient Clinical Status Yes Demerol Drug Allergy Mild Adverse Reaction 05/31/2013 Yes Sulfa (Sulfonamide Antibiotics Drug Allergy Mild Adverse Reaction 05/31/2013 Yes codeine Drug Allergy Mild Nausea/Vomiting 06/01/2013 Yes iron Drug Allergy Mild Nausea/Vomiting 06/01/2013 Yes Lortab Drug Allergy Mild Nausea/Vomiting 06/01/2013 Yes No Known Food Allergies Food Allergy N/A N/A 09/11/2013 Medications Problems Date Dx Coded Attending Type Code Diagnosis Diagnosed By 05/30/2013 Ced Ace MD, I Final 202.80 XNODAL/NOS LYMPHOMA NEC 05/30/2013 Ced Ace MD I Final 244.9 HYPOTHYROIDISM NOS 05/30/2013 Ced Ace MD, I Final 263.0 MALNUTRITION MOD DEGREE 05/30/2013 Ced Ace MD, I Final 285.9 ANEMIA NOS 05/30/2013 Ced Ace MD, I Final 403.90 HTN CKD NOS I-IV/NOS 05/30/2013 Ced Ace MD, I Final 414.01 COR -[place] VESSEL 05/30/2013 Ced Ace MD, I Final 585.3 CKD-STAGE III 09/11/2013 Sofia GAVIN, Sergo Final 041.89 BACTERIAL INFECTION NEC 09/11/2013 Sofia GAVIN, Sergo Final 202.80 XNODAL/NOS LYMPHOMA NEC 09/11/2013 Sofia GAVIN, Sergo Final 276.51 DEHYDRATION 09/11/2013 Sofia GAVIN, Sergo Final 285.9 ANEMIA NOS 09/11/2013 Sofia GAVIN, Sergo Final 294.9 PERSIST MENT DIS CCE NOS 09/11/2013 Sofia GAVIN, Sergo Final 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 09/11/2013 Sofia GAVIN, Sergo Final 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 09/11/2013 Sofia GAVIN, Sergo Final 372.30 CONJUNCTIVITIS NOS 09/11/2013 Sofia GAVIN, Sergo Final 403.90 HTN CKD NOS I-IV/NOS 09/11/2013 Sofia GAVIN, Sergo Final 414.01 COR -[place] VESSEL 09/11/2013 Sofia GAVIN, Sergo Final 585.3 CKD-STAGE III 09/11/2013 Sofia GAVIN, Sergo Final 599.0 URINARY TRACT INF NOS 09/11/2013 Sofia GAVIN, Sergo Final 682.0 FACE CELLULITIS 09/11/2013 Sofia GAVIN, Sergo Final 715.90 OSTEOARTHOSIS NOS-NOS 09/11/2013 Sofia GAVIN, Sergo Final V49.86 DNR STATUS Procedures Code Description Performed By Performed On 41.31 BONE MARROW BIOPSY Wesley Sanchez DO 06/01/2013 99.25 INJECT CA CHEMO AGENT Wesley Sanchez DO 06/01/2013 Results Encounters ACCT No. Visit Date/Time Discharge Status Pt. Type Provider Facility Loc./Unit Complaint [id number] 09/11/2013 14:59:00 2013 14:30:00 DIS Inpatient Sofia GAVIN, [facility] on [address] [id number] 05/30/2013 09:00:00 2012 14:45:00 DIS Inpatient Db GAVIN, [facility] on [address]
--- OUTSIDE RECORDS SUMMARY | 2016-12-18 05:54 | XMS REPORT | Referral Summary ---
Author Author [facility], Family Medicine Organization [facility] Address Unknown Phone Unavailable Care Team Providers Care Tractor Technician Name Role Phone Daniel Hough Primary Care Physician [phone] Encounter VC Date(s): 03/11/15 - 03/11/15 [facility], Family [address] [place] [id number] Discharge Disposition: 01-Home or Self Care Attending Physician: Saul Hough MD Admitting Physician: Saul Hough MD Vital Signs Most recent to 1 oldest [Reference Range]: Blood Pressure 140/80 mmHg [90-140/60-90 mmHg] (03/11/15 10:21 AM) Problem List Condition Effective Dates Status [...] DAY, # 120 tabs, 2 Refill(s), eRx: [facility] #[id number], TAKE ONE TABLET BY MOUTH FOUR TIMES A DAY Start Date: 07/24/15 Status: Ordered furosemide 40 mg/5 mL oral solution 40 mg, Oral, BID, 0 Refill(s) Start Date: 07/16/15 Status: Ordered losartan 100 mg oral tablet 100 mg 1 tabs, Oral, Daily, # 90 tabs, 1 Refill(s), Pharmacy: [facility] # [id number], 1 tabs Oral Daily,x90 days Start Date: 07/15/15 Stop Date: 10/13/15 Status: Ordered Metoprolol Tartrate 50 mg oral tablet See Instructions, TAKE TWO TABLETS BY MOUTH EVERY MORNING, # 180 tabs, 1 Refill( s), eRx: [facility] #[id number], TAKE TWO TABLETS BY MOUTH EVERY MORNING Start Date: 07/31/15 Status: Ordered mirtazapine 15 mg oral tablet See Instructions, TAKE ONE TABLET BY MOUTH AT BEDTIME, # 30 tabs, eRx: [facility] #[id number], TAKE ONE TABLET BY MOUTH AT BEDTIME Start Date: 09/18/15 Status: Ordered Ocuvite tabs, Oral, Daily, 0 Refill(s) Start Date: 07/16/15 Status: Ordered omeprazole 20 mg, Oral, Daily, 0 Refill(s) Start Date: 03/11/15 Status: Ordered potassium chloride 10 mEq oral capsule, extended release See Instructions, TAKE ONE CAPSULE BY MOUTH THREE TIMES A DAY, # 120 unknown unit, 1 Refill(s), eRx: [facility] #[id number], TAKE ONE CAPSULE BY MOUTH THREE TIMES A DAY Start Date: 08/21/15 Status: Ordered traZODone 100 mg oral tablet See Instructions, TAKE ONE TABLET BY MOUTH AT BEDTIME, # 30 tabs, eRx: [facility] #[id number], TAKE ONE TABLET BY MOUTH AT BEDTIME Start Date: 09/11/15 Status: Ordered Zocor 20 mg oral tablet See Instructions, TAKE ONE TABLET BY MOUTH AT BEDTIME, # 30 tabs, eRx: [facility] #[id number], TAKE ONE TABLET BY MOUTH AT BEDTIME Start Date: 09/11/15 Status: Ordered Results No data available for [...] Author: Saul Hough MD Date: Family Medicine Arthritis, Nonspecific Arthritis is inflammation of a joint. This usually means pain, redness, warmth or swelling are present. One or more joints may be involved. There are a number of types of arthritis. Your caregiver may not be able to tell what type of arthritis you have right away. CAUSES The most common cause of arthritis is the wear and tear on the joint ( osteoarthritis). This causes damage to the cartilage, which can break down over time. The knees, hips, back and neck are most often affected by this type of arthritis. Other types of arthritis and common causes of joint pain include: Sprains and other injuries near the joint. Sometimes minor sprains and injuries cause pain and swelling that develop hours later. Rheumatoid arthritis. This affects hands, feet and knees. It usually affects both sides of your body at the same time. It is often associated with chronic ailments, fever, weight loss and general weakness. Crystal arthritis. Gout and pseudo gout can cause occasional acute severe pain, redness and swelling in the foot, ankle, or knee. Infectious arthritis. Bacteria can get into a joint through a break in overlying skin. This can cause infection of the joint. Bacteria and viruses can also spread through the blood and affect your joints. Drug, infectious and allergy reactions. Sometimes joints can become mildly painful and slightly swollen with these types of illnesses. SYMPTOMS Pain is the main symptom. Your joint or joints can also be red, swollen and warm or hot to the touch. You may have a fever with certain types of arthritis, or even feel overall ill. The joint with arthritis will hurt with movement. Stiffness is present with some types of arthritis. DIAGNOSIS Your caregiver will suspect arthritis based on your description of your symptoms and on your exam. Testing may be needed to find the type of arthritis: Blood and sometimes urine tests. X-ray tests and sometimes CT or MRI scans. Removal of fluid from the joint (arthrocentesis) is done to check for bacteria, crystals or other causes. Your caregiver (or a specialist) will numb the area over the joint with a local anesthetic, and use a needle to remove joint fluid for examination. This procedure is only minimally uncomfortable. Even with these tests, your caregiver may not be able to tell what kind of arthritis you have. Consultation with a specialist (zinc plate grainer) may be helpful. TREATMENT Your caregiver will discuss with you treatment specific to your type of arthritis. If the specific type cannot be determined, then the following general recommendations may apply. Treatment of severe joint pain includes: Rest. Elevation. Anti-inflammatory medication (for example, ibuprofen) may be prescribed. Avoiding activities that cause increased pain. Only take pfgx-vpe-smnikre or prescription medicines for pain and discomfort as recommended by your caregiver. Cold packs over an inflamed joint may be used for 10 to 15 minutes every hour. Hot packs sometimes feel better, but do not use overnight. Do not use hot packs if you are diabetic without your caregiver's permission. A cortisone shot into arthritic joints may help reduce pain and swelling. Any acute arthritis that gets worse over the next 1 to 2 days needs to be looked at to be sure there is no joint infection. Long-term arthritis treatment involves modifying activities and lifestyle to reduce joint stress jarring. This can include weight loss. Also, exercise is needed to nourish the joint cartilage and remove waste. This helps keep the muscles around the joint strong. HOME CARE INSTRUCTIONS Do not take aspirin to relieve pain if gout is suspected. This elevates uric acid levels. Only take vnum-oud-vpodbly or prescription medicines for pain, discomfort or fever as directed by your caregiver. Rest the joint as much as possible. If your joint is swollen, keep it elevated. Use crutches if the painful joint is in your leg. Drinking plenty of fluids may help for certain types of arthritis. Follow your caregiver's dietary instructions. Try low-impact exercise such as: Swimming. Water aerobics. Biking. Walking. Morning stiffness is often relieved by a warm shower. Put your joints through regular [id number]. SEEK MEDICAL CARE IF: You do not feel better in 24 hours or are getting worse. You have side effects to medications, or are not getting better with treatment. SEEK IMMEDIATE MEDICAL CARE IF: You have a fever. You develop severe joint pain, swelling or redness. Many joints are involved and become painful and swollen. There is severe back pain and/or leg weakness. You have loss of bowel or bladder control. Document Released: 09/09/2005 Document Revised: 10/24/2012 Document Reviewed: [facility] Patient Information 2015 [employer]. This information is not intended to replace advice given to you by your health care provider. Make sure you discuss any questions you have with your health care provider. Food Choices for Gastroesophageal Reflux Disease When [...] Tomatoes. Tomato juice. Tomato and spaghetti sauce. [place] peppers. Onion and garlic. Horseradish. Fruits Oranges, [...] spearmint. Fats and Oils High-fat foods, including [place] fries and potato chips. Other Vinegar. Strong spices, such as black pepper, white pepper, red pepper, cayenne, noonan powder, cloves, milan, and chili powder. The items listed above may not be a complete list of foods and beverages to avoid. Contact your dietitian for more information. Document Released: 08/02/2006 Document Revised: 08/07/2014 Document Reviewed: [facility] Patient Information 2015 [employer]. This information is not intended to replace advice given to you by your health care provider. Make sure you discuss any questions you have with your health care provider. No follow up information was provided. Extracted from: Title: Office Visit Note Author: Saul Hough MD Date: 03/11/15 Assessment/Plan DJD (degenerative joint disease) Will have her see Dr. Hilliard orthopedics. Ordered: Office Visit Level 4 Est 06059 GERD (gastroesophageal reflux disease) continue with the current medications Ordered: Office Visit Level 4 Est 02861 Peptic ulcer disease Ordered: Office Visit Level 4 Est 05853
[2016-12-18 06:22] VITALS: Ht 152.4 cm; Wt 66.1 kg
[2016-12-18 06:23] VITALS: BP 185/77; PULSE 73; RESP 20; TEMP 98.2; O2SAT 92
[2016-12-18] MEDS ORDERED: NORMAL SALINE 1,000 ML IV ONE (07:00)
[2016-12-18] MEDS ORDERED: LIDOCAINE 1% (10mg/ml) 2ml SDV INJ ONE (07:00)
--- NOTE | 2016-12-18 07:23 | ANESPREOP ---
Anesthesia Record Date and Time DATE: 12/18/16 TIME: 07:19 Pre-Op Diagnosis abnormal ct scan of abdomen Proposed Surgical Procedure EGD WITH BX NPO since: mn Allergies: Coded Allergies: Sulfa (Sulfonamide Antibiotics) (Verified Allergy, Intermediate, HIVES, 02/17/15) iron (Verified Allergy, Unknown, 02/17/15) sulfanilamide (Unverified Allergy, Unknown, 09/20/15) PER H&P DATED 08-28-15 hydrocodone (Verified Adverse Reaction, Mild, N&V, 02/17/15) meperidine (Verified Adverse Reaction, Mild, N & V, 02/17/15) morphine (Verified Adverse Reaction, Mild, N&V, 02/17/15) codeine (Verified Adverse Reaction, Unknown, N/V, 09/20/15) Uncoded Allergies: PRESERVATIVE FREE (Allergy, Unknown, 07/18/14) Ht/Wt/BMI Height: 5 ' 0.00 " Weight: 66.100 kg BMI: 28.5 kg/m2 Vital Signs Date Time Temp Pulse Resp B/P Pulse Ox O2 Delivery O2 Flow Rate FiO2 12/18/16 06:23 98.2 73 20 185/77 92 Room Air Medications Acetaminophen (Tylenol) 325 Mg Tablet, 650 MG PO QID Last Taken: on 12/17/16 2100 Aspirin (Aspir 81) 81 Mg Tablet.dr, 1 TAB PO DAILY, (Reported) Last Taken: on 12/17/16 2100 Furosemide (Furosemide) 40 Mg Tablet, 40 MG PO BID, (Reported) Last Taken: on 12/17/16 1400 Losartan Potassium (Losartan Potassium) 100 Mg Tablet, 100 MG PO DAILY, (Reported) Last Taken: on 12/18/16 0500 Metoprolol Tartrate (Metoprolol Tartrate) 100 Mg Tablet, 100 MG PO WB, (Reported) Take 1 tab, by mouth, one time a day (with breakfast). Last Taken: on 12/18/16 0500 Mirtazapine (Mirtazapine) 15 Mg Tablet, 15 MG PO HS, (Reported) Take 1 tablet, by mouth, 1 time a day at bedtime. Last Taken: on 12/18/16 0500 Mv-Mn/FA/Vit K/Lycop/Lut/Zeaxa (Ocuvite Eye + Multi Tablet) 1 Each Tablet, 1 TAB PO DAILY, (Reported) Last Taken: on 12/17/16 06 Omeprazole Magnesium (Prilosec Otc) 20 Mg Tablet.dr, 1 TAB PO DAILY, (Reported) Last Taken: on 12/17/16 06 Polyethylene Glycol 3350 (Miralax) 17 Gm Packet , 17 GM PO DAILY Last Taken: on Unknown Date & Time Polyvinyl Alcohol (Artificial Tears) 15 Ml Drops, 1 DROP BOTH EYES PRN, (Reported) Last Taken: on 12/17/16 06 Potassium Chloride (Potassium Chloride) 10 Meq Capsule.sa, 10 MEQ PO TID, (Reported) Last Taken: on 12/17/161799 Simvastatin (Simvastatin) 20 Mg Tablet, 20 MG PO HS, (Reported) Last Taken: on 12/17/162099 Sucralfate (Carafate) 1 Gm/10 Ml Oral.susp, 1 G PO ACHS, (Reported) Last Taken: on 12/17/161799 Trazodone Hcl (Trazodone Hcl) 100 Mg Tablet, 1 TAB PO HS, (Reported) Last Taken: on 12/17/162099 Currently on Beta Felecia: Yes Beta Felecia Last Taken: metoprolol at 0500 12/18/16 Medical/Surgical History Anesthesia PMH: Reports: *Dyspnea (WITH EXERTION), *Hypertension (PER H&P, sees Dr. Daniel every 6 months, no MIs, ), Arthritis (ALL OVER, BACK IS WORST) , Cancer (MALIGNANT LYMPHOMA PER H&P), Clotting Problems (BRUISES EASILY), Headaches (HX OF MIGRAINES), Pneumonia ("DOUBLE PNEUMONIA" 1996), Reflux (PER H& P), Renal Disease (STAGE 3 PER H&P), Thyroid Disease (HYPOTHYROIDISM PER H&P), Denies: *Angina, *Diabetes, *PA, Anesthesia Reactions, Asthma, Blood Transfusion Reac, CHF, COPD, CVA/Stroke/TIA, Deep Vein Thrombosis, Glaucoma, Hepatitis, Hiatal Hernia, Malignant Hyperthermia, Pacemaker, Rheumatic Fever, Seizures, Sleep Apnea, Tuberculosis Use Chewing Tobacco?: No Past Surgical History Orthopedic Surgeries: Yes - R. KNEE ARTHROSCOPY, TOE & BACK PER H&P Abdominal Surgeries: Yes - APPY PER H&P Genitourinary Surgeries: No Cardiac Surgeries: Yes - HEART CATH., CABG PER H&P Endocrine Surgeries: No Reproductive Surgeries: Yes - HYST. PER H&P Neurological Surgeries: Yes - HERNIATED DISC 1975 Ear Surgeries: No Nose Surgeries: No Throat Surgeries: Yes - TONSILLECTOMY PER H&P Other Surgeries: Yes - INSERTION OF PAC, COLONOSCOPY PER H&P Anesthesia Adverse Reactions: FOUND none, FOUND other (took awhile to wake up ) Pertinent Findings EKG Rhythm: Sinus Rhythm Physical Exam Respiratory: Bilat breath sounds equal, Lungs clear Cardiovascular: FOUND Regular rate, rhythm, FOUND No murmur Airway Assessment Mallampati Score: III TMD: 2 Fingerbreadths Neck Extension: Good Overall Assessment: May Be Diff Intubation ASA: 3 Plan Anesthesia Plan: TIVA Discussion Discussed risks/options/alternatives of anesthesia and questions answered. Patient consents. Nursing pain assessment noted. Attestation Statement Prior to the delivery of any anesthetic medication, I examined the patient, developed the plan, obtained the patient's consent and discussed the risk and benefits of the procedure with the patient/guardian. ARNALDO BURRELL CRNA December 18, 2016 07:23
[2016-12-18] MEDS ORDERED: LIDOCAINE 2% (20mg/ml) 5ml PF SDV ONE (07:26)
[2016-12-18] MEDS ORDERED: PROPOFOL 200mg 20 ML IV ONE (07:26)
[2016-12-18] MEDS ORDERED: LIDOCAINE VISCOUS 2% Oral Soln 15ml UD ONE (07:52)
[2016-12-18 08:09] VITALS: BP 126/59; PULSE 60; RESP 12; TEMP 97.4; O2SAT 94
[2016-12-18 08:25] VITALS: BP 128/65; PULSE 58; RESP 16; O2SAT 92
--- NOTE | 2016-12-18 08:34 | ANESPO ---
Post-Op Note Date 12/18/16 Time: 08:15 Status Pt Participated in Evaluation: Pt participated in person Vital Signs Date Time Temp Pulse Resp B/P Pulse Ox O2 Delivery O2 Flow Rate FiO2 12/18/16 08:25 58 16 128/65 92 Room Air 12/18/16 08:09 97.4 Respiratory Function: Airway patent Cardiovascular Function: Regular pulse Mental Status: Alert/oriented Pain Level Intensity: 0 Unable to Assess Pain Due To: Medicated/Sleeping Hydration: IV infusing Complications during Recovery None apparent Follow-Up Instructions Instructions Per Surgeon ARNALDO BURRELL CRNA December 18, 2016 08:34
[2016-12-18 08:40] VITALS: BP 149/78; PULSE 70; RESP 16; O2SAT 96
--- NOTE | 2016-12-18 09:07 | NUR ---
report called to [place] nurse at [facility].
--- NOTE | 2016-12-18 14:08 | OPNOTEF ---
DATE OF SERVICE 12/18/2016 SURGEON John White MD PREOPERATIVE DIAGNOSIS Personal history of lymphoma, abnormal CT scan revealing thickening of antral portion of stomach. POSTOPERATIVE DIAGNOSIS Mild antritis, narrowing of pyloric region. PROCEDURE Esophagogastroduodenoscopy with biopsies from antrum for permanent pathology as well as for BLACK assay via cold biopsy technique, biopsies from prepyloric and pyloric region via cold biopsy technique. ANESTHESIA TIVA BRIEF HISTORY/INDICATIONS Mrs. Torrez is an 86-year-old female who has a personal history for lymphoma. She has had serial CT scans which most recently has revealed increasing prominence of the antral portion of the stomach. As a result of this abnormal CT scan, it was recommended that she undergo an EGD for further evaluation. Patient presents today to undergo this procedure. FINDINGS Upon upper endoscopy, the esophagus, stomach and initial duodenal bulb was found to be without marked abnormalities with the exception that there was some erythema within the antral portion of the stomach. No exophytic neoplastic appearing lesions were present. Furthermore the pylorus was narrowed to the point that the gastroscope was unable to be advanced through the pylorus and into the duodenum. Duodenal bulb, however, could be seen through the remaining opening of the pylorus. I elected not to proceed with dilatation of the pylorus given the fact the patient was asymptomatic currently and was an underlying risk of course for perforation. There was no retained food particulate matter within the stomach as well. Several biopsies were obtained from the pyloric region as well as from just beyond the pyloric region within the duodenum. DESCRIPTION OF PROCEDURE After informed consent was obtained, the patient was brought to the endoscopy suite, placed on the table in left lateral decubitus position. The patient subsequently underwent total intravenous anesthesia by the nurse press tender long goods at my request. Formal time-out was then completed. Next an Olympus gastroscope was inserted in the oral hypopharynx and subsequently the esophagus under direct visualization. Gastroscope was advanced through the esophagus, stomach, and into the prepyloric/antral region. As stated above, the mucosa within the antral portion was somewhat erythematous in nature. There was, however. no obvious suspicious appearing lesions noted involving the mucosa of the stomach. J-maneuver was then performed. Cardia and fundus were within normal limits. Scope was allowed to straighten and slowly withdrawn. The remaining corpus of the stomach was well visualized and again without marked abnormalities. Scope was withdrawn back to the prepyloric region. As stated above, there was a component of narrowing of the pylorus to the point that the gastroscope was not able to be advanced completely into the duodenum but one could see the duodenum through the remaining pyloric opening. The patient was asymptomatic in nature and there was no particulate matter within the stomach as discussed above. Therefore, we elected not to proceed with dilatation of the pyloric region. Biopsies were obtained from the pylorus region as well as within the first portion of the duodenum through the pyloric region. Biopsies were placed within a single container from this location. Scope was withdrawn back into the antrum. Biopsies were also obtained from the antrum at various locations via cold biopsy technique and placed within a separate container. Furthermore, biopsy was also obtained from the antral portion of stomach for BLACK assay. Scope was withdrawn back to the level of the diaphragm. Squamocolumnar junction was well demarcated with no endoscopic evidence for Do's metaplasia. Scope was then continued be slowly withdrawn. The remaining esophageal mucosa was found to be within normal limits. We will await the biopsy results from today's EGD and will proceed accordingly with further recommendations thereafter. [facility]
== END 2016-12-18 09:04 | disposition home or self-care (01) ==
LOC: NSC 05:47
PROVIDERS: ATTEND Surgery
DX: K29.30 Chronic superficial gastritis without bleeding (principal); R93.3 Abnormal findings on diagnostic imaging of other parts of digestive tract; Z85.72 Personal history of non-Hodgkin lymphomas; K21.9 Gastro-esophageal reflux disease without esophagitis; Z87.11 Personal history of peptic ulcer disease; I12.9 Hypertensive chronic kidney disease with stage 1 through stage 4 chronic kidney disease, or unspecified chronic kidney disease; N18.3 Chronic kidney disease, stage 3 (moderate); E03.9 Hypothyroidism, unspecified; E78.2 Mixed hyperlipidemia; F41.9 Anxiety disorder, unspecified; I25.810 Atherosclerosis of coronary artery bypass graft(s) without angina pectoris; F51.04 Psychophysiologic insomnia; I27.2 Other secondary pulmonary hypertension; Z98.61 Coronary angioplasty status; Z79.82 Long term (current) use of aspirin; Z79.899 Other long term (current) drug therapy
CPT/HCPCS: 43239; 87081; 88305; 88342; J1642; J2704; J7030

== ENCOUNTER 2018-03-26 08:20 | Inpatient (IN) ==
--- NOTE | 2018-03-26 08:24 | Emergency Department Report ---
General Adult HPI - General Chief complaint: Shortness of Breath/Dyspnea Stated complaint: SOA, hbp, feet swelling, nausea Source: patient, family Mode of arrival: wheelchair Limitations: no limitations - History of Present Illness HPI narrative: 87 F presents to the emergency department with the chief complaint of shortness of breath, bilateral lower extremity swelling and elevated blood pressure. Patient had not been given her clonidine per parameters at her care facility for elevated blood pressure. Over the past couple of days she has noted increasing shortness of breath and swelling of her bilateral lower extremities. She also notes orthopnea. She denies any current pain or discomfort. She does not use home O2. No other complaints or associated symptoms at this time. Patient had been taken off of her twice a day Lasix prescription by her primary care physician recently. - Related Data Home Medications Medication Instructions Recorded Confirmed Simvastatin 20 mg PO HS #0 05/22/11 03/26/18 Potassium Chloride 40 meq PO DAILY #0 05/26/13 03/26/18 Omeprazole Magnesium [Prilosec Otc] 20 mg PO BID #0 tab 09/19/15 03/26/18 Mv-Min/FA/Vit K/Lycop/Lut/Zeax 1 tab PO DAILY #0 12/17/16 03/26/18 [Ocuvite Eye Plus Multi Tablet] Acetaminophen 325 - 650 mg PO TID PRN 02/26/18 03/26/18 Acetaminophen [Non-Aspirin Pain 500 mg PO BID 02/26/18 03/26/18 Relief] Carboxymethylcellulose O/S 1 drop OP DAILY 02/26/18 03/26/18 [Refresh Celluvisc] Cholecalciferol (Vitamin D3) 4,000 unit PO DAILY 02/26/18 03/26/18 [Vitamin D3] CloNIDine [Catapres] 0.1 mg PO BID 02/26/18 03/26/18 Folic Acid [Folate] 1 mg PO DAILY 02/26/18 03/26/18 Furosemide [Lasix 40 mg Tab] 40 mg PO DAILY 02/26/18 03/26/18 Loperamide HCl [Imodium A-D] 2 mg PO PRN PRN 02/26/18 03/26/18 Losartan [Cozaar] 100 mg PO DAILY 02/26/18 03/26/18 Melatonin/Pyridoxine HCl (B6) 2 mg PO HS 02/26/18 03/26/18 [Melatonin 1 mg Tablet] Metoprolol Tartrate [Lopressor] 50 mg PO BIDWM 02/26/18 03/26/18 Mirtazapine [Remeron] 15 mg PO HS 02/26/18 03/26/18 PEG 3350 17gm PACKET [Miralax] 17 gm PO DAILY PRN 02/26/18 03/26/18 Sucralfate [Carafate] 1 gm PO QID 02/26/18 03/26/18 Trazodone [Desyrel] 100 mg PO HS 02/26/18 03/26/18 Cyanocobalamin (Vitamin B-12) 2,000 mcg PO DAILY 03/26/18 03/26/18 [Vitamin B-12] Mag Carb/Aluminum Hydrox/Algin 15 - 30 ml PO QID PRN 03/26/18 03/26/18 [Gaviscon Extra Strength Liquid] Omeprazole 20 mg PO BID PRN 03/26/18 03/26/18 Ondansetron HCl 2 mg PO Q4H PRN 03/26/18 03/26/18 Allergies Allergy/AdvReac Type Severity Reaction Status Date / Time Sulfa (Sulfonamide Allergy Intermediate HIVES Verified 03/26/18 09:21 Antibiotics) iron Allergy Unknown Verified 03/26/18 09:21 hydrocodone AdvReac Mild N&V Verified 03/26/18 09:21 meperidine AdvReac Mild N & V Verified 03/26/18 09:21 morphine AdvReac Mild N&V Verified 03/09/18 12:05 codeine AdvReac Unknown N/V Verified 03/26/18 09:21 PRESERVATIVE FREE Allergy Unknown Uncoded 03/09/18 12:05 Review of Systems Constitutional: Denies: fever, chills Eyes: Denies: eye pain, vision change ENT: Denies: ear pain, throat pain Cardiovascular: Denies: chest pain, palpitations Respiratory: Reports: dyspnea. Denies: cough, wheezes Gastrointestinal: Denies: abdominal pain, nausea, vomiting, diarrhea Genitourinary: Denies: urgency, dysuria Musculoskeletal: Denies: back pain, arthralgia Integumentary: Denies: erythema, rash Neurological: Denies: headache, numbness, paresthesias Psychiatric: Denies: anxiety, depression Endocrine: Denies: polydipsia, polyuria Hematological/Lymphatic: Denies: easy bruising, lymphadenopathy Allergic/Immunologic: Denies: facial swelling, urticaria PFSH Patient Stated Medical History Macular Degeneration Yes Hypertension Yes Gastroesophageal Reflux Yes Disease Ulcer Yes Hx Urinary Tract Infection Yes Other Yes: STAGE 3 CKD Blood Transfusions Yes Other Behavioral Health Yes: BORDERLINE PERSONALITY DISORDER Surgical History: EGD, total knee replacement Family History: Reviewed and noncontributory - Social History Smoking status: Never smoker Substance use type: does not use Alcohol intake frequency: does not drink Physical Exam - Limitations Limitations: no limitations - General General appearance: alert, in no apparent distress - Normal Exams: Head:: Normocephalic without trauma Eyes:: Pupils are PERRLA w/ EOMI, No scleral icterus, irritation, or foreign bodies noted ENMT:: No facial trauma, nasal exudates, pharyngeal erythema, or exudates are noted Dental: No fractured, loose, or missing teeth noted Neck:: Full range of motion, without adenopathy, JVD, bruits or thyromegaly Chest/Respirations:: Clear all aguero (BiBasilar Rales), with good airflow, and symmetry bilaterally Cardiovascular:: Regular rate and rhythm, without murmur or gallop, Pulses 2+ all extremities, capillary refill, <2 seconds all extremities (1+ bilateral lower extremity edema.) Abdomen:: Bowel sounds positive, soft, non-tender, non-distended, no hepatosplenomegaly, masses or bruits noted Lymphatic:: No lymphadenopathy, or lymphedema noted Musculoskeletal:: No tenderness, or deformity noted, good range of motion, all extremities Integumentary:: No rashes, hives, or bruising noted, hair and nails, without abnormality Neurological:: Patient is alert, and oriented, cranial nerves, motor/sensory/ cerebellar, exams w/o gross deficits, to observation Psychiatric:: Patient exhibits, appropriate attention, emotion and affect Course Vital Signs Temperature 98.6 F 03/26/18 08:24 Pulse Rate 76 03/26/18 08:24 Respiratory Rate 24 03/26/18 08:24 Blood Pressure 228/105 H 03/26/18 08:24 Pulse Oximetry 78 L 03/26/18 08:24 Temperature 96.3 F L 03/26/18 16:03 Pulse Rate 64 03/26/18 16:03 Respiratory Rate 22 03/26/18 16:03 Blood Pressure 177/76 H 03/26/18 16:03 Pulse Oximetry 94 03/26/18 16:03 Medical Decision Making - [facility] Narrative Medical decision making narrative: Labs/imaging were discussed in detail with the patient and family and questions are answered. Patient is given 40 mg of potassium by mouth 1 in the emergency department. She is given a DuoNeb nebulized treatment in the emergency department with improvement of symptoms. She is given Lasix 40 mg grams IV times one. Patient is admitted to the service of the hospitalist Dr. Olivas after discussion with him. No further orders from accepting physician who is in agreement with the current plan of management. Patient is admitted to the hospital in improved condition. Patient and family are in agreement with the current plan of management. Patient was also given clonidine 0.1 mg by mouth with improvement of blood pressure for elevated blood pressure. - Differential Diagnosis CHF, COPD, pneumonia, viral syndrome, metabolic disorder - Lab Data Result diagrams: 03/26/18 08:46 03/26/18 08:46 Lab Results 03/26/18 03/26/18 Range/Units 08:46 08:46 WBC 5.8 (4.5-11.0) T/MM3 RBC 3.47 L (4.00-5.20) M/MM3 Hgb 10.4 L (12-16) GM/DL Hct 31.7 L (36-46) % MCV 91.4 (80-100) UM3 MCH 30.0 (26-34) UUG MCHC 32.8 (31-37) GM/DL RDW Std Deviation 42.6 (36.9-50.2) FL Plt Count 140 (130-400) T/MM3 MPV 10.7 (9.4-12.4) UM3 Immature Gran % (Auto) 0.0 (0.0-0.5) % Neut % (Auto) 76.0 H (33-66) % Lymph % (Auto) 15.1 L (23-45) % Pleasants % (Auto) 7.3 (0-9.0) % Eos % (Auto) 1.4 (0-4) % Baso % (Auto) 0.2 (0-2) % Neut # (Auto) 4.4 (1.8-7.7) T/MM3 Lymph # (Auto) 0.9 L (1-4.8) T/MM3 Pleasants # (Auto) 0.4 (0-0.8) T/MM3 Eos # (Auto) 0.1 (0-0.5) T/MM3 Baso # (Auto) 0.0 (0-0.2) T/MM3 Abs Immat Gran (auto) 0.00 (0.00-0.03) T/MM3 Turbidity < 20 (0-20) Sodium 149 H (136-146) MEQ/L Potassium 3.0 L (3.6-5) MEQ/L Chloride 113 H (98-107) MEQ/L Carbon Dioxide 27 (22-30) MEQ/L Anion Gap 9 (5-15) meq/L BUN 9.0 (7-17) MG/DL Creatinine 0.9 (0.7-1.2) mg/dL Estimated Creat Clear 36 (>50) mL/min GFR Calculation 60 (>60) mL/min BUN/Creatinine Ratio 10 (6-26) RATIO Glucose 101 (65-110) MG/DL Calculated Osmolality 285 H (261-280) MOSM/KG Calcium 8.8 (8.4-10.2) MG/DL Total Bilirubin 0.50 (0.20-1.30) MG/DL Icterus Index < 2 (0-7) AST 18 (14-36) U/L ALT 13 (1-35) U/L Alkaline Phosphatase 56 (38-126) U/L Troponin I < 0.012 (0-0.12) ng/ml NT-Pro-B Natriuret Pep 3560 H (0-175) pg/mL Total Protein 6.3 (6.3-8.2) g/dL Albumin 3.8 (3.5-5.0) g/dL Globulin 2.5 (2.4-3.6) G/DL Albumin/Globulin Ratio 1.5 (1.1-2.2) RATIO Specimen Hemolysis < 15 (0-25) - Radiology Data Chest X-ray: Patchy bilateral infiltrates consistent with CHF. - EKG Data EKG #1 EKG results narrative: Sinus rhythm. 69 bpm. No STEMI. Nonspecific ST changes. Disposition Clinical Impression: CHF (congestive heart failure) Qualifiers: Heart failure type: unspecified Heart failure chronicity: unspecified Qualified Code(s): I50.9 - Heart failure, unspecified Disposition: 02 To OBS [facility] Condition: Stable Time of Disposition: 10:00 - Seen By: physician
[2018-03-26] MEDS ORDERED: ALBUTEROL/IPRATROPIUM 2.5mg-0.5mg/3ml NEB AEROSOL ONE (09:00)
[2018-03-26] MEDS ORDERED: FUROSEMIDE 40 MG/4 ML INJECTION IVP ONE (09:58)
[2018-03-26] MEDS ORDERED: POLYETHYL GLYCOL 3350 17gm PACKET PO PRN (11:52)
[2018-03-26] MEDS ORDERED: ACETAMINOPHEN 325 MG TABLET PO PRN (12:10)
[2018-03-26] MEDS ORDERED: ONDANSETRON 4 MG/2 ML INJECTION IVP PRN (12:10)
--- NOTE | 2018-03-26 13:56 | History & Physical Report ---
History of Present Illness Date: 03/26/18 Chief complaint: pulmonary edema, hypokalemia HPI: Holli Torrez is a pleasant 87-year-old resident who resides at [facility] and currently follows with Dr. Mayes. Her daughter, Ngoc, whom is a RN, is present on exam and contributes to the history. On 02/26/18, Holli was seen at [facility] ED for evaluation of abdominal pain. She was found to have a UTI secondary to Klebsiella pneumoniae and was treated as an outpatient with Keflex. Following her evaluation in the ED, she was seen in clinic by Dr. Mayes on 02/28/18 at which time labs were obtained but the results were not available. Family reports that she seemed to be doing better. She was then seen by Dr. Eubanks for a routine visit on 03/09/18 regarding her history of CAD with prior CABG x 1 vessel and hypertension. She reports that he said "everything was good" and no medication changes were made. At the time of her evaluation with Dr. Eubanks she was reportedly on multiple antihypertensive medications including Lasix 80mg. According to the family, over the past few months, Dr. Mayes has been adjusting and eliminating her cardiac medications due to concern about her renal function. She suffered an acute kidney injury in 2013 at which time she established care with Dr. Reddy, nephrology. Family reports a known history of chronic kidney disease, stage III, with an average GFR of 50 per labs since 09/2017 with SCr 0.9 today. Due to her significantly improved renal function since 2013, she was released from Dr. Reddy's care with follow up only as needed. Family states that following her appointment with Dr. Eubanks, she was contacted via phone by Dr. Mayes regarding her recent labs. She had labs done at Dr. Mayes office on 02/28/18 but she is unsure if she had any additional labs following that. Based on the results of her labs, she was instructed to go to [facility] infusion center to receive 1L NS bolos which she received on 03/09/18. At that time, Dr. Mayes reportedly discontinued all of her cardiac medications with the exception of metoprolol and all potentially nephrotic medications including her GI medications, despite her known history of GERD and PUD with previous bleeding ulcers requiring blood transfusions. Since the discontinuation of her lasix and other medications on 03/09/18, family reports that she has progressively become more weak, complaining that her legs are heavy. Holli reports a average weight of ~136-140 pounds and was found to be 152 pounds on admission. She also complains of increased dyspnea which is worse with exertion and increasing lower extremity edema. Upon arrival to the ED, she was found to be hypoxic at 78% on room air and denies use of home oxygen. She was given Lasix 40mg IV with KCl and clonidine 0.1mg PO for her hypertension. Dr. Chun was contacted and she was admitted into inpatient status for further evaluation, pulmonary edema with fluid overload to receive IV diuresis with close monitoring. Review of Systems All systems PM: 10-point ROS was reviewed, no additional remarkable complaints except - Constitutional Constitutional: Present: weakness (generalized). Absent: fever(s) Comments: Decreased appetite - EENMT Eyes: Absent: diplopia, dry eye, photophobia Ears: Absent: ear pain Balance: Absent: falling to one side Nose: Absent: nosebleeds Mouth/Throat: Present: dry mouth. Absent: pain - Cardiovascular Cardiovascular: Present: dyspnea on exertion, orthopnea, edema. Absent: chest pain, palpitations, syncope Rhythm: Present: regular rhythm Vascular: Present: pedal edema. Absent: pallor of an extermity, unilateral swelling - Respiratory Respiratory: Present: cough (dry), dyspnea, dyspnea on exertion. Absent: hemoptysis, wheezing, pain on inspiration - Gastrointestinal Gastrointestinal: Absent: abdominal pain, hematochezia, melena, nausea, vomiting - Genitourinary Genitourinary: Absent: dysuria, flank pain, hematuria Menstruation: post hysterectomy - Musculoskeletal Musculoskeletal: Present: muscle weakness. Absent: back pain, deformity - Integumentary/Breasts Integumentary: Absent: rash - Neurological Neurological: Present: weakness. Absent: confusion, dizziness, focal weakness - Psychiatric Psychiatric: Present: abnormal sleep pattern, anxiety - Endocrine Endocrine: Absent: heat intolerance, palpitations - Hematologic/Lymphatic Hematologic/Lymphatic: Absent: easy bruising - Allergic/Immunologic Allergic/Immunologic: Absent: seasonal rhinorrhea Past Medical History Medical History Updates: Non-Hodgkins lymphoma - follows with Dr. Ace. Hypertension. Hyperlipidemia. CAD with prior CABG. Chronic kidney disease, stage III - average GFR ~50. GERD. History of PUD with bleeding ulcers requiring blood transfusions. Chronic anemia. Insomnia. Macular degeneration. History of UTI. Borderline personality disorder. Surgical History: CABG x 1 vessell. Port-a-cath in place. Appendectomy. Hysterectomy. Total right knee replacement. Tonsillectomy. Heart cath. Endoscopies. Family History: Mom - , 64, CVA, hypertension. Dad - , 81, reportedly "never sick". Sister - as an from pneumonia. Sister - , 74, CVA. Brother - , 79, CAD, cardiomegaly. Family History: As Above - Social History Smoking status: Never smoker Substance use type: does not use Alcohol intake frequency: does not drink Housing: other ([facility] - independent living) Household members: none Current occupational status: retired Does patient use chewing tobacco?: No Current residence: Independent Living ([facility]) Medications Home Medications Medication Instructions Recorded Confirmed Type Simvastatin 20 mg PO HS #0 05/22/11 03/26/18 History Potassium Chloride 40 meq PO DAILY #0 05/26/13 03/26/18 History Omeprazole Magnesium [Prilosec Otc] 20 mg PO BID #0 tab 09/19/15 03/26/18 History Mv-Min/FA/Vit K/Lycop/Lut/Zeax 1 tab PO DAILY #0 12/17/16 03/26/18 History [Ocuvite Eye Plus Multi Tablet] Acetaminophen 325 - 650 mg PO TID PRN 02/26/18 03/26/18 History Acetaminophen [Non-Aspirin Pain 500 mg PO BID 02/26/18 03/26/18 History Relief] Carboxymethylcellulose O/S 1 drop OP DAILY 02/26/18 03/26/18 History [Refresh Celluvisc] Cholecalciferol (Vitamin D3) 4,000 unit PO DAILY 02/26/18 03/26/18 History [Vitamin D3] CloNIDine [Catapres] 0.1 mg PO BID 02/26/18 03/26/18 History Folic Acid [Folate] 1 mg PO DAILY 02/26/18 03/26/18 History Furosemide [Lasix 40 mg Tab] 40 mg PO DAILY 02/26/18 03/26/18 History Loperamide HCl [Imodium A-D] 2 mg PO PRN PRN 02/26/18 03/26/18 History Losartan [Cozaar] 100 mg PO DAILY 02/26/18 03/26/18 History Melatonin/Pyridoxine HCl (B6) 2 mg PO HS 02/26/18 03/26/18 History [Melatonin 1 mg Tablet] Metoprolol Tartrate [Lopressor] 50 mg PO BIDWM 02/26/18 03/26/18 History Mirtazapine [Remeron] 15 mg PO HS 02/26/18 03/26/18 History PEG 3350 17gm PACKET [Miralax] 17 gm PO DAILY PRN 02/26/18 03/26/18 History Sucralfate [Carafate] 1 gm PO QID 02/26/18 03/26/18 History Trazodone [Desyrel] 100 mg PO HS 02/26/18 03/26/18 History Cyanocobalamin (Vitamin B-12) 2,000 mcg PO DAILY 03/26/18 03/26/18 History [Vitamin B-12] Mag Carb/Aluminum Hydrox/Algin 15 - 30 ml PO QID PRN 03/26/18 03/26/18 History [Gaviscon Extra Strength Liquid] Omeprazole 20 mg PO BID PRN 03/26/18 03/26/18 History Ondansetron HCl 2 mg PO Q4H PRN 03/26/18 03/26/18 History Allergies Allergy/AdvReac Type Severity Reaction Status Date / Time Sulfa (Sulfonamide Allergy Intermediate HIVES Verified 03/26/18 09:21 Antibiotics) iron Allergy Unknown Verified 03/26/18 09:21 hydrocodone AdvReac Mild N&V Verified 03/26/18 09:21 meperidine AdvReac Mild N & V Verified 03/26/18 09:21 morphine AdvReac Mild N&V Verified 03/09/18 12:05 codeine AdvReac Unknown N/V Verified 03/26/18 09:21 PRESERVATIVE FREE Allergy Unknown Uncoded 03/09/18 12:05 Exam Vital Signs: Temperature 96.1 F L 03/26/18 10:46 Pulse Rate 71 03/26/18 12:33 Respiratory Rate 22 03/26/18 12:33 Blood Pressure 158/81 H 03/26/18 12:33 Pulse Oximetry 93 03/26/18 12:33 Height/Weight/BMI: Height 5 ft 1 in Weight 149 lb 11.102 oz Body Mass Index 28.3 Comments: Patient is resting in bed with daughter at bedside. - Constitutional Present: no acute distress, well nourished, well developed, cooperative Comments: Poor historian at time. - Routine HEENT Exam Head: Present: normocephalic, atraumatic Eye: Present: PERRL. Absent: conjunctival icterus ENT: Present: mucous membranes moist, oropharynx clear - Routine Neck Exam Present: supple, trachea midline - Routine Chest/Breast/Axilla Exam Chest wall: Absent: tenderness, pacemaker - Routine Respiratory Exam Present: decreased breath sounds, crackles Comments: Decreased breath sounds bilaterally with crackles noted. No cough on exam. Breathing easily on 2-3L NC. - Routine Cardiovascular Exam Present: RRR - Routine Abdominal Exam Present: soft, normoactive bowel sounds, non distended, non tender - Routine Extremities Exam Present: edema (trace - 1+), full ROM, pulses intact, normal capillary refill - Routine Back/Spine/Pelvis Exam Back/Spine: Present: full ROM. Absent: vertebral tenderness - Routine Skin Exam Present: intact, dry, warm Comments: afebrile - Routine Neurological Exam Present: alert, moving all extremities, hearing grossly intact, normal speech - Routine Psychiatric Exam Present: cooperative Results - Labs CBC & Chem 7: 03/26/18 08:46 03/26/18 08:46 Assessment and Plan Assessment and Plan: Assessment Respiratory failure with hypoxia (POA) Pulmonary edema Uncontrolled hypertension (POA) Fluid overload. Hypernatremia (POA) Hypokalemia (POA) Hypomagnesemia (POA) Non-Hodgkins lymphoma - follows with Dr. Aec Hypertension Hyperlipidemia CAD with prior CABG Chronic kidney disease, stage III - average GFR ~50 GERD History of PUD with bleeding ulcers requiring blood transfusions Chronic anemia Insomnia Macular degeneration History of UTI Borderline personality disorder Gen debility secondary to declining cardiopulmonary status. Plan Admit patient to inpatient status under the care of Dr. Chun. Consult Dr. Eubanks given her pulmonary edema and significant cardiac history with recent medication changes. Given her pulmonary edema and hypoxia, she was given Lasix 40mg IV x 1 dose in ED with KCl. Will discuss continuation of diuresis with Dr. Olivas. Continue KCl 40 mEq po TID WM given her hypokalemia on admission. Follow closely. Monitor closely on telemetry with continuous pulse oximetry given her hypoxia and significant cardiac history. Patient does not use oxygen at home. Family reports yearly echocardiograms with Dr. Eubanks, though results are unknown and no known history of CHF. Monitor renal function closely - SCr 0.9 with GFR 60 on admission. Dry weight reportedly around 136 lbs. Weight in ED today was 152. Monitor daily weights closely. Espino catheter placed to monitor I&O closely. Recheck labs in AM to monitor blood counts, electrolytes and renal function. Upon discharge, will return care to Dr. Mayes. Patient is a DNR. DVT Prophylaxis: SCD's GI Prophylaxis: Omeprazole Resuscitation Status: Do Not Resuscitate - Time spent with patient Time with patient PN: 70 minutes - Physician Narrative Physician: Allan Chun MD Narrative: Date: 03/26/18 Time: 1542 Have independently interviewed and examined pt. Chart reviewed. Case discussed with ED physician and my ELECTROSTATIC POWDER COATING TECHNICIAN. Care plan developed with my supervision; agree with above. Presents to ED secondary to increasing SOA and fatigue. Gets winded with any activity. Harder to be active and functional. Dry cough, no sputum. Not having chest pressure, pain, or palpitations. Recently had diuretics decreased - SOA increased gradually there after. Not as hungry. No nausea or ab pain. Lungs: decreased with bilaterally crackles CV: regular AB: soft nt/nd MSE: awake alert Plan: Inpatient admission for treatment for acute hypoxemia secondary to pulmonary edema. Lasix 40mg IVF q8 hours to help motivate fluid. Spironolactone 25mg x1 as potassium low. Replace potassium and magnesium. ARB to continue. Will consult with Dr Eubanks (her support analyst) to assist in cardiac treatment. Serial enzymes to exclude AMI as cause of declining cardiac status. Monitor lab. DNR as per her requests. Care to return to Dr Mayes at time of discharge from [facility]. Hospital Course Summary Disclaimer: The visit summary below is not to be considered part of the above Progress Note. Hospital Course: 03/26/18 Admit patient to inpatient status under the care of Dr. Chun. Consult Dr. Eubanks given her pulmonary edema and significant cardiac history with recent medication changes. Given her pulmonary edema and hypoxia, she was given Lasix 40mg IV x 1 dose in ED with KCl. Continue 40mg IV q 8 hours. Continue KCl 40 mEq po TID WM given her hypokalemia on admission. Follow closely. Spironolactone 25mg x1. Monitor closely on telemetry with continuous pulse oximetry given her hypoxia and significant cardiac history. Patient does not use oxygen at home. Family reports yearly echocardiograms with Dr. Eubanks, though results are unknown and no known history of CHF. Monitor renal function closely - SCr 0.9 with GFR 60 on admission. Dry weight reportedly around 136 lbs. Weight in ED today was 152. Monitor daily weights closely. Espino catheter placed to monitor I&O closely. Recheck labs in AM to monitor blood counts, electrolytes and renal function. Patient is a DNR. Upon discharge, will return care to Dr. Mayes.
[2018-03-26] MEDS ORDERED: SPIRONOLACTONE 25 MG TABLET PO ONE (14:30)
[2018-03-26] MEDS: MAGNESIUM OXIDE 400 MG TABLET PO SCH ×3 (17:21→17:24)
[2018-03-26] MEDS: FUROSEMIDE 40 MG/4 ML INJECTION IVP SCH (17:21)
[2018-03-26] MEDS: SALINE FLUSH 10ml SYRINGE IVF PRN ×2 (17:22→20:20)
[2018-03-26] MEDS: SUCRALFATE 1 GM TABLET PO SCH ×2 (17:22→20:20)
[2018-03-26] MEDS: OMEPRAZOLE 20 MG CAPSULE PO SCH (20:19)
[2018-03-26] MEDS: TRAZODONE 100 MG TABLET PO SCH (20:20)
[2018-03-26] MEDS: SIMVASTATIN 20 MG TABLET PO SCH (20:20)
[2018-03-26] MEDS: MIRTAZAPINE 15 MG TABLET PO SCH (20:20)
[2018-03-27] MEDS: FUROSEMIDE 40 MG/4 ML INJECTION IVP SCH ×3 (01:45→17:37)
[2018-03-27] MEDS: SALINE FLUSH 10ml SYRINGE IVF PRN ×3 (01:45→09:19)
[2018-03-27] MEDS: OMEPRAZOLE 20 MG CAPSULE PO SCH ×2 (05:38→20:09)
[2018-03-27] MEDS: SUCRALFATE 1 GM TABLET PO SCH ×4 (05:39→20:09)
[2018-03-27] MEDS: MAGNESIUM OXIDE 400 MG TABLET PO SCH ×2 (09:17→17:37)
[2018-03-27] MEDS: REFRESH CELLUVISC 1% Eye Drops 0.4ml RIGHT EYE SCH (09:17)
[2018-03-27] MEDS: LOSARTAN 100 MG TABLET PO SCH (09:17)
[2018-03-27] MEDS: CYANOCOBALAMIN (B-12) 500mcg TABLET PO SCH (09:18)
[2018-03-27] MEDS: FOLIC ACID 1 MG TABLET PO SCH (09:18)
--- NOTE | 2018-03-27 11:14 | Progress Note ---
- Date 03/27/18 Subjective: F/U: Respiratory failure with hypoxia, Pulmonary edema Doing much better today. Breathing easier - not SOA or congested. Able to be weaned off O2. Did ambulated in halls with nursing (without O2) without problems. Feels strength increasing. No n/v or ab pain; appetite improved. Not having f/c. Did NOT tolerate SCD last night-squeezing kept waking her up. Objective Vital signs: Temperature 97.6 F 03/27/18 07:46 Pulse Rate 64 03/27/18 07:46 Respiratory Rate 12 03/27/18 07:46 Blood Pressure 145/72 H 03/27/18 07:46 Pulse Oximetry 94 03/27/18 10:16 Height/Weight/BMI: Height 1.55 m Weight 65.4 kg Body Mass Index 28.3 - Constitutional Present: well nourished, well developed, average body habitus, cooperative - Routine HEENT Exam Head: Present: normocephalic, atraumatic Eye: Present: EOMI, PERRL, normal accommodation ENT: Present: mucous membranes moist - Routine Respiratory Exam Present: decreased breath sounds, crackles (Rare-much decreased from yesterday ) . Absent: respiratory distress, wheezes - Routine Cardiovascular Exam Present: RRR, no murmur - Routine Abdominal Exam Present: soft, normoactive bowel sounds, non distended, non tender - Routine Extremities Exam Present: edema (Trace), pulses intact. Absent: cyanosis, clubbing - Routine Musculoskeletal Exam Musculoskeletal: Present: no clubbing or cyanosis - Routine Skin Exam Present: dry, warm - Routine Neurological Exam Present: alert, oriented X3, CN II-XII intact, moving all extremities, vision grossly intact, hearing grossly intact, normal speech. Absent: motor deficit, altered mental status - Routine Psychiatric Exam Present: normal affect, normal thought process, cooperative Results - Labs CBC & Chem 7: 03/27/18 04:56 03/27/18 04:56 Assessment and Plan (1) Pulmonary edema Current visit: Yes Status: Acute (2) Respiratory failure with hypoxia Current visit: Yes Status: Acute (3) Fluid overload, unspecified Current visit: Yes Status: Acute Assessment and Plan: Assessment Respiratory failure with hypoxia (POA) Pulmonary edema Uncontrolled hypertension (POA) Fluid overload Hypernatremia (POA) Hypokalemia (POA) Hypomagnesemia (POA) Non-Hodgkins lymphoma - follows with Dr. Ace Hypertension Hyperlipidemia CAD with prior CABG Chronic kidney disease, stage III - average GFR ~50 GERD History of PUD with bleeding ulcers requiring blood transfusions Chronic anemia Insomnia Macular degeneration History of UTI Borderline personality disorder Gen debility secondary to declining cardiopulmonary status. Plan Clinically improving - O2 needs resolved. Net output 270 yesterday with 1700 today so far. Weight decreased to 143.88 pounds. Creatinine stable at 0.9 with BUN 10. Potassium improved to 3.6 but Mg still low at 1.3. Will continue with Lasix 40mg IV q8 hours - likely able to decrease tomorrow. MagOx 400mg BID initiated - will give extra dose today at noon. Continue Potassium 40mEq TID with meal - will need to decrease dose/frequency as potassium increases and diuretics decreased. Change SCD to SQ Lovenox as patient having tolerability problems with SCD ( interrupting sleep). PT/OT eval tomorrow to help increase functional status. Recheck BMP and Mg in am secondary to diuretics. Will recheck CBC in am due to Lovenox use. Case discussed with Nursing and Family. Time spent with patient care 35 minutes. DVT Prophylaxis: SCD's GI Prophylaxis: Omeprazole Resuscitation Status: Do Not Resuscitate - Time spent with patient Time with patient PN: 35 minutes - Physician Narrative Physician: Allan Chun MD Narrative: Date: 03/27/18 Time: 1111 Hospital Course Summary Disclaimer: The visit summary below is not to be considered part of the above Progress Note. Hospital Course: 03/26/18 Admit patient to inpatient status under the care of Dr. Chun. Consult Dr. Eubanks given her pulmonary edema and significant cardiac history with recent medication changes. Given her pulmonary edema and hypoxia, she was given Lasix 40mg IV x 1 dose in ED with KCl. Continue 40mg IV q 8 hours. Continue KCl 40 mEq po TID WM given her hypokalemia on admission. Follow closely. Spironolactone 25mg x1. Monitor closely on telemetry with continuous pulse oximetry given her hypoxia and significant cardiac history. Patient does not use oxygen at home. Family reports yearly echocardiograms with Dr. Eubanks, though results are unknown and no known history of CHF. Monitor renal function closely - SCr 0.9 with GFR 60 on admission. Dry weight reportedly around 136 lbs. Weight in ED today was 152. Monitor daily weights closely. Espino catheter placed to monitor I&O closely. Recheck labs in AM to monitor blood counts, electrolytes and renal function. Patient is a DNR. Upon discharge, will return care to Dr. Mayes. 03/27/18 Clinically improving - O2 needs resolved. Net output 270 yesterday with 1700 today so far. Weight decreased to 143.88 pounds. Creatinine stable at 0.9 with BUN 10. Potassium improved to 3.6 but Mg still low at 1.3. Will continue with Lasix 40mg IV q8 hours - likely able to decrease tomorrow. MagOx 400mg BID initiated - will give extra dose today at noon. Continue Potassium 40mEq TID with meal - will need to decrease dose/frequency as potassium increases and diuretics decreased. Change SCD to SQ Lovenox as patient having tolerability problems with SCD ( interrupting sleep). PT/OT eval tomorrow to help increase functional status.
[2018-03-27] MEDS ORDERED: MAGNESIUM OXIDE 400 MG TABLET PO ONE (12:00)
--- NOTE | 2018-03-27 13:14 | XRay Report ---
Indication: sob PROCEDURE: XR chest 1V: Encounter: Initial Comparison: November 01, 2017 Findings: New severe pulmonary edema with associated small effusions. Lower lobe airspace consolidation. No pneumothorax. Heart size and mediastinal contours are stable. Prior CABG. Right IJ port catheter. Impression: New severe pulmonary edema, likely due to CHF. .
--- NOTE | 2018-03-27 19:26 | Cardiology Consult Note ---
<Lucille Cabrera - Last Filed: 03/28/18 14:29> History of Present Illness Consult date: 03/27/18 Requesting physician: Allan Chun Consult reason: congestive heart failure Chief complaint: SOB, edema, orthopnea History of present illness: This is an 87 year old patient known to Dr. Eubanks for CAD, Hx CABG in 2000, HTN, DSLD, hypothyroidism, CKD, NHL. Most information from notes. She saw Dr. Huntley, her PCP who based on her labs decreased her lasix and BP meds. On 03/09/[address] Sood, covering for Dr. Eubanks and was informed her echo looked good and no medication changes were made. Apparently, after seeing Dr. Sood , pt was contacted by Dr. Mayes and was instructed to to have an IV infusion of 1 liter NS which she received on 03/09/2018. Since then she has had progressive SOB, LAIRD, swelling in legs, and weight gain. Stating her legs feel heavy. More recently she has not been able to lie down for long due to SOB. She lives in assisted living in [facility] and on day of admit she asked the aide to call her daughter because she could not catch her breath. Her daughter brought her into [facility] where she was found to be hypoxic with O2 sat 78%. She was placed on O2 and sats came up to the 90's. ECG showed no acute ischemia. Trop neg, CXR report: severe edema, BNP 3560. BP 228/105. In ER she was given breathing treatment, lasix 40mg IV, KCL, and Clonidine. She was admitted under Dr. Chun who has given her lasix for good diuresis and treated her BP. Dr. Eubanks was consulted for CHF. currently she is lying bed bed almost flat. She states she feels better with less SOB and swelling in legs. 03/09/2018 echo: EF 55%, NWMA, LVH, Basal REI, TSMM, No LVOT obstruction, LVDD grade1, mild LAE, AoV sclerosis, MAC, trace MR, mild TR, [id number], trace PI. Review of Systems - Constitutional Constitutional: Present: weakness, weight gain. Absent: chills, fever(s) - EENMT Eyes: Absent: change in vision Mouth/Throat: Absent: sore throat - Cardiovascular Cardiovascular: Present: dyspnea on exertion, orthopnea, edema. Absent: chest pain, palpitations, syncope Rhythm: Present: regular rhythm Vascular: Present: pedal edema - Respiratory Respiratory: Present: dyspnea on exertion, chest congestion. Absent: cough - Gastrointestinal Gastrointestinal: Absent: abdominal pain, melena, nausea - Genitourinary Genitourinary: Absent: dysuria - Musculoskeletal Musculoskeletal: Present: other (legs were weak and heavy) - Integumentary/Breasts Integumentary: Absent: wounds - Neurological Neurological: Present: memory loss (some). Absent: dizziness - Psychiatric Psychiatric: Present: depression (some over loss of her husban ). Absent: anxiety - Endocrine Endocrine: Absent: palpitations - Hematologic/Lymphatic Hematologic/Lymphatic: Absent: easy bleeding PFSH Patient Stated Medical History Macular Degeneration Yes Coronary Artery Disease Yes Hypertension Yes Gastroesophageal Reflux Yes Disease Ulcer Yes Hx Urinary Tract Infection Yes Other Yes: STAGE 3 CKD Blood Transfusions Yes Other Behavioral Health Yes: BORDERLINE PERSONALITY DISORDER Medical History Updates: Non-Hodgkins lymphoma - follows with Dr. Ace. Hypertension. Hyperlipidemia. CAD with prior CABG. Chronic kidney disease, stage III - average GFR ~50. GERD. History of PUD with bleeding ulcers requiring blood transfusions. Chronic anemia. Insomnia. Macular degeneration. History of UTI. Borderline personality disorder. Surgical History: EGD, total knee replacement Family History: Mom - , 64, CVA, hypertension. Dad - , 81, reportedly "never sick". Sister - as an from pneumonia. Sister - , 74, CVA. Brother - , 79, CAD, cardiomegaly. - Social History Smoking status: Never smoker Substance use type: does not use Alcohol intake frequency: does not drink Housing: other ([facility] - independent living) Household members: none Current occupational status: retired Does patient use chewing tobacco?: No Current residence: Independent Living ([facility]) Medications Home Medications Medication Instructions Recorded Confirmed Type Simvastatin 20 mg PO HS #0 05/22/11 03/26/18 History Potassium Chloride 40 meq PO DAILY #0 05/26/13 03/26/18 History Omeprazole Magnesium [Prilosec Otc] 20 mg PO BID #0 tab 09/19/15 03/26/18 History Mv-Min/FA/Vit K/Lycop/Lut/Zeax 1 tab PO DAILY #0 12/17/16 03/26/18 History [Ocuvite Eye Plus Multi Tablet] Acetaminophen 325 - 650 mg PO TID PRN 02/26/18 03/26/18 History Acetaminophen [Non-Aspirin Pain 500 mg PO BID 02/26/18 03/26/18 History Relief] Carboxymethylcellulose O/S 1 drop OP DAILY 02/26/18 03/26/18 History [Refresh Celluvisc] Cholecalciferol (Vitamin D3) 4,000 unit PO DAILY 02/26/18 03/26/18 History [Vitamin D3] CloNIDine [Catapres] 0.1 mg PO BID 02/26/18 03/26/18 History Folic Acid [Folate] 1 mg PO DAILY 02/26/18 03/26/18 History Furosemide [Lasix 40 mg Tab] 40 mg PO DAILY 02/26/18 03/26/18 History Loperamide HCl [Imodium A-D] 2 mg PO PRN PRN 02/26/18 03/26/18 History Losartan [Cozaar] 100 mg PO DAILY 02/26/18 03/26/18 History Melatonin/Pyridoxine HCl (B6) 2 mg PO HS 02/26/18 03/26/18 History [Melatonin 1 mg Tablet] Metoprolol Tartrate [Lopressor] 50 mg PO BIDWM 02/26/18 03/26/18 History Mirtazapine [Remeron] 15 mg PO HS 02/26/18 03/26/18 History PEG 3350 17gm PACKET [Miralax] 17 gm PO DAILY PRN 02/26/18 03/26/18 History Sucralfate [Carafate] 1 gm PO QID 02/26/18 03/26/18 History Trazodone [Desyrel] 100 mg PO HS 02/26/18 03/26/18 History Cyanocobalamin (Vitamin B-12) 2,000 mcg PO DAILY 03/26/18 03/26/18 History [Vitamin B-12] Mag Carb/Aluminum Hydrox/Algin 15 - 30 ml PO QID PRN 03/26/18 03/26/18 History [Gaviscon Extra Strength Liquid] Omeprazole 20 mg PO BID PRN 03/26/18 03/26/18 History Ondansetron HCl 2 mg PO Q4H PRN 03/26/18 03/26/18 History Nystatin Powder [Mycostatin] 1 applicatio TP BID #1 bottle 04/01/18 Rx Allergies Allergy/AdvReac Type Severity Reaction Status Date / Time Sulfa (Sulfonamide Allergy Intermediate HIVES Verified 03/26/18 09:21 Antibiotics) iron Allergy Unknown Verified 03/26/18 09:21 hydrocodone AdvReac Mild N&V Verified 03/26/18 09:21 meperidine AdvReac Mild N & V Verified 03/26/18 09:21 morphine AdvReac Mild N&V Verified 03/09/18 12:05 codeine AdvReac Unknown N/V Verified 03/26/18 09:21 PRESERVATIVE FREE Allergy Unknown Uncoded 03/09/18 12:05 Exam Vital signs: Temperature 97.2 F 03/27/18 19:11 Pulse Rate 70 03/27/18 19:11 Respiratory Rate 24 03/27/18 19:11 Blood Pressure 133/76 03/27/18 19:11 Pulse Oximetry 92 03/27/18 19:11 - Constitutional no acute distress, well nourished, cooperative - Routine HEENT Exam Head: Present: normocephalic, atraumatic Eye: Present: conjunctivae pink Nose: moist mucous membranes - Routine Neck Exam Present: JVD (small) - Routine Chest/Breast/Axilla Exam Comments: Port-a-cath right upper chest from chemo treatments in past for NHL. - Routine Respiratory Exam Present: crackles (in bases) - Routine Cardiovascular Exam Present: RRR - Routine Abdominal Exam Present: soft, non tender - Routine Extremities Exam Present: edema (mild), pulses intact. Absent: cyanosis - Routine Skin Exam Present: intact, dry, normal turgor - Routine Neurological Exam Present: alert, oriented X3, vision grossly intact, hearing grossly intact, normal speech - Routine Psychiatric Exam Present: normal affect, normal thought process, cooperative Results 03/28/18 04:10 03/28/18 04:10 CBC 03/27/18 Range/Units 04:56 WBC 5.1 (4.5-11.0) T/MM3 RBC 3.40 L (4.00-5.20) M/MM3 Hgb 10.1 L (12-16) GM/DL Hct 31.5 L (36-46) % Plt Count 146 (130-400) T/MM3 Neut # (Auto) 3.1 (1.8-7.7) T/MM3 Lymph # (Auto) 1.3 (1-4.8) T/MM3 [place] # (Auto) 0.6 (0-0.8) T/MM3 Eos # (Auto) 0.1 (0-0.5) T/MM3 Baso # (Auto) 0.0 (0-0.2) T/MM3 Comprehensive Metabolic Panel 03/27/18 Range/Units 04:56 Sodium 146 (136-146) MEQ/L Potassium 3.6 D (3.6-5) MEQ/L Chloride 103 D (98-107) MEQ/L Carbon Dioxide 33 H (22-30) MEQ/L BUN 10.0 (7-17) MG/DL Creatinine 0.9 (0.7-1.2) mg/dL Glucose 98 (65-110) MG/DL Calcium 8.7 (8.4-10.2) MG/DL BNP 3560 Trop neg Intake and Output 03/27/18 03/27/18 03/27/18 06:59 14:59 22:59 Intake Total 1150 / 1150 190 / 190 Output Total 1750 / 1750 1200 / 1200 Balance -1750 / -1750 -50 / -50 190 / 190 Intake: Oral 1150 / 1150 190 / 190 Output: Urine Amount (Catheter) 1750 / 1750 1200 / 1200 Other: Urine Appearance Clear Clear Clear Urine Color Pale Pale Pale Yellow Yellow Urine Odor Normal Weight 144 lb 2.917 oz 149 lb 11.102 oz Patient Weight 03/28/18 06:59 Weight 149 lb 11.102 oz - Imaging and Cardiology Echo: other (02/2018 echo: EF 55%, DD grade1. ) Imaging & Cardiology Narrative: 03/26/2018 CXR Findings: New severe pulmonary edema with associated small effusions. Lower lobe airspace consolidation. No pneumothorax. Heart size and mediastinal contours are stable. Prior CABG. Right IJ port catheter. Impression: New severe pulmonary edema, likely due to CHF 03/28/18 14:13 Active meds: Acetaminophen (Tylenol) 650 mg PO Q5H PRN PRN Reason: Discomfort Artificial Tears (Refresh Celluvisc) 1 drop RIGHT EYE DAILY [facility] Last Admin: 03/28/18 09:33 Dose: 1 drop Cholecalciferol (Vit. D-3) 4,000 unit PO DAILY [facility] Last Admin: 03/28/18 09:29 Dose: 4,000 unit Clonidine HCl (Catapres) 0.1 mg PO BID [facility] Last Admin: 03/28/18 09:31 Dose: 0.1 mg Cyanocobalamin (Vit. B-12) 2,000 mcg PO DAILY [facility] Last Admin: 03/28/18 09:29 Dose: 2,000 mcg Folic Acid (Folate) 1 mg PO DAILY [facility] Last Admin: 03/28/18 09:31 Dose: 1 mg Furosemide (Lasix 40 Mg Tab) 40 mg IV q 8hr Lorazepam (Ativan Inj) 0.25 mg IVP Q6H PRN PRN Reason: Anxiety Losartan Potassium (Cozaar) 100 mg PO DAILY [facility] Last Admin: 03/28/18 09:31 Dose: 100 mg Magnesium Oxide (Magox) 400 mg PO BIDWM [facility] Last Admin: 03/28/18 09:31 Dose: 400 mg Metoprolol Tartrate (Lopressor) 50 mg PO BIDWM [facility] Last Admin: 03/28/18 09:31 Dose: 50 mg Mirtazapine (Remeron) 15 mg PO HS [facility] Last Admin: 03/27/18 20:08 Dose: 15 mg Omeprazole (Prilosec) 20 mg PO BID/E [facility] Last Admin: 03/28/18 06:42 Dose: 20 mg Ondansetron HCl (Zofran) 4 mg IVP Q6H PRN PRN Reason: Nausea &/or vomiting Polyethylene Glycol (Miralax) 17 gm PO DAILY PRN PRN Reason: Constipation Potassium Chloride (K-Dur 20 Meq Tablet) 40 meq PO WB [facility] Simvastatin (Zocor) 20 mg PO HS [facility] Last Admin: 03/27/18 20:09 Dose: 20 mg Sodium Chloride (Iv Flush) 10 - 80 ml IVF PRN PRN PRN Reason: Flushing Last Admin: 03/28/18 04:15 Dose: 30 ml Sucralfate (Carafate) 1 gm PO ACHS [facility] Last Admin: 03/28/18 11:49 Dose: 1 gm Trazodone HCl (Desyrel) 100 mg PO HS [facility] Last Admin: 03/27/18 20:09 Dose: 100 mg - EKG Interpretation EKG: sinus rhythm Assessment and Plan - Assessment and Plan (1) CHF (congestive heart failure) Status: Acute - Assessment and Plan Acute diastolic heart failure - 03/09/2018 echo: EF 55%, NWMA, LVH, Basal REI, TSMM, No LVOT obstruction, LVDD grade1, mild LAE, AoV sclerosis, MAC, trace MR, mild TR, [id number], trace PI. - Symptoms of SOB, LAIRD, orthopnea, LAIRD - 03/26 CXR: severe pulmonary edema. BNP 3560. lungs with crackles. - Received lasix 40mg IV q 8hrs for good U/O > 4000 so far. Wt decreased. symptom improved. - agree with lasix, will monitor wts, I/O, lytes and renal function, Cr and BUN ok. Respiratory failure - now on room air CAD Hx CABG 2000 - start ASA. Not sure why she is not on statin. HTN - agree with metoprolol and losartan. and lasix. HypoK and Hypomag - replaced by attending. CKD - Cr wnl. has seen Dr. Reddy in the past. Hx NHL hypothyroidism DNR Dr. Eubanks did not see pt on this date, but agrees with plan of care. Hospital Course Summary Disclaimer: The visit summary below is not to be considered part of the above Progress Note. Hospital Course: 03/26/18 Admit patient to inpatient status under the care of Dr. Chun. Consult Dr. Eubanks given her pulmonary edema and significant cardiac history with recent medication changes. Given her pulmonary edema and hypoxia, she was given Lasix 40mg IV x 1 dose in ED with KCl. Continue 40mg IV q 8 hours. Continue KCl 40 mEq po TID WM given her hypokalemia on admission. Follow closely. Spironolactone 25mg x1. Monitor closely on telemetry with continuous pulse oximetry given her hypoxia and significant cardiac history. Patient does not use oxygen at home. Family reports yearly echocardiograms with Dr. Eubanks, though results are unknown and no known history of CHF. Monitor renal function closely - SCr 0.9 with GFR 60 on admission. Dry weight reportedly around 136 lbs. Weight in ED today was 152. Monitor daily weights closely. Espino catheter placed to monitor I&O closely. Recheck labs in AM to monitor blood counts, electrolytes and renal function. Patient is a DNR. Upon discharge, will return care to Dr. Mayes. 03/27/18 Clinically improving - O2 needs resolved. Net output 270 yesterday with 1700 today so far. Weight decreased to 143.88 pounds. Creatinine stable at 0.9 with BUN 10. Potassium improved to 3.6 but Mg still low at 1.3. Will continue with Lasix 40mg IV q8 hours - likely able to decrease tomorrow. MagOx 400mg BID initiated - will give extra dose today at noon. Continue Potassium 40mEq TID with meal - will need to decrease dose/frequency as potassium increases and diuretics decreased. Change SCD to SQ Lovenox as patient having tolerability problems with SCD ( interrupting sleep). PT/OT eval tomorrow to help increase functional status. <Geronimo Eubanks - Last Filed: 04/01/18 16:12> [facility] Patient Stated Medical History Macular Degeneration Yes Coronary Artery Disease Yes Hypertension Yes Gastroesophageal Reflux Yes Disease Ulcer Yes Hx Urinary Tract Infection Yes Other Yes: STAGE 3 CKD Blood Transfusions Yes Other Behavioral Health Yes: BORDERLINE PERSONALITY DISORDER Exam Vital signs: Temperature 96.8 F 04/01/18 07:35 Pulse Rate 80 04/01/18 08:45 Respiratory Rate 18 04/01/18 07:35 Blood Pressure 123/65 04/01/18 07:35 Pulse Oximetry 96 04/01/18 08:45 Results 03/30/18 04:56 04/01/18 04:51 Comprehensive Metabolic Panel 04/01/18 Range/Units 04:51 Sodium 145 (136-146) MEQ/L Potassium 3.9 (3.6-5) MEQ/L Chloride 104 (98-107) MEQ/L Carbon Dioxide 30 (22-30) MEQ/L BUN 29.0 H (7-17) MG/DL Creatinine 1.3 H D (0.7-1.2) mg/dL Glucose 97 (65-110) MG/DL Calcium 9.0 (8.4-10.2) MG/DL Intake and Output 04/01/18 04/01/18 04/01/18 06:59 14:59 22:59 Intake Total 550 / 550 Output Total 500 / 500 Balance 50 / 50 Intake: Oral 550 / 550 Output: Urine 500 / 500 Other: Urine Appearance Clear Urine Color Pale Urine Odor Normal Weight 62.2 kg Patient Weight 04/02/18 06:59 Weight 62.2 kg Assessment and Plan - Attestation Attestation Narrative: 04/01/18 16:12 Recommendation After examining the patient I agree with the above assessment. I am involved in the formulation of the patient's plan of care. - Assessment and Plan (1) CHF (congestive heart failure) Problem details: diastolic Status: Acute (2) CAD (coronary artery disease) Status: Chronic (3) Essential (primary) hypertension Status: Chronic (4) CKD (chronic kidney disease) Status: Chronic (5) Hypothyroidism Status: Chronic (6) Hypomagnesemia Status: Acute Hospital Course Summary Disclaimer: The visit summary below is not to be considered part of the above Progress Note.
[2018-03-27] MEDS: MIRTAZAPINE 15 MG TABLET PO SCH (20:08)
[2018-03-27] MEDS: TRAZODONE 100 MG TABLET PO SCH (20:09)
[2018-03-27] MEDS: SIMVASTATIN 20 MG TABLET PO SCH (20:09)
[2018-03-28] MEDS: FUROSEMIDE 40 MG/4 ML INJECTION IVP SCH ×2 (01:20→09:31)
[2018-03-28] MEDS: SALINE FLUSH 10ml SYRINGE IVF PRN (04:15)
[2018-03-28] MEDS: OMEPRAZOLE 20 MG CAPSULE PO SCH ×2 (06:42→21:26)
[2018-03-28] MEDS: SUCRALFATE 1 GM TABLET PO SCH ×4 (06:42→21:24)
--- NOTE | 2018-03-28 08:20 | XRay Report ---
Indication: F/U: Pulmonary edema PROCEDURE: XR chest 2V: Encounter: Initial Comparison: 07/05/2018 Findings: There are trace bilateral pleural effusions. Patient is status post median sternotomy. There is a right IJ port in place. No definite lobar consolidation. No definite mediastinal or hilar adenopathy. The trachea is midline. No significant tortuosity of the descending thoracic aorta. No subdiaphragmatic free air. Impression: Trace bilateral pleural effusions. No definite overt CHF. .
[2018-03-28] MEDS: CYANOCOBALAMIN (B-12) 500mcg TABLET PO SCH (09:29)
[2018-03-28] MEDS: FOLIC ACID 1 MG TABLET PO SCH (09:31)
[2018-03-28] MEDS: MAGNESIUM OXIDE 400 MG TABLET PO SCH ×2 (09:31→18:36)
[2018-03-28] MEDS: LOSARTAN 100 MG TABLET PO SCH (09:31)
[2018-03-28] MEDS: REFRESH CELLUVISC 1% Eye Drops 0.4ml RIGHT EYE SCH (09:33)
--- NOTE | 2018-03-28 12:05 | Progress Note ---
- Date 03/28/18 Subjective: Patient resting in bedside chair at the time of interview. Patient's daughter, Miss Grossman present at bedside. Serum potassium increased to 4.9 this morning. BUNs elevated at 23, serum creatinine 1.3 this morning when compared to 0.9 yesterday. Patient has -1.5 L fluid balance from yesterday and totally, -6 L fluid balance from admission. Repeat 2 view chest x-ray this morning shows resolution of pulmonary edema from exacerbation of CHF but does show small bilateral pleural effusion. Patient's blood pressure 89/54 this morning. We will hold clonidine dose this evening. We will switch oral Lasix 40 mg twice a day. We will switch oral potassium chloride 40 mEq daily from tomorrow morning. We will monitor renal function. No reported chest pain, no palpitations, no shortness of breath, no subjective fever, no chills. Objective Vital signs: Temperature 97.5 F 03/28/18 11:28 Pulse Rate 71 03/28/18 11:28 Respiratory Rate 16 03/28/18 11:28 Blood Pressure 89/54 03/28/18 11:28 Pulse Oximetry 2 L 03/28/18 11:28 Height/Weight/BMI: Height 1.55 m Weight 67.9 kg Body Mass Index 28.3 - Additional findings Additional findings: General: Alert, awake, oriented to self, place and person. Not in acute distress. Head: Atraumatic. Pupils equal, round, reactive to light and accommodation. Extraocular movements intact. Neck: No elevation in JVP. No pharyngeal erythema noted. Chest: The patient does not use accessory muscles for breathing. Lungs: Breath sounds audible on auscultation bilateral lung aguero. No wheezing , no rhonchi, no crepitations, no crackles. No pleural rub. CVS: S1, S2 heard on auscultation. Normal rate and rhythm. No murmur, no S3/S4 gallops. Abdomen: Soft, nontender, no distention. Bowel sounds appreciated on auscultation. Skin: No rashes, no induration, no erythema. Capillary refill less than 4 seconds. Extremities: No evidence of pedal edema bilateral lower extremities. No calf tenderness bilaterally. Palpable dorsalis pedis and posterior tibial pulses bilateral lower extremities. Results - Labs CBC & Chem 7: 03/28/18 04:10 03/28/18 04:10 - Impressions Two-view chest x-ray performed on 03/28/2018 Impression: Trace bilateral pleural effusions. No definite overt CHF. Assessment and Plan (1) Pulmonary edema Current visit: Yes Status: Acute (2) Respiratory failure with hypoxia Current visit: Yes Status: Acute (3) Fluid overload, unspecified Current visit: Yes Status: Acute Assessment and Plan: Assessment Respiratory failure with hypoxia (POA) Pulmonary edema Uncontrolled hypertension (POA) Fluid overload Hypernatremia (POA) Hypokalemia (POA) Hypomagnesemia (POA) Non-Hodgkins lymphoma - follows with Dr. Ace Hypertension Hyperlipidemia CAD with prior CABG Chronic kidney disease, stage III - average GFR ~50 GERD History of PUD with bleeding ulcers requiring blood transfusions Chronic anemia Insomnia Macular degeneration History of UTI Borderline personality disorder Gen debility secondary to declining cardiopulmonary status. Plan -6 L fluid balance since admission and -1.5 L fluid balance since yesterday. BNP 3560 on admission, will be rechecked tomorrow morning. BUN increased to 23, serum creatinine 1.3. Serum potassium elevated at 4.9. Stop IV Lasix. Patient started on oral Lasix 40 mg twice a day 9 AM and 5 PM. Will switch oral potassium chloride 40 mEq once daily. Patient evaluated by OT earlier today, recommendation for discharge back to assisted living facility. Awaiting PT eval report. Will continue home medication oral magnesium oxide 400 mg twice a day. Patient's blood pressure 89/54 this morning, likely secondary to diuresis leading to contraction alkalosis. Change in diuresis as described above. Clonidine dose held for today and will be restarted tomorrow morning. CBC, CMP reordered for tomorrow morning. DVT Prophylaxis: SCD's GI Prophylaxis: Omeprazole Resuscitation Status: Do Not Resuscitate - Time spent with patient Time with patient PN: 35 minutes - Physician Narrative Narrative: Date: 03/28/18 Time: 1202 Hospital Course Summary Disclaimer: The visit summary below is not to be considered part of the above Progress Note. Hospital Course: 03/26/18 Admit patient to inpatient status under the care of Dr. Chun. Consult Dr. Eubanks given her pulmonary edema and significant cardiac history with recent medication changes. Given her pulmonary edema and hypoxia, she was given Lasix 40mg IV x 1 dose in ED with KCl. Continue 40mg IV q 8 hours. Continue KCl 40 mEq po TID WM given her hypokalemia on admission. Follow closely. Spironolactone 25mg x1. Monitor closely on telemetry with continuous pulse oximetry given her hypoxia and significant cardiac history. Patient does not use oxygen at home. Family reports yearly echocardiograms with Dr. Eubanks, though results are unknown and no known history of CHF. Monitor renal function closely - SCr 0.9 with GFR 60 on admission. Dry weight reportedly around 136 lbs. Weight in ED today was 152. Monitor daily weights closely. Espino catheter placed to monitor I&O closely. Recheck labs in AM to monitor blood counts, electrolytes and renal function. Patient is a DNR. Upon discharge, will return care to Dr. Mayes. 03/27/18 Clinically improving - O2 needs resolved. Net output 270 yesterday with 1700 today so far. Weight decreased to 143.88 pounds. Creatinine stable at 0.9 with BUN 10. Potassium improved to 3.6 but Mg still low at 1.3. Will continue with Lasix 40mg IV q8 hours - likely able to decrease tomorrow. MagOx 400mg BID initiated - will give extra dose today at noon. Continue Potassium 40mEq TID with meal - will need to decrease dose/frequency as potassium increases and diuretics decreased. Change SCD to SQ Lovenox as patient having tolerability problems with SCD ( interrupting sleep). PT/OT eval tomorrow to help increase functional status. 03/28/2018 -6 L fluid balance since admission and -1.5 L fluid balance since yesterday. BNP 3560 on admission, will be rechecked tomorrow morning. BUN increased to 23, serum creatinine 1.3. Serum potassium elevated at 4.9. Stop IV Lasix. Patient started on oral Lasix 40 mg twice a day 9 AM and 5 PM. Will switch oral potassium chloride 40 mEq once daily. Patient evaluated by OT earlier today, recommendation for discharge back to assisted living facility. Awaiting PT eval report. Will continue home medication oral magnesium oxide 400 mg twice a day. Patient's blood pressure 89/54 this morning, likely secondary to diuresis leading to contraction alkalosis. Change in diuresis as described above. Clonidine dose held for today and will be restarted tomorrow morning. CBC, CMP reordered for tomorrow morning.
[2018-03-28 14:45] VITALS: BMI 27.1
[2018-03-28] MEDS ORDERED: PNEUMOCOCCAL 23 VACCINE 0.5ml INJECTION IM ONE (16:08)
--- NOTE | 2018-03-28 16:33 | Cardiology Progress Note ---
<Treasure Ortiz - Last Filed: 03/29/18 11:02> Subjective Principal diagnosis: chf Interval history: Holli is seen in follow up for pulmonary edema and heart failure. She states dyspnea continues to improve, remains on O2 at 2L/NC in no distress. She denies chest pain, pressure, dizziness, nausea. Exam Vital signs: Temperature 97.5 F 03/28/18 11:28 Pulse Rate 71 03/28/18 11:28 Respiratory Rate 16 03/28/18 11:28 Blood Pressure 89/54 03/28/18 11:28 Pulse Oximetry 93 03/28/18 16:06 Inpatient Medications: Generic Name Dose Route Start Last Admin Trade Name Freq PRN Reason Stop Dose Admin Acetaminophen 650 mg 03/26/18 12:10 Tylenol PO Q5H PRN Discomfort Artificial Tears 1 drop 03/27/18 09:00 03/28/18 09:33 Refresh Celluvisc RIGHT EYE 1 drop DAILY EMILEE Administration Cholecalciferol 4,000 unit 03/27/18 09:00 03/28/18 09:29 Vit. D-3 PO 4,000 unit DAILY EMILEE Administration Clonidine HCl 0.1 mg 03/26/18 21:00 03/28/18 09:31 Catapres PO 0.1 mg BID EMILEE Administration Cyanocobalamin 2,000 mcg 03/27/18 09:00 03/28/18 09:29 Vit. B-12 PO 2,000 mcg DAILY EMILEE Administration Folic Acid 1 mg 03/27/18 09:00 03/28/18 09:31 Folate PO 1 mg DAILY EMILEE Administration Furosemide 40 mg 03/28/18 17:00 Lasix 40 Mg Tab PO 0900,1700 EMILEE Lorazepam 0.25 mg 03/26/18 12:16 Ativan Inj IVP Q6H PRN Anxiety Losartan Potassium 100 mg 03/27/18 09:00 03/28/18 09:31 Cozaar PO 100 mg DAILY EMILEE Administration Magnesium Oxide 400 mg 03/26/18 16:00 03/28/18 09:31 Magox PO 400 mg BIDWM EMILEE Administration Metoprolol Tartrate 50 mg 03/26/18 17:30 03/28/18 09:31 Lopressor PO 50 mg BIDWM EMILEE Administration Mirtazapine 15 mg 03/26/18 21:00 03/27/18 20:08 Remeron PO 15 mg HS EMILEE Administration Omeprazole 20 mg 03/26/18 20:00 03/28/18 06:42 Prilosec PO 20 mg BID/E EMILEE Administration Ondansetron HCl 4 mg 03/26/18 12:10 Zofran IVP Q6H PRN Nausea &/or vomiting Polyethylene Glycol 17 gm 03/26/18 11:52 Miralax PO DAILY PRN Constipation Potassium Chloride 40 meq 03/29/18 08:00 K-Dur 20 Meq Tablet PO WB EMILEE Simvastatin 20 mg 03/26/18 21:00 03/27/18 20:09 Zocor PO 20 mg HS EMILEE Administration Sodium Chloride 10 - 80 ml 03/26/18 08:25 03/28/18 04:15 Iv Flush IVF 30 ml PRN PRN Administration Flushing Sucralfate 1 gm 03/26/18 17:00 03/28/18 11:49 Carafate PO 1 gm ACHS EMILEE Administration Trazodone HCl 100 mg 03/26/18 21:00 03/27/18 20:09 Desyrel PO 100 mg HS EMILEE Administration Discontinued Medications Generic Name Dose Route Start Last Admin Trade Name Freq PRN Reason Stop Dose Admin Albuterol/Ipratropium 3 ml 03/26/18 09:00 03/26/18 09:23 Duoneb AEROSOL 03/26/18 09:01 3 ml O ONE Administration Clonidine HCl 0.1 mg 03/26/18 09:11 03/26/18 09:20 Catapres PO 03/26/18 09:12 0.1 mg O ONE Administration Clonidine HCl 0.1 mg 03/26/18 16:06 03/26/18 17:21 Catapres PO 03/26/18 16:07 0.1 mg ONE TIME ONE Administration Furosemide 40 mg 03/26/18 09:58 03/26/18 10:33 Lasix 40 Mg/4 Ml IVP 03/26/18 09:59 40 mg O ONE Administration Furosemide 40 mg 03/26/18 17:00 03/28/18 09:31 Lasix 40 Mg/4 Ml IVP 40 mg Q8HR EMILEE Administration Magnesium Oxide 400 mg 03/27/18 12:00 03/27/18 11:29 Magox PO 03/27/18 12:01 400 mg O ONE Administration Pneumococcal Polyvalent Vaccine 0.5 ml 03/28/18 16:08 Pneumovax 23 IM 03/28/18 16:09 .ONCE ONE Potassium Chloride 40 meq 03/26/18 09:36 03/26/18 09:47 K-Dur 20 Meq Tablet PO 03/26/18 09:37 40 meq O ONE Administration Potassium Chloride 40 meq 03/26/18 12:00 03/28/18 11:49 K-Dur 20 Meq Tablet PO 40 meq TIDWM EMILEE Administration Spironolactone 25 mg 03/26/18 14:30 03/26/18 14:47 Aldactone 25 Mg PO 03/26/18 14:31 25 mg ONE TIME ONE Administration - Constitutional no acute distress, well nourished, cooperative - Routine HEENT Exam Head: Present: normocephalic ENT: Present: mucous membranes moist - Routine Neck Exam Present: JVD. Absent: carotid bruit - Routine Chest/Breast/Axilla Exam Chest wall: Absent: tenderness - Routine Respiratory Exam Present: rales (bibasilar). Absent: dyspnea, CTA bilaterally - Routine Cardiovascular Exam Present: RRR, S1, S2, no murmur - Routine Abdominal Exam Present: soft, non tender - Routine Extremities Exam Present: edema - Routine Skin Exam Present: intact, dry, warm - Routine Neurological Exam Present: alert, oriented X3 - Routine Psychiatric Exam Present: normal affect, normal thought process - Urinary Catheter Management Urethral Cath placed during this visit: yes Insertion date: 03/26/18 Insertion time: 12:24 Results 03/29/18 04:08 03/29/18 04:08 CBC 03/28/18 Range/Units 04:10 WBC 5.5 (4.5-11.0) T/MM3 RBC 3.93 L (4.00-5.20) M/MM3 Hgb 11.5 L D (12-16) GM/DL Hct 36.4 D (36-46) % Plt Count 176 (130-400) T/MM3 Neut # (Auto) 3.0 (1.8-7.7) T/MM3 Lymph # (Auto) 1.7 (1-4.8) T/MM3 Warren # (Auto) 0.7 (0-0.8) T/MM3 Eos # (Auto) 0.1 (0-0.5) T/MM3 Baso # (Auto) 0.0 (0-0.2) T/MM3 Comprehensive Metabolic Panel 03/28/18 Range/Units 04:10 Sodium 144 (136-146) MEQ/L Potassium 4.9 D (3.6-5) MEQ/L Chloride 98 (98-107) MEQ/L Carbon Dioxide 35 H (22-30) MEQ/L BUN 23.0 H D (7-17) MG/DL Creatinine 1.3 H D (0.7-1.2) mg/dL Glucose 102 (65-110) MG/DL Calcium 9.6 D (8.4-10.2) MG/DL Intake and Output 03/28/18 03/28/18 03/28/18 06:59 14:59 22:59 Intake Total 400 / 400 400 / 400 Output Total 1800 / 1800 Balance -1400 / -1400 400 / 400 Intake: Oral 400 / 400 400 / 400 Output: Urine Amount (Catheter) 1800 / 1800 Other: Urine Appearance Clear Urine Color Pale Yellow Urine Odor Normal Weight 143 lb 4.807 oz Patient Weight 03/29/18 06:59 Weight 143 lb 4.807 oz - Imaging and Cardiology Imaging & Cardiology Narrative: Date of Exam: 03/28/18 Ordering Provider: Allan Chun MD Type of Exam(s): XR chest 2V Reason for Exam(s): F/U: Pulmonary edema Indication: F/U: Pulmonary edema PROCEDURE: XR chest 2V: Encounter: Initial Comparison: 07/05/2018 Findings: There are trace bilateral pleural effusions. Patient is status post median sternotomy. There is a right IJ port in place. No definite lobar consolidation. No definite mediastinal or hilar adenopathy. The trachea is midline. No significant tortuosity of the descending thoracic aorta. No subdiaphragmatic free air. Impression: Trace bilateral pleural effusions. No definite overt CHF. 03/28/18 19:26 Assessment and Plan - Assessment and Plan (1) CHF (congestive heart failure) Problem details: diastolic Status: Acute EF 60% on echo 03/09 JVD and pedal edema (2) CAD (coronary artery disease) Status: Chronic (3) Essential (primary) hypertension Status: Chronic (4) CKD (chronic kidney disease) Status: Chronic (5) Hypothyroidism Status: Chronic (6) Hypomagnesemia Status: Acute - Assessment and Plan Acute diastolic heart failure Current visit: Yes Status: Acute - 03/09/2018 echo: EF 55%, NWMA, LVH, Basal REI, TSMM, No LVOT obstruction, LVDD grade1, mild LAE, AoV sclerosis, MAC, trace MR, mild TR, [id number], trace PI. - Symptoms of SOB, LAIRD, orthopnea, LAIRD - 03/26 CXR: severe pulmonary edema. BNP 3560. lungs with crackles. - Received lasix 40mg IV q 8hrs for good U/O > 4000 so far. Wt decreased. symptom improved. - agree with lasix, will monitor wts, I/O, lytes and renal function, Cr and BUN ok. Respiratory failure - now on room air CAD Hx CABG 2000 - start ASA. Not sure why she is not on statin. HTN - agree with metoprolol and losartan. and lasix. HypoK and Hypomag - replaced by attending. CKD - Cr wnl. has seen Dr. Reddy in the past. Hx NHL hypothyroidism 03/28/18 - JVD and pedal edema remain, on O2 at 2L/NC - Continue Lasix 40mg BID for today - monitor renal and electrolytes Hospital Course Summary Disclaimer: The visit summary below is not to be considered part of the above Progress Note. Hospital Course: 03/26/18 Admit patient to inpatient status under the care of Dr. Chun. Consult Dr. Eubanks given her pulmonary edema and significant cardiac history with recent medication changes. Given her pulmonary edema and hypoxia, she was given Lasix 40mg IV x 1 dose in ED with KCl. Continue 40mg IV q 8 hours. Continue KCl 40 mEq po TID WM given her hypokalemia on admission. Follow closely. Spironolactone 25mg x1. Monitor closely on telemetry with continuous pulse oximetry given her hypoxia and significant cardiac history. Patient does not use oxygen at home. Family reports yearly echocardiograms with Dr. Eubanks, though results are unknown and no known history of CHF. Monitor renal function closely - SCr 0.9 with GFR 60 on admission. Dry weight reportedly around 136 lbs. Weight in ED today was 152. Monitor daily weights closely. Espino catheter placed to monitor I&O closely. Recheck labs in AM to monitor blood counts, electrolytes and renal function. Patient is a DNR. Upon discharge, will return care to Dr. Mayes. 03/27/18 Clinically improving - O2 needs resolved. Net output 270 yesterday with 1700 today so far. Weight decreased to 143.88 pounds. Creatinine stable at 0.9 with BUN 10. Potassium improved to 3.6 but Mg still low at 1.3. Will continue with Lasix 40mg IV q8 hours - likely able to decrease tomorrow. MagOx 400mg BID initiated - will give extra dose today at noon. Continue Potassium 40mEq TID with meal - will need to decrease dose/frequency as potassium increases and diuretics decreased. Change SCD to SQ Lovenox as patient having tolerability problems with SCD ( interrupting sleep). PT/OT eval tomorrow to help increase functional status. <Geronimo Eubanks - Last Filed: 04/01/18 16:36> Exam Vital signs: Temperature 96.8 F 04/01/18 07:35 Pulse Rate 80 04/01/18 08:45 Respiratory Rate 18 04/01/18 07:35 Blood Pressure 123/65 04/01/18 07:35 Pulse Oximetry 96 04/01/18 08:45 Inpatient Medications: Discontinued Medications Generic Name Dose Route Start Last Admin Trade Name Freq PRN Reason Stop Dose Admin Acetaminophen 650 mg 03/26/18 12:10 Tylenol PO Q5H PRN Discomfort Albuterol/Ipratropium 3 ml 03/26/18 09:00 03/26/18 09:23 Duoneb AEROSOL 03/26/18 09:01 3 ml O ONE Administration Artificial Tears 1 drop 03/27/18 09:00 04/01/18 09:16 Refresh Celluvisc RIGHT EYE 1 drop DAILY EMILEE Administration Cholecalciferol 4,000 unit 03/27/18 09:00 04/01/18 09:18 Vit. D-3 PO 4,000 unit DAILY EMILEE Administration Clonidine HCl 0.1 mg 03/26/18 09:11 03/26/18 09:20 Catapres PO 03/26/18 09:12 0.1 mg O ONE Administration Clonidine HCl 0.1 mg 03/26/18 21:00 04/01/18 09:19 Catapres PO 0.1 mg BID EMILEE Administration Clonidine HCl 0.1 mg 03/26/18 16:06 03/26/18 17:21 Catapres PO 03/26/18 16:07 0.1 mg ONE TIME ONE Administration Cyanocobalamin 2,000 mcg 03/27/18 09:00 04/01/18 09:17 Vit. B-12 PO 2,000 mcg DAILY EMILEE Administration Enoxaparin Sodium 40 mg 03/28/18 17:15 04/01/18 09:16 Lovenox SQ 40 mg DAILY EMILEE Administration Folic Acid 1 mg 03/27/18 09:00 04/01/18 09:18 Folate PO 1 mg DAILY EMILEE Administration Furosemide 40 mg 03/26/18 09:58 03/26/18 10:33 Lasix 40 Mg/4 Ml IVP 03/26/18 09:59 40 mg O ONE Administration Furosemide 40 mg 03/26/18 17:00 03/28/18 09:31 Lasix 40 Mg/4 Ml IVP 40 mg Q8HR EMILEE Administration Furosemide 40 mg 03/28/18 17:00 03/28/18 18:21 Lasix 40 Mg Tab PO Not Given 0900,1700 EMILEE Furosemide 20 mg 03/29/18 09:00 Lasix 40 Mg Tab PO 0900,1700 EMILEE Furosemide 40 mg 03/28/18 19:45 03/29/18 08:23 Lasix 40 Mg Tab PO 40 mg 0900,1700 EMILEE Administration Furosemide 40 mg 04/01/18 09:00 04/01/18 09:18 Lasix 40 Mg Tab PO 40 mg DAILY EMILEE Administration Sodium Chloride 250 mls @ 75 mls/hr 03/29/18 14:16 03/29/18 18:10 1/2 Normal Saline IV Infused .Q3H20M EMILEE Infusion Sodium Chloride 500 mls @ 75 mls/hr 03/29/18 14:45 03/30/18 00:54 Normal Saline IV Infused .Q6H40M EMILEE Infusion Sodium Chloride 500 mls @ 125 mls/hr 03/30/18 12:30 03/30/18 17:01 1/2 Normal Saline IV Infused .Q4H EMILEE Infusion Lorazepam 0.25 mg 03/26/18 12:16 Ativan Inj IVP Q6H PRN Anxiety Losartan Potassium 100 mg 03/27/18 09:00 04/01/18 09:18 Cozaar PO 100 mg DAILY EMILEE Administration Magnesium Oxide 400 mg 03/26/18 16:00 04/01/18 09:18 Magox PO 400 mg BIDWM EMILEE Administration Magnesium Oxide 400 mg 03/27/18 12:00 03/27/18 11:29 Magox PO 03/27/18 12:01 400 mg O ONE Administration Metoprolol Tartrate 50 mg 03/26/18 17:30 04/01/18 09:17 Lopressor PO 50 mg BIDWM EMILEE Administration Mirtazapine 15 mg 03/26/18 21:00 03/31/18 21:41 Remeron PO 15 mg HS EMILEE Administration Nystatin 1 applic 04/01/18 09:00 04/01/18 09:27 Mycostatin TP 1 applic BID EMILEE Administration Omeprazole 20 mg 03/26/18 20:00 04/01/18 06:26 Prilosec PO 20 mg BID/E EMILEE Administration Ondansetron HCl 4 mg 03/26/18 12:10 Zofran IVP Q6H PRN Nausea &/or vomiting Pharmacy Consult 1 each 03/29/18 13:44 03/29/18 14:49 Pharmacy Consult - Fall Risk 03/29/18 13:45 Not Given ONE TIME ONE Pharmacy Consult 1 each 03/31/18 11:44 03/31/18 14:26 Pharmacy Consult - Fall Risk 03/31/18 11:45 Not Given ONE TIME ONE Pneumococcal Polyvalent Vaccine 0.5 ml 03/28/18 16:08 03/28/18 18:32 Pneumovax 23 IM 03/28/18 16:09 Not Given .ONCE ONE Polyethylene Glycol 17 gm 03/26/18 11:52 Miralax PO DAILY PRN Constipation Potassium Chloride 40 meq 03/26/18 09:36 03/26/18 09:47 K-Dur 20 Meq Tablet PO 03/26/18 09:37 40 meq O ONE Administration Potassium Chloride 40 meq 03/26/18 12:00 03/28/18 11:49 K-Dur 20 Meq Tablet PO 40 meq TIDWM EMILEE Administration Potassium Chloride 40 meq 03/29/18 08:00 03/29/18 08:37 K-Dur 20 Meq Tablet PO Not Given WB EMILEE Simvastatin 20 mg 03/26/18 21:00 03/31/18 21:42 Zocor PO 20 mg HS EMILEE Administration Sodium Chloride 10 - 80 ml 03/26/18 08:25 03/28/18 04:15 Iv Flush IVF 30 ml PRN PRN Administration Flushing Spironolactone 25 mg 03/26/18 14:30 03/26/18 14:47 Aldactone 25 Mg PO 03/26/18 14:31 25 mg ONE TIME ONE Administration Sucralfate 1 gm 03/26/18 17:00 04/01/18 06:26 Carafate PO 1 gm ACHS EMILEE Administration Trazodone HCl 100 mg 03/26/18 21:00 03/31/18 21:41 Desyrel PO 100 mg HS EMILEE Administration - Urinary Catheter Management Urethral Cath placed during this visit: no Results 03/30/18 04:56 04/01/18 04:51 Comprehensive Metabolic Panel 04/01/18 Range/Units 04:51 Sodium 145 (136-146) MEQ/L Potassium 3.9 (3.6-5) MEQ/L Chloride 104 (98-107) MEQ/L Carbon Dioxide 30 (22-30) MEQ/L BUN 29.0 H (7-17) MG/DL Creatinine 1.3 H D (0.7-1.2) mg/dL Glucose 97 (65-110) MG/DL Calcium 9.0 (8.4-10.2) MG/DL Intake and Output 04/01/18 04/01/18 04/01/18 06:59 14:59 22:59 Intake Total 550 / 550 Output Total 500 / 500 Balance 50 / 50 Intake: Oral 550 / 550 Output: Urine 500 / 500 Other: Urine Appearance Clear Urine Color Pale Urine Odor Normal Weight 62.2 kg Patient Weight 04/02/18 06:59 Weight 62.2 kg Assessment and Plan - Assessment and Plan (1) CHF (congestive heart failure) Problem details: diastolic Status: Acute (2) CAD (coronary artery disease) Status: Chronic (3) Essential (primary) hypertension Status: Chronic (4) CKD (chronic kidney disease) Status: Chronic (5) Hypothyroidism Status: Chronic (6) Hypomagnesemia Status: Acute - Attestation Attestation Narrative: 04/01/18 16:36 Recommendation After examining the patient I agree with the above assessment. I am involved in the formulation of the patient's plan of care. Hospital Course Summary Disclaimer: The visit summary below is not to be considered part of the above Progress Note.
[2018-03-28] MEDS ORDERED: FUROSEMIDE 40 MG TABLET PO SCH (17:00)
[2018-03-28] MEDS: ENOXAPARIN 40 MG/0.4 ML INJECTION SQ SCH (18:36)
[2018-03-28] MEDS: TRAZODONE 100 MG TABLET PO SCH (21:25)
[2018-03-28] MEDS: SIMVASTATIN 20 MG TABLET PO SCH (21:25)
[2018-03-28] MEDS: FUROSEMIDE 40 MG TABLET PO SCH (21:25)
[2018-03-28] MEDS: MIRTAZAPINE 15 MG TABLET PO SCH (21:25)
[2018-03-29] MEDS: SUCRALFATE 1 GM TABLET PO SCH ×4 (06:07→20:15)
[2018-03-29] MEDS: OMEPRAZOLE 20 MG CAPSULE PO SCH ×2 (06:07→20:15)
[2018-03-29] MEDS: ENOXAPARIN 40 MG/0.4 ML INJECTION SQ SCH (08:21)
[2018-03-29] MEDS: CYANOCOBALAMIN (B-12) 500mcg TABLET PO SCH (08:22)
[2018-03-29] MEDS: FUROSEMIDE 40 MG TABLET PO SCH (08:23)
[2018-03-29] MEDS: MAGNESIUM OXIDE 400 MG TABLET PO SCH ×2 (08:24→16:57)
[2018-03-29] MEDS: REFRESH CELLUVISC 1% Eye Drops 0.4ml RIGHT EYE SCH (08:24)
[2018-03-29] MEDS: FOLIC ACID 1 MG TABLET PO SCH (08:25)
[2018-03-29] MEDS: LOSARTAN 100 MG TABLET PO SCH ×2 (08:25→08:30)
[2018-03-29] MEDS ORDERED: FUROSEMIDE 40 MG TABLET PO SCH (09:00)
--- NOTE | 2018-03-29 13:40 | Cardiology Progress Note ---
<Treasure Ortiz M - Last Filed: 03/30/18 14:40> Subjective Principal diagnosis: chf Interval history: Holli is seen in follow up for pulmonary edema and heart failure. She is laying flat in bed, no JVD. She denies chest pain, pressure, dizziness, nausea. Exam Vital signs: Temperature 95.5 F L 03/29/18 11:46 Pulse Rate 74 03/29/18 11:46 Respiratory Rate 22 03/29/18 08:17 Blood Pressure 100/54 03/29/18 11:46 Pulse Oximetry 95 03/29/18 11:46 Inpatient Medications: Generic Name Dose Route Start Last Admin Trade Name Freq PRN Reason Stop Dose Admin Acetaminophen 650 mg 03/26/18 12:10 Tylenol PO Q5H PRN Discomfort Artificial Tears 1 drop 03/27/18 09:00 03/29/18 08:24 Refresh Celluvisc RIGHT EYE 1 drop DAILY EMILEE Administration Cholecalciferol 4,000 unit 03/27/18 09:00 03/29/18 08:24 Vit. D-3 PO 4,000 unit DAILY EMILEE Administration Clonidine HCl 0.1 mg 03/26/18 21:00 03/29/18 08:24 Catapres PO 0.1 mg BID EMILEE Administration Cyanocobalamin 2,000 mcg 03/27/18 09:00 03/29/18 08:22 Vit. B-12 PO 2,000 mcg DAILY EMILEE Administration Enoxaparin Sodium 40 mg 03/28/18 17:15 03/29/18 08:21 Lovenox SQ 40 mg DAILY EMILEE Administration Folic Acid 1 mg 03/27/18 09:00 03/29/18 08:25 Folate PO 1 mg DAILY EMILEE Administration Furosemide 40 mg 03/28/18 19:45 03/29/18 08:23 Lasix 40 Mg Tab PO 40 mg 0900,1700 EMILEE Administration Lorazepam 0.25 mg 03/26/18 12:16 Ativan Inj IVP Q6H PRN Anxiety Losartan Potassium 100 mg 03/27/18 09:00 03/29/18 08:30 Cozaar PO Not Given DAILY EMILEE Magnesium Oxide 400 mg 03/26/18 16:00 03/29/18 08:24 Magox PO 400 mg BIDWM EMILEE Administration Metoprolol Tartrate 50 mg 03/26/18 17:30 03/29/18 08:24 Lopressor PO 50 mg BIDWM EMILEE Administration Mirtazapine 15 mg 03/26/18 21:00 03/28/18 21:25 Remeron PO 15 mg HS EMILEE Administration Omeprazole 20 mg 03/26/18 20:00 03/29/18 06:07 Prilosec PO 20 mg BID/E EMILEE Administration Ondansetron HCl 4 mg 03/26/18 12:10 Zofran IVP Q6H PRN Nausea &/or vomiting Polyethylene Glycol 17 gm 03/26/18 11:52 Miralax PO DAILY PRN Constipation Potassium Chloride 40 meq 03/29/18 08:00 03/29/18 08:37 K-Dur 20 Meq Tablet PO Not Given WB EMILEE Simvastatin 20 mg 03/26/18 21:00 03/28/18 21:25 Zocor PO 20 mg HS EMILEE Administration Sodium Chloride 10 - 80 ml 03/26/18 08:25 03/28/18 04:15 Iv Flush IVF 30 ml PRN PRN Administration Flushing Sucralfate 1 gm 03/26/18 17:00 03/29/18 11:55 Carafate PO 1 gm ACHS EMILEE Administration Trazodone HCl 100 mg 03/26/18 21:00 03/28/18 21:25 Desyrel PO 100 mg HS EMILEE Administration Discontinued Medications Generic Name Dose Route Start Last Admin Trade Name Freq PRN Reason Stop Dose Admin Albuterol/Ipratropium 3 ml 03/26/18 09:00 03/26/18 09:23 Duoneb AEROSOL 03/26/18 09:01 3 ml O ONE Administration Clonidine HCl 0.1 mg 03/26/18 09:11 03/26/18 09:20 Catapres PO 03/26/18 09:12 0.1 mg O ONE Administration Clonidine HCl 0.1 mg 03/26/18 16:06 03/26/18 17:21 Catapres PO 03/26/18 16:07 0.1 mg ONE TIME ONE Administration Furosemide 40 mg 03/26/18 09:58 03/26/18 10:33 Lasix 40 Mg/4 Ml IVP 03/26/18 09:59 40 mg O ONE Administration Furosemide 40 mg 03/26/18 17:00 03/28/18 09:31 Lasix 40 Mg/4 Ml IVP 40 mg Q8HR EMILEE Administration Furosemide 40 mg 03/28/18 17:00 03/28/18 18:21 Lasix 40 Mg Tab PO Not Given 0900,1700 [facility] Furosemide 20 mg 03/29/18 09:00 Lasix 40 Mg Tab PO 0900,1700 [facility] Magnesium Oxide 400 mg 03/27/18 12:00 03/27/18 11:29 Magox PO 03/27/18 12:01 400 mg O ONE Administration Pneumococcal Polyvalent Vaccine 0.5 ml 03/28/18 16:08 03/28/18 18:32 Pneumovax 23 IM 03/28/18 16:09 Not Given .ONCE ONE Potassium Chloride 40 meq 03/26/18 09:36 03/26/18 09:47 K-Dur 20 Meq Tablet PO 03/26/18 09:37 40 meq O ONE Administration Potassium Chloride 40 meq 03/26/18 12:00 03/28/18 11:49 K-Dur 20 Meq Tablet PO 40 meq TIDWM EMILEE Administration Spironolactone 25 mg 03/26/18 14:30 03/26/18 14:47 Aldactone 25 Mg PO 03/26/18 14:31 25 mg ONE TIME ONE Administration - Constitutional no acute distress, well nourished, cooperative - Routine HEENT Exam Head: Present: normocephalic ENT: Present: mucous membranes moist - Routine Neck Exam Absent: JVD, carotid bruit - Routine Chest/Breast/Axilla Exam Chest wall: Absent: tenderness - Routine Respiratory Exam Present: CTA bilaterally. Absent: dyspnea, rales, wheezes - Routine Cardiovascular Exam Present: RRR, no murmur - Routine Abdominal Exam Present: soft, non tender - Routine Extremities Exam Present: no edema, pulses intact - Routine Skin Exam Present: intact, dry, warm - Routine Neurological Exam Present: alert, oriented X3 - Routine Psychiatric Exam Present: normal affect, normal thought process - Urinary Catheter Management Urethral Cath placed during this visit: yes Insertion date: 03/26/18 Insertion time: 12:24 Results 03/30/18 04:56 03/30/18 04:56 Cardiac Enzymes 03/29/18 Range/Units 04:08 AST 14 (14-36) U/L CBC 03/29/18 Range/Units 04:08 WBC 6.8 (4.5-11.0) T/MM3 RBC 3.82 L (4.00-5.20) M/MM3 Hgb 11.2 L (12-16) GM/DL Hct 35.7 L (36-46) % Plt Count 187 (130-400) T/MM3 Neut # (Auto) 4.1 (1.8-7.7) T/MM3 Lymph # (Auto) 1.9 (1-4.8) T/MM3 [place] # (Auto) 0.6 (0-0.8) T/MM3 Eos # (Auto) 0.2 (0-0.5) T/MM3 Baso # (Auto) 0.0 (0-0.2) T/MM3 Comprehensive Metabolic Panel 03/29/18 Range/Units 04:08 Sodium 143 (136-146) MEQ/L Potassium 5.2 H (3.6-5) MEQ/L Chloride 100 (98-107) MEQ/L Carbon Dioxide 33 H (22-30) MEQ/L BUN 36.0 H D (7-17) MG/DL Creatinine 1.8 H D (0.7-1.2) mg/dL Glucose 106 (65-110) MG/DL Calcium 9.5 (8.4-10.2) MG/DL AST 14 (14-36) U/L ALT 9 (1-35) U/L Alkaline Phosphatase 63 (38-126) U/L Total Protein 6.6 (6.3-8.2) g/dL Albumin 3.8 (3.5-5.0) g/dL Intake and Output 03/28/18 03/29/18 03/29/18 22:59 06:59 14:59 Intake Total 650 / 650 200 / 200 537 / 537 Output Total 850 / 850 Balance 650 / 650 -650 / -650 537 / 537 Intake: Oral 650 / 650 200 / 200 537 / 537 Output: Urine Amount (Catheter) 850 / 850 Other: Urine Appearance Sediment Clear Sediment Urine Color Dark Yellow Urine Odor Strong Stool Color Brown Green Stool Consistency Soft Size of Bowel Movement Smear # Bowel Movements 1 Weight 137 lb 9.095 oz Patient Weight 03/30/18 06:59 Weight 137 lb 9.095 oz Assessment and Plan - Assessment and Plan (1) CHF (congestive heart failure) Problem details: diastolic Status: Acute (2) CAD (coronary artery disease) Status: Chronic (3) Essential (primary) hypertension Status: Chronic (4) CKD (chronic kidney disease) Status: Chronic (5) Hypothyroidism Status: Chronic (6) Hypomagnesemia Status: Acute - Assessment and Plan 03/28/18 Acute diastolic heart failure - 03/09/2018 echo: EF 55%, NWMA, LVH, Basal REI, TSMM, No LVOT obstruction, LVDD grade1, mild LAE, AoV sclerosis, MAC, trace MR, mild TR, [id number], trace PI. - Symptoms of SOB, LAIRD, orthopnea, LAIRD - 03/26 CXR: severe pulmonary edema. BNP 3560. lungs with crackles. - Received lasix 40mg IV q 8hrs for good U/O > 4000 so far. Wt decreased. symptom improved. - agree with lasix, will monitor wts, I/O, lytes and renal function, Cr and BUN ok. Respiratory failure - now on room air CAD Hx CABG 2000 - start ASA. Not sure why she is not on statin. HTN - agree with metoprolol and losartan. and lasix. HypoK and Hypomag - replaced by attending. CKD - Cr wnl. has seen Dr. Reddy in the past. Hx NHL hypothyroidism 03/28/18 - JVD and pedal edema remain, on O2 at 2L/NC - Continue Lasix 40mg BID for today - monitor renal and electrolytes 03/29/18 BUN 36/ SCr 1.8, no JVD today - hold diuretic and Potassium - Give 500ml NS at 75mL/hr Hospital Course Summary Disclaimer: The visit summary below is not to be considered part of the above Progress Note. Hospital Course: 03/26/18 Admit patient to inpatient status under the care of Dr. Chun. Consult Dr. Eubanks given her pulmonary edema and significant cardiac history with recent medication changes. Given her pulmonary edema and hypoxia, she was given Lasix 40mg IV x 1 dose in ED with KCl. Continue 40mg IV q 8 hours. Continue KCl 40 mEq po TID WM given her hypokalemia on admission. Follow closely. Spironolactone 25mg x1. Monitor closely on telemetry with continuous pulse oximetry given her hypoxia and significant cardiac history. Patient does not use oxygen at home. Family reports yearly echocardiograms with Dr. Eubanks, though results are unknown and no known history of CHF. Monitor renal function closely - SCr 0.9 with GFR 60 on admission. Dry weight reportedly around 136 lbs. Weight in ED today was 152. Monitor daily weights closely. Espino catheter placed to monitor I&O closely. Recheck labs in AM to monitor blood counts, electrolytes and renal function. Patient is a DNR. Upon discharge, will return care to Dr. Mayes. 03/27/18 Clinically improving - O2 needs resolved. Net output 270 yesterday with 1700 today so far. Weight decreased to 143.88 pounds. Creatinine stable at 0.9 with BUN 10. Potassium improved to 3.6 but Mg still low at 1.3. Will continue with Lasix 40mg IV q8 hours - likely able to decrease tomorrow. MagOx 400mg BID initiated - will give extra dose today at noon. Continue Potassium 40mEq TID with meal - will need to decrease dose/frequency as potassium increases and diuretics decreased. Change SCD to SQ Lovenox as patient having tolerability problems with SCD ( interrupting sleep). PT/OT eval tomorrow to help increase functional status. <Geronimo Eubanks - Last Filed: 04/04/18 13:58> Exam Vital signs: Temperature 96.8 F 04/01/18 07:35 Pulse Rate 80 04/01/18 08:45 Respiratory Rate 18 04/01/18 07:35 Blood Pressure 123/65 04/01/18 07:35 Pulse Oximetry 96 04/01/18 08:45 Inpatient Medications: Discontinued Medications Generic Name Dose Route Start Last Admin Trade Name Freq PRN Reason Stop Dose Admin Acetaminophen 650 mg 03/26/18 12:10 Tylenol PO Q5H PRN Discomfort Albuterol/Ipratropium 3 ml 03/26/18 09:00 03/26/18 09:23 Duoneb AEROSOL 03/26/18 09:01 3 ml O ONE Administration Artificial Tears 1 drop 03/27/18 09:00 04/01/18 09:16 Refresh Celluvisc RIGHT EYE 1 drop DAILY EMILEE Administration Cholecalciferol 4,000 unit 03/27/18 09:00 04/01/18 09:18 Vit. D-3 PO 4,000 unit DAILY EMIELE Administration Clonidine HCl 0.1 mg 03/26/18 09:11 03/26/18 09:20 Catapres PO 03/26/18 09:12 0.1 mg O ONE Administration Clonidine HCl 0.1 mg 03/26/18 21:00 04/01/18 09:19 Catapres PO 0.1 mg BID EMILEE Administration Clonidine HCl 0.1 mg 03/26/18 16:06 03/26/18 17:21 Catapres PO 03/26/18 16:07 0.1 mg ONE TIME ONE Administration Cyanocobalamin 2,000 mcg 03/27/18 09:00 04/01/18 09:17 Vit. B-12 PO 2,000 mcg DAILY EMILEE Administration Enoxaparin Sodium 40 mg 03/28/18 17:15 04/01/18 09:16 Lovenox SQ 40 mg DAILY EMILEE Administration Folic Acid 1 mg 03/27/18 09:00 04/01/18 09:18 Folate PO 1 mg DAILY EMILEE Administration Furosemide 40 mg 03/26/18 09:58 03/26/18 10:33 Lasix 40 Mg/4 Ml IVP 03/26/18 09:59 40 mg O ONE Administration Furosemide 40 mg 03/26/18 17:00 03/28/18 09:31 Lasix 40 Mg/4 Ml IVP 40 mg Q8HR EMILEE Administration Furosemide 40 mg 03/28/18 17:00 03/28/18 18:21 Lasix 40 Mg Tab PO Not Given 0900,1700 EMILEE Furosemide 20 mg 03/29/18 09:00 Lasix 40 Mg Tab PO 0900,1700 EMILEE Furosemide 40 mg 03/28/18 19:45 03/29/18 08:23 Lasix 40 Mg Tab PO 40 mg 0900,1700 EMILEE Administration Furosemide 40 mg 04/01/18 09:00 04/01/18 09:18 Lasix 40 Mg Tab PO 40 mg DAILY EMILEE Administration Sodium Chloride 250 mls @ 75 mls/hr 03/29/18 14:16 03/29/18 18:10 1/2 Normal Saline IV Infused .Q3H20M EMILEE Infusion Sodium Chloride 500 mls @ 75 mls/hr 03/29/18 14:45 03/30/18 00:54 Normal Saline IV Infused .Q6H40M EMILEE Infusion Sodium Chloride 500 mls @ 125 mls/hr 03/30/18 12:30 03/30/18 17:01 1/2 Normal Saline IV Infused .Q4H EMILEE Infusion Lorazepam 0.25 mg 03/26/18 12:16 Ativan Inj IVP Q6H PRN Anxiety Losartan Potassium 100 mg 03/27/18 09:00 04/01/18 09:18 Cozaar PO 100 mg DAILY EMILEE Administration Magnesium Oxide 400 mg 03/26/18 16:00 04/01/18 09:18 Magox PO 400 mg BIDWM EMILEE Administration Magnesium Oxide 400 mg 03/27/18 12:00 03/27/18 11:29 Magox PO 03/27/18 12:01 400 mg O ONE Administration Metoprolol Tartrate 50 mg 03/26/18 17:30 04/01/18 09:17 Lopressor PO 50 mg BIDWM EMILEE Administration Mirtazapine 15 mg 03/26/18 21:00 03/31/18 21:41 Remeron PO 15 mg HS EMILEE Administration Nystatin 1 applic 04/01/18 09:00 04/01/18 09:27 Mycostatin TP 1 applic BID EMILEE Administration Omeprazole 20 mg 03/26/18 20:00 04/01/18 06:26 Prilosec PO 20 mg BID/E EMILEE Administration Ondansetron HCl 4 mg 03/26/18 12:10 Zofran IVP Q6H PRN Nausea &/or vomiting Pharmacy Consult 1 each 03/29/18 13:44 03/29/18 14:49 Pharmacy Consult - Fall Risk 03/29/18 13:45 Not Given ONE TIME ONE Pharmacy Consult 1 each 03/31/18 11:44 03/31/18 14:26 Pharmacy Consult - Fall Risk 03/31/18 11:45 Not Given ONE TIME ONE Pneumococcal Polyvalent Vaccine 0.5 ml 03/28/18 16:08 03/28/18 18:32 Pneumovax 23 IM 03/28/18 16:09 Not Given .ONCE ONE Polyethylene Glycol 17 gm 03/26/18 11:52 Miralax PO DAILY PRN Constipation Potassium Chloride 40 meq 03/26/18 09:36 03/26/18 09:47 K-Dur 20 Meq Tablet PO 03/26/18 09:37 40 meq O ONE Administration Potassium Chloride 40 meq 03/26/18 12:00 03/28/18 11:49 K-Dur 20 Meq Tablet PO 40 meq TIDWM EMILEE Administration Potassium Chloride 40 meq 03/29/18 08:00 03/29/18 08:37 K-Dur 20 Meq Tablet PO Not Given WB EMILEE Simvastatin 20 mg 03/26/18 21:00 03/31/18 21:42 Zocor PO 20 mg HS EMILEE Administration Sodium Chloride 10 - 80 ml 03/26/18 08:25 03/28/18 04:15 Iv Flush IVF 30 ml PRN PRN Administration Flushing Spironolactone 25 mg 03/26/18 14:30 03/26/18 14:47 Aldactone 25 Mg PO 03/26/18 14:31 25 mg ONE TIME ONE Administration Sucralfate 1 gm 03/26/18 17:00 04/01/18 06:26 Carafate PO 1 gm ACHS EMILEE Administration Trazodone HCl 100 mg 03/26/18 21:00 03/31/18 21:41 Desyrel PO 100 mg HS EMILEE Administration - Urinary Catheter Management Urethral Cath placed during this visit: no Results 03/30/18 04:56 04/01/18 04:51 Assessment and Plan - Assessment and Plan (1) CHF (congestive heart failure) Problem details: diastolic Status: Acute (2) CAD (coronary artery disease) Status: Chronic (3) Essential (primary) hypertension Status: Chronic (4) CKD (chronic kidney disease) Status: Chronic (5) Hypothyroidism Status: Chronic (6) Hypomagnesemia Status: Acute - Attestation Attestation Narrative: 04/04/18 13:58 Recommendation After examining the patient I agree with the above assessment. I am involved in the formulation of the patient's plan of care. Hospital Course Summary Disclaimer: The visit summary below is not to be considered part of the above Progress Note.
[2018-03-29] MEDS ORDERED: FALL RISK - PHARMACY CONSULT MC ONE (13:44)
[2018-03-29] MEDS ORDERED: 1/2 NS 250 ML IV SCH (14:16)
[2018-03-29] MEDS ORDERED: NS 500 ML IV SCH (14:45)
--- NOTE | 2018-03-29 14:51 | Progress Note ---
- Date 03/29/18 Subjective: Patient resting in bed at the time of interview. Reports feeling weak, fatigued , tired today. BUN increased at 36 and serum creatinine 1.8 today. Likely secondary to contraction alkalosis from diuresis. Also, serum potassium elevated at 5.2. Will hold Lasix medication for today. We'll provide 500 mL IV normal saline fluid challenge. Home medication losartan also held for now in view of hyperkalemia. No reported chest pain, no shortness of breath, no dizziness, no subjective fever, no chills, no increased sweating. Patient symptoms of fatigue, weakness likely could be secondary to intravascular fluid depletion from over diuresis and contraction alkalosis. Objective Vital signs: Temperature 95.5 F L 03/29/18 11:46 Pulse Rate 74 03/29/18 11:46 Respiratory Rate 22 03/29/18 08:17 Blood Pressure 100/54 03/29/18 11:46 Pulse Oximetry 95 03/29/18 11:46 Height/Weight/BMI: Height 1.55 m Weight 62.4 kg Body Mass Index 27.1 - Additional findings Additional findings: General: Alert, awake, oriented to self, place and person. Not in acute distress. Head: Atraumatic. Pupils equal, round, reactive to light and accommodation. Extraocular movements intact. Neck: No elevation in JVP. No pharyngeal erythema noted. Chest: The patient does not use accessory muscles for breathing. Lungs: Breath sounds audible on auscultation bilateral lung aguero. No wheezing , no rhonchi, no crepitations, no crackles. No pleural rub. CVS: S1, S2 heard on auscultation. Normal rate and rhythm. No murmur, no S3/S4 gallops. Abdomen: Soft, nontender, no distention. Bowel sounds appreciated on auscultation. Skin: No rashes, no induration, no erythema. Capillary refill less than 4 seconds. Extremities: No evidence of pedal edema bilateral lower extremities. No calf tenderness bilaterally. Palpable dorsalis pedis and posterior tibial pulses bilateral lower extremities. Results - Labs CBC & Chem 7: 03/29/18 04:08 03/29/18 04:08 Assessment and Plan (1) Pulmonary edema Current visit: Yes Status: Resolved (2) Respiratory failure with hypoxia Current visit: Yes Status: Resolved (3) Fluid overload, unspecified Current visit: Yes Status: Resolved Assessment and Plan: Assessment Respiratory failure with hypoxia (POA) Pulmonary edema Uncontrolled hypertension (POA) Fluid overload Hypernatremia (POA) Hypokalemia (POA) Hypomagnesemia (POA) Contraction alkalosis from diuresis Non-Hodgkins lymphoma - follows with Dr. Ace Hypertension Hyperlipidemia CAD with prior CABG Chronic kidney disease, stage III - average GFR ~50 GERD History of PUD with bleeding ulcers requiring blood transfusions Chronic anemia Insomnia Macular degeneration History of UTI Borderline personality disorder Gen debility secondary to declining cardiopulmonary status. Plan -5.1 L fluid balance since admission and +0.9 L fluid balance since yesterday. BNP 3560 on admission, dropped to 519 today. Serum creatinine elevated at 5.2. Will stop oral potassium chloride supplementation. Will monitor potassium level. BUN increased to 36, serum creatinine 1.8. Stop oral Lasix. We will provide IV normal saline 500 mL fluid challenge. Patient evaluated by OT and PT, recommendation for discharge back to assisted living facility. Will continue home medication oral magnesium oxide 400 mg twice a day. Patient's blood pressure 100/54 this morning. Home medication losartan held. Clonidine dose held for today and will be restarted tomorrow morning. CBC, CMP reordered for tomorrow morning. DVT Prophylaxis: SCD's GI Prophylaxis: Omeprazole Resuscitation Status: Do Not Resuscitate - Physician Narrative Narrative: Date: 03/29/18 Time: 1446 Hospital Course Summary Disclaimer: The visit summary below is not to be considered part of the above Progress Note. Hospital Course: 03/26/18 Admit patient to inpatient status under the care of Dr. Chun. Consult Dr. Eubanks given her pulmonary edema and significant cardiac history with recent medication changes. Given her pulmonary edema and hypoxia, she was given Lasix 40mg IV x 1 dose in ED with KCl. Continue 40mg IV q 8 hours. Continue KCl 40 mEq po TID WM given her hypokalemia on admission. Follow closely. Spironolactone 25mg x1. Monitor closely on telemetry with continuous pulse oximetry given her hypoxia and significant cardiac history. Patient does not use oxygen at home. Family reports yearly echocardiograms with Dr. Eubanks, though results are unknown and no known history of CHF. Monitor renal function closely - SCr 0.9 with GFR 60 on admission. Dry weight reportedly around 136 lbs. Weight in ED today was 152. Monitor daily weights closely. Espino catheter placed to monitor I&O closely. Recheck labs in AM to monitor blood counts, electrolytes and renal function. Patient is a DNR. Upon discharge, will return care to Dr. Mayes. 03/27/18 Clinically improving - O2 needs resolved. Net output 270 yesterday with 1700 today so far. Weight decreased to 143.88 pounds. Creatinine stable at 0.9 with BUN 10. Potassium improved to 3.6 but Mg still low at 1.3. Will continue with Lasix 40mg IV q8 hours - likely able to decrease tomorrow. MagOx 400mg BID initiated - will give extra dose today at noon. Continue Potassium 40mEq TID with meal - will need to decrease dose/frequency as potassium increases and diuretics decreased. Change SCD to SQ Lovenox as patient having tolerability problems with SCD ( interrupting sleep). PT/OT eval tomorrow to help increase functional status. 03/28/2018 -6 L fluid balance since admission and -1.5 L fluid balance since yesterday. BNP 3560 on admission, will be rechecked tomorrow morning. BUN increased to 23, serum creatinine 1.3. Serum potassium elevated at 4.9. Stop IV Lasix. Patient started on oral Lasix 40 mg twice a day 9 AM and 5 PM. Will switch oral potassium chloride 40 mEq once daily. Patient evaluated by OT earlier today, recommendation for discharge back to assisted living facility. Awaiting PT eval report. Will continue home medication oral magnesium oxide 400 mg twice a day. Patient's blood pressure 89/54 this morning, likely secondary to diuresis leading to contraction alkalosis. Change in diuresis as described above. Clonidine dose held for today and will be restarted tomorrow morning. 03/29/2018 -5.1 L fluid balance since admission and +0.9 L fluid balance since yesterday. BNP 3560 on admission, dropped to 519 today. Serum creatinine elevated at 5.2. Will stop oral potassium chloride supplementation. Will monitor potassium level. BUN increased to 36, serum creatinine 1.8. Stop oral Lasix. We will provide IV normal saline 500 mL fluid challenge. Patient evaluated by OT and PT, recommendation for discharge back to assisted living facility. Will continue home medication oral magnesium oxide 400 mg twice a day. Patient's blood pressure 100/54 this morning. Home medication losartan held. Clonidine dose held for today and will be restarted tomorrow morning.
[2018-03-29] MEDS: MIRTAZAPINE 15 MG TABLET PO SCH (20:15)
[2018-03-29] MEDS: SIMVASTATIN 20 MG TABLET PO SCH (20:15)
[2018-03-29] MEDS: TRAZODONE 100 MG TABLET PO SCH (20:15)
[2018-03-30] MEDS: OMEPRAZOLE 20 MG CAPSULE PO SCH ×2 (06:38→20:11)
[2018-03-30] MEDS: SUCRALFATE 1 GM TABLET PO SCH ×4 (06:38→20:12)
[2018-03-30] MEDS: ENOXAPARIN 40 MG/0.4 ML INJECTION SQ SCH (09:16)
[2018-03-30] MEDS: FOLIC ACID 1 MG TABLET PO SCH (09:17)
[2018-03-30] MEDS: CYANOCOBALAMIN (B-12) 500mcg TABLET PO SCH (09:17)
[2018-03-30] MEDS: REFRESH CELLUVISC 1% Eye Drops 0.4ml RIGHT EYE SCH (09:18)
[2018-03-30] MEDS: MAGNESIUM OXIDE 400 MG TABLET PO SCH ×2 (09:18→17:02)
[2018-03-30] MEDS ORDERED: 1/2 NS 500 ML IV SCH (12:30)
--- NOTE | 2018-03-30 14:33 | Progress Note ---
- Date 03/30/18 Subjective: Patient resting in bed at the time of interview. +1.3 L fluid balance and compared to yesterday. Subjectively, symptoms of generalized weakness, fatigue which patient verbalizes yesterday has resolved. Although B UN increased to 39, serum creatinine further elevated at 1.9. Patient did receive 250 mL of IV half normal saline fluid challenge yesterday. Patient states she is able to ambulate better today. No reported chest pain, no shortness of breath, no subjective fever, no chills, no flank pain, no dysuria. No other verbalized complaints. Objective Vital signs: Temperature 96.3 F L 03/30/18 12:08 Pulse Rate 78 03/30/18 12:08 Respiratory Rate 20 03/30/18 12:08 Blood Pressure 139/67 03/30/18 12:08 Pulse Oximetry 93 03/30/18 12:30 Height/Weight/BMI: Height 1.55 m Weight 63.1 kg Body Mass Index 27.1 - Additional findings Additional findings: General: Alert, awake, oriented to self, place and person. Not in acute distress. Head: Atraumatic. Pupils equal, round, reactive to light and accommodation. Extraocular movements intact. Neck: No elevation in JVP. No pharyngeal erythema noted. Chest: The patient does not use accessory muscles for breathing. Lungs: Breath sounds audible on auscultation bilateral lung aguero. No wheezing , no rhonchi, no crepitations, no crackles. No pleural rub. CVS: S1, S2 heard on auscultation. Normal rate and rhythm. No murmur, no S3/S4 gallops. Abdomen: Soft, nontender, no distention. Bowel sounds appreciated on auscultation. Skin: No rashes, no induration, no erythema. Capillary refill less than 4 seconds. Extremities: Trace pedal edema bilateral lower extremities. No calf tenderness bilaterally. Palpable dorsalis pedis and posterior tibial pulses bilateral lower extremities. Results - Labs CBC & Chem 7: 03/30/18 04:56 03/30/18 04:56 Assessment and Plan (1) Pulmonary edema Current visit: Yes Status: Resolved (2) Respiratory failure with hypoxia Current visit: Yes Status: Resolved (3) Fluid overload, unspecified Current visit: Yes Status: Resolved Assessment and Plan: Assessment Respiratory failure with hypoxia (POA) Pulmonary edema Uncontrolled hypertension (POA) Fluid overload Hypernatremia (POA) Hypokalemia (POA) Hypomagnesemia (POA) Contraction alkalosis from diuresis Non-Hodgkins lymphoma - follows with Dr. Ace Hypertension Hyperlipidemia CAD with prior CABG Chronic kidney disease, stage III - average GFR ~50 GERD History of PUD with bleeding ulcers requiring blood transfusions Chronic anemia Insomnia Macular degeneration History of UTI Borderline personality disorder Gen debility secondary to declining cardiopulmonary status. Plan -4.1 L fluid balance since admission and +1.3 L fluid balance since yesterday. BNP 3560 on admission, dropped to 519 thereafter. Serum potassium improved to 4.6. Will monitor potassium level. BUN increased to 39, serum creatinine 1.9. We'll continue to hold Lasix. We will provide 500 mL IV half normal saline fluid challenge. Patient evaluated by OT and PT, recommendation for discharge back to assisted living facility. Will continue home medication oral magnesium oxide 400 mg twice a day. Patient's blood pressure 115/65 this morning. Home medication losartan held. Clonidine dose held for today and will be restarted tomorrow morning. CBC, BMP reordered for tomorrow morning. DVT Prophylaxis: SCD's GI Prophylaxis: Omeprazole Resuscitation Status: Do Not Resuscitate - Physician Narrative Narrative: Date: 03/30/18 Time: 1426 Hospital Course Summary Disclaimer: The visit summary below is not to be considered part of the above Progress Note. Hospital Course: 03/26/18 Admit patient to inpatient status under the care of Dr. Chun. Consult Dr. Eubanks given her pulmonary edema and significant cardiac history with recent medication changes. Given her pulmonary edema and hypoxia, she was given Lasix 40mg IV x 1 dose in ED with KCl. Continue 40mg IV q 8 hours. Continue KCl 40 mEq po TID WM given her hypokalemia on admission. Follow closely. Spironolactone 25mg x1. Monitor closely on telemetry with continuous pulse oximetry given her hypoxia and significant cardiac history. Patient does not use oxygen at home. Family reports yearly echocardiograms with Dr. Eubanks, though results are unknown and no known history of CHF. Monitor renal function closely - SCr 0.9 with GFR 60 on admission. Dry weight reportedly around 136 lbs. Weight in ED today was 152. Monitor daily weights closely. Espino catheter placed to monitor I&O closely. Recheck labs in AM to monitor blood counts, electrolytes and renal function. Patient is a DNR. Upon discharge, will return care to Dr. Mayes. 03/27/18 Clinically improving - O2 needs resolved. Net output 270 yesterday with 1700 today so far. Weight decreased to 143.88 pounds. Creatinine stable at 0.9 with BUN 10. Potassium improved to 3.6 but Mg still low at 1.3. Will continue with Lasix 40mg IV q8 hours - likely able to decrease tomorrow. MagOx 400mg BID initiated - will give extra dose today at noon. Continue Potassium 40mEq TID with meal - will need to decrease dose/frequency as potassium increases and diuretics decreased. Change SCD to SQ Lovenox as patient having tolerability problems with SCD ( interrupting sleep). PT/OT eval tomorrow to help increase functional status. 03/28/2018 -6 L fluid balance since admission and -1.5 L fluid balance since yesterday. BNP 3560 on admission, will be rechecked tomorrow morning. BUN increased to 23, serum creatinine 1.3. Serum potassium elevated at 4.9. Stop IV Lasix. Patient started on oral Lasix 40 mg twice a day 9 AM and 5 PM. Will switch oral potassium chloride 40 mEq once daily. Patient evaluated by OT earlier today, recommendation for discharge back to assisted living facility. Awaiting PT eval report. Will continue home medication oral magnesium oxide 400 mg twice a day. Patient's blood pressure 89/54 this morning, likely secondary to diuresis leading to contraction alkalosis. Change in diuresis as described above. Clonidine dose held for today and will be restarted tomorrow morning. 03/29/2018 -5.1 L fluid balance since admission and +0.9 L fluid balance since yesterday. BNP 3560 on admission, dropped to 519 today. Serum creatinine elevated at 5.2. Will stop oral potassium chloride supplementation. Will monitor potassium level. BUN increased to 36, serum creatinine 1.8. Stop oral Lasix. We will provide IV normal saline 500 mL fluid challenge. Patient evaluated by OT and PT, recommendation for discharge back to assisted living facility. Will continue home medication oral magnesium oxide 400 mg twice a day. Patient's blood pressure 100/54 this morning. Home medication losartan held. Clonidine dose held for today and will be restarted tomorrow morning. 03/30/2018 -4.1 L fluid balance since admission and +1.3 L fluid balance since yesterday. BNP 3560 on admission, dropped to 519 thereafter. Serum potassium improved to 4.6. Will monitor potassium level. BUN increased to 39, serum creatinine 1.9. We'll continue to hold Lasix. We will provide 500 mL IV half normal saline fluid challenge. Patient evaluated by OT and PT, recommendation for discharge back to assisted living facility. Will continue home medication oral magnesium oxide 400 mg twice a day. Patient's blood pressure 115/65 this morning. Home medication losartan held. Clonidine dose held for today and will be restarted tomorrow morning.
--- NOTE | 2018-03-30 14:48 | Cardiology Progress Note ---
<Treasure Ortiz M - Last Filed: 03/31/18 12:14> Subjective Principal diagnosis: chf Interval history: Holli is seen in follow up for pulmonary edema and heart failure. She is sitting up in the recliner in no distress. She denies chest pain, pressure, dizziness, nausea. Exam Vital signs: Temperature 96.3 F L 03/30/18 12:08 Pulse Rate 78 03/30/18 12:08 Respiratory Rate 20 03/30/18 12:08 Blood Pressure 139/67 03/30/18 12:08 Pulse Oximetry 93 03/30/18 12:30 Inpatient Medications: Generic Name Dose Route Start Last Admin Trade Name Freq PRN Reason Stop Dose Admin Acetaminophen 650 mg 03/26/18 12:10 Tylenol PO Q5H PRN Discomfort Artificial Tears 1 drop 03/27/18 09:00 03/30/18 09:18 Refresh Celluvisc RIGHT EYE 1 drop DAILY EMILEE Administration Cholecalciferol 4,000 unit 03/27/18 09:00 03/30/18 09:17 Vit. D-3 PO 4,000 unit DAILY EMILEE Administration Clonidine HCl 0.1 mg 03/26/18 21:00 03/30/18 09:18 Catapres PO Not Given BID EMILEE Cyanocobalamin 2,000 mcg 03/27/18 09:00 03/30/18 09:17 Vit. B-12 PO 2,000 mcg DAILY EMILEE Administration Enoxaparin Sodium 40 mg 03/28/18 17:15 03/30/18 09:16 Lovenox SQ 40 mg DAILY EMILEE Administration Folic Acid 1 mg 03/27/18 09:00 03/30/18 09:17 Folate PO 1 mg DAILY EMILEE Administration Sodium Chloride 500 mls @ 75 mls/hr 03/29/18 14:45 03/30/18 00:54 Normal Saline IV Infused .Q6H40M EMILEE Infusion Sodium Chloride 500 mls @ 125 mls/hr 03/30/18 12:30 03/30/18 12:56 1/2 Normal Saline IV 125 mls/hr .Q4H EMILEE Administration Lorazepam 0.25 mg 03/26/18 12:16 Ativan Inj IVP Q6H PRN Anxiety Losartan Potassium 100 mg 03/27/18 09:00 03/29/18 08:30 Cozaar PO Not Given DAILY EMILEE Magnesium Oxide 400 mg 03/26/18 16:00 03/30/18 09:18 Magox PO 400 mg BIDWM EMILEE Administration Metoprolol Tartrate 50 mg 03/26/18 17:30 03/30/18 09:18 Lopressor PO 50 mg BIDWM EMILEE Administration Mirtazapine 15 mg 03/26/18 21:00 03/29/18 20:15 Remeron PO 15 mg HS EMILEE Administration Omeprazole 20 mg 03/26/18 20:00 03/30/18 06:38 Prilosec PO 20 mg BID/E EMILEE Administration Ondansetron HCl 4 mg 03/26/18 12:10 Zofran IVP Q6H PRN Nausea &/or vomiting Polyethylene Glycol 17 gm 03/26/18 11:52 Miralax PO DAILY PRN Constipation Simvastatin 20 mg 03/26/18 21:00 03/29/18 20:15 Zocor PO 20 mg HS EMILEE Administration Sodium Chloride 10 - 80 ml 03/26/18 08:25 03/28/18 04:15 Iv Flush IVF 30 ml PRN PRN Administration Flushing Sucralfate 1 gm 03/26/18 17:00 03/30/18 11:50 Carafate PO 1 gm ACHS EMILEE Administration Trazodone HCl 100 mg 03/26/18 21:00 03/29/18 20:15 Desyrel PO 100 mg HS EMILEE Administration Discontinued Medications Generic Name Dose Route Start Last Admin Trade Name Freq PRN Reason Stop Dose Admin Albuterol/Ipratropium 3 ml 03/26/18 09:00 03/26/18 09:23 Duoneb AEROSOL 03/26/18 09:01 3 ml O ONE Administration Clonidine HCl 0.1 mg 03/26/18 09:11 03/26/18 09:20 Catapres PO 03/26/18 09:12 0.1 mg O ONE Administration Clonidine HCl 0.1 mg 03/26/18 16:06 03/26/18 17:21 Catapres PO 03/26/18 16:07 0.1 mg ONE TIME ONE Administration Furosemide 40 mg 03/26/18 09:58 03/26/18 10:33 Lasix 40 Mg/4 Ml IVP 03/26/18 09:59 40 mg O ONE Administration Furosemide 40 mg 03/26/18 17:00 03/28/18 09:31 Lasix 40 Mg/4 Ml IVP 40 mg Q8HR EMILEE Administration Furosemide 40 mg 03/28/18 17:00 03/28/18 18:21 Lasix 40 Mg Tab PO Not Given 0900,1700 EMILEE Furosemide 20 mg 03/29/18 09:00 Lasix 40 Mg Tab PO 0900,1700 EMILEE Furosemide 40 mg 03/28/18 19:45 03/29/18 08:23 Lasix 40 Mg Tab PO 40 mg 0900,1700 EMILEE Administration Sodium Chloride 250 mls @ 75 mls/hr 03/29/18 14:16 03/29/18 18:10 1/2 Normal Saline IV Infused .Q3H20M [facility] Infusion Magnesium Oxide 400 mg 03/27/18 12:00 03/27/18 11:29 Magox PO 03/27/18 12:01 400 mg O ONE Administration Pharmacy Consult 1 each 03/29/18 13:44 03/29/18 14:49 Pharmacy Consult - Fall Risk [facility] 03/29/18 13:45 Not Given ONE TIME ONE Pneumococcal Polyvalent Vaccine 0.5 ml 03/28/18 16:08 03/28/18 18:32 Pneumovax 23 IM 03/28/18 16:09 Not Given .ONCE ONE Potassium Chloride 40 meq 03/26/18 09:36 03/26/18 09:47 K-Dur 20 Meq Tablet PO 03/26/18 09:37 40 meq O ONE Administration Potassium Chloride 40 meq 03/26/18 12:00 03/28/18 11:49 K-Dur 20 Meq Tablet PO 40 meq TIDWM EMILEE Administration Potassium Chloride 40 meq 03/29/18 08:00 03/29/18 08:37 K-Dur 20 Meq Tablet PO Not Given WB [facility] Spironolactone 25 mg 03/26/18 14:30 03/26/18 14:47 Aldactone 25 Mg PO 03/26/18 14:31 25 mg ONE TIME ONE Administration - Constitutional no acute distress, well nourished, cooperative - Routine HEENT Exam Head: Present: normocephalic ENT: Present: mucous membranes moist - Routine Neck Exam Absent: JVD, carotid bruit - Routine Chest/Breast/Axilla Exam Chest wall: Absent: tenderness - Routine Respiratory Exam Present: CTA bilaterally, diminished air movement (bases). Absent: dyspnea, rales, wheezes - Routine Cardiovascular Exam Present: RRR, no murmur - Routine Abdominal Exam Present: soft, non tender - Routine Extremities Exam Present: no edema - Routine Skin Exam Present: intact, dry, warm - Routine Neurological Exam Present: alert, oriented X3 - Routine Psychiatric Exam Present: normal affect, normal thought process - Urinary Catheter Management Urethral Cath placed during this visit: yes Insertion date: 03/26/18 Insertion time: 12:24 Results 03/30/18 04:56 03/31/18 07:56 CBC 03/30/18 Range/Units 04:56 WBC 4.9 (4.5-11.0) T/MM3 RBC 3.59 L (4.00-5.20) M/MM3 Hgb 10.5 L (12-16) GM/DL Hct 33.5 L (36-46) % Plt Count 179 (130-400) T/MM3 Comprehensive Metabolic Panel 03/30/18 Range/Units 04:56 Sodium 142 (136-146) MEQ/L Potassium 4.6 (3.6-5) MEQ/L Chloride 102 (98-107) MEQ/L Carbon Dioxide 31 H (22-30) MEQ/L BUN 39.0 H (7-17) MG/DL Creatinine 1.9 H (0.7-1.2) mg/dL Glucose 98 (65-110) MG/DL Calcium 9.0 (8.4-10.2) MG/DL Intake and Output 03/29/18 03/30/18 03/30/18 22:59 06:59 14:59 Intake Total 936 / 936 500 / 500 1108 / 1108 Output Total 175 / 175 825 / 825 400 / 400 Balance 761 / 761 -325 / -325 708 / 708 Intake: IV 250 / 250 500 / 500 1/2 Ns 250 ml @ 75 mls/hr IV . 250 / 250 Q3H20M EMILEE Rx#:[id number] Ns 500 ml @ 75 mls/hr IV . 500 / 500 Q6H40M [facility] Rx#:[id number] Oral 686 / 686 1108 / 1108 Output: Urine Amount (Catheter) 175 / 175 825 / 825 400 / 400 Other: Urine Appearance Cloudy Clear Urine Color Yellow Yellow Urine Odor Normal Normal Weight 139 lb 1.787 oz Patient Weight 08/16/18 06:59 Weight 139 lb 1.787 oz Assessment and Plan - Assessment and Plan (1) CHF (congestive heart failure) Problem details: diastolic Status: Acute (2) CAD (coronary artery disease) Status: Chronic (3) Essential (primary) hypertension Status: Chronic (4) CKD (chronic kidney disease) Status: Chronic (5) Hypothyroidism Status: Chronic (6) Hypomagnesemia Status: Acute - Assessment and Plan 03/28/18 Acute diastolic heart failure - 03/09/2018 echo: EF 55%, NWMA, LVH, Basal REI, TSMM, No LVOT obstruction, LVDD grade1, mild LAE, AoV sclerosis, MAC, trace MR, mild TR, [id number], trace PI. - Symptoms of SOB, LAIRD, orthopnea, LAIRD - 03/26 CXR: severe pulmonary edema. BNP 3560. lungs with crackles. - Received lasix 40mg IV q 8hrs for good U/O > 4000 so far. Wt decreased. symptom improved. - agree with lasix, will monitor wts, I/O, lytes and renal function, Cr and BUN ok. Respiratory failure - now on room air CAD Hx CABG 2000 - start ASA. Not sure why she is not on statin. HTN - agree with metoprolol and losartan. and lasix. HypoK and Hypomag - replaced by attending. CKD - Cr wnl. has seen Dr. Reddy in the past. Hx NHL hypothyroidism 03/28/18 - JVD and pedal edema remain, on O2 at 2L/NC - Continue Lasix 40mg BID for today - monitor renal and electrolytes 03/29/18 BUN 36/ SCr 1.8, no JVD today - hold diuretic and Potassium - Give 500ml NS at 75mL/hr 03/30/18 1/2 NS at 125ml for 500ml per hospitalist for elevated renal - continue to hold diuresis BUN 39 / Scr 1.9 - HR and BP stable Hospital Course Summary Disclaimer: The visit summary below is not to be considered part of the above Progress Note. Hospital Course: 03/26/18 Admit patient to inpatient status under the care of Dr. Chun. Consult Dr. Eubanks given her pulmonary edema and significant cardiac history with recent medication changes. Given her pulmonary edema and hypoxia, she was given Lasix 40mg IV x 1 dose in ED with KCl. Continue 40mg IV q 8 hours. Continue KCl 40 mEq po TID WM given her hypokalemia on admission. Follow closely. Spironolactone 25mg x1. Monitor closely on telemetry with continuous pulse oximetry given her hypoxia and significant cardiac history. Patient does not use oxygen at home. Family reports yearly echocardiograms with Dr. Eubanks, though results are unknown and no known history of CHF. Monitor renal function closely - SCr 0.9 with GFR 60 on admission. Dry weight reportedly around 136 lbs. Weight in ED today was 152. Monitor daily weights closely. Espino catheter placed to monitor I&O closely. Recheck labs in AM to monitor blood counts, electrolytes and renal function. Patient is a DNR. Upon discharge, will return care to Dr. Mayes. 03/27/18 Clinically improving - O2 needs resolved. Net output 270 yesterday with 1700 today so far. Weight decreased to 143.88 pounds. Creatinine stable at 0.9 with BUN 10. Potassium improved to 3.6 but Mg still low at 1.3. Will continue with Lasix 40mg IV q8 hours - likely able to decrease tomorrow. MagOx 400mg BID initiated - will give extra dose today at noon. Continue Potassium 40mEq TID with meal - will need to decrease dose/frequency as potassium increases and diuretics decreased. Change SCD to SQ Lovenox as patient having tolerability problems with SCD ( interrupting sleep). PT/OT eval tomorrow to help increase functional status. <Geronimo Eubanks - Last Filed: 04/04/18 14:11> Exam Vital signs: Temperature 96.8 F 04/01/18 07:35 Pulse Rate 80 04/01/18 08:45 Respiratory Rate 18 04/01/18 07:35 Blood Pressure 123/65 04/01/18 07:35 Pulse Oximetry 96 04/01/18 08:45 Inpatient Medications: Discontinued Medications Generic Name Dose Route Start Last Admin Trade Name Freq PRN Reason Stop Dose Admin Acetaminophen 650 mg 03/26/18 12:10 Tylenol PO Q5H PRN Discomfort Albuterol/Ipratropium 3 ml 03/26/18 09:00 03/26/18 09:23 Duoneb AEROSOL 03/26/18 09:01 3 ml O ONE Administration Artificial Tears 1 drop 03/27/18 09:00 04/01/18 09:16 Refresh Celluvisc RIGHT EYE 1 drop DAILY EMILEE Administration Cholecalciferol 4,000 unit 03/27/18 09:00 04/01/18 09:18 Vit. D-3 PO 4,000 unit DAILY EMILEE Administration Clonidine HCl 0.1 mg 03/26/18 09:11 03/26/18 09:20 Catapres PO 03/26/18 09:12 0.1 mg O ONE Administration Clonidine HCl 0.1 mg 03/26/18 21:00 04/01/18 09:19 Catapres PO 0.1 mg BID EMILEE Administration Clonidine HCl 0.1 mg 03/26/18 16:06 03/26/18 17:21 Catapres PO 03/26/18 16:07 0.1 mg ONE TIME ONE Administration Cyanocobalamin 2,000 mcg 03/27/18 09:00 04/01/18 09:17 Vit. B-12 PO 2,000 mcg DAILY EMILEE Administration Enoxaparin Sodium 40 mg 03/28/18 17:15 04/01/18 09:16 Lovenox SQ 40 mg DAILY EMILEE Administration Folic Acid 1 mg 03/27/18 09:00 04/01/18 09:18 Folate PO 1 mg DAILY EMILEE Administration Furosemide 40 mg 03/26/18 09:58 03/26/18 10:33 Lasix 40 Mg/4 Ml IVP 03/26/18 09:59 40 mg O ONE Administration Furosemide 40 mg 03/26/18 17:00 03/28/18 09:31 Lasix 40 Mg/4 Ml IVP 40 mg Q8HR EMILEE Administration Furosemide 40 mg 03/28/18 17:00 03/28/18 18:21 Lasix 40 Mg Tab PO Not Given 0900,1700 EMILEE Furosemide 20 mg 03/29/18 09:00 Lasix 40 Mg Tab PO 0900,1700 EMILEE Furosemide 40 mg 03/28/18 19:45 03/29/18 08:23 Lasix 40 Mg Tab PO 40 mg 0900,1700 EMILEE Administration Furosemide 40 mg 04/01/18 09:00 04/01/18 09:18 Lasix 40 Mg Tab PO 40 mg DAILY EMILEE Administration Sodium Chloride 250 mls @ 75 mls/hr 03/29/18 14:16 03/29/18 18:10 1/2 Normal Saline IV Infused .Q3H20M E[facility] Infusion Sodium Chloride 500 mls @ 75 mls/hr 03/29/18 14:45 03/30/18 00:54 Normal Saline IV Infused .Q6H40M [facility] Infusion Sodium Chloride 500 mls @ 125 mls/hr 03/30/18 12:30 03/30/18 17:01 1/2 Normal Saline IV Infused .Q4H [facility] Infusion Lorazepam 0.25 mg 03/26/18 12:16 Ativan Inj IVP Q6H PRN Anxiety Losartan Potassium 100 mg 03/27/18 09:00 04/01/18 09:18 Cozaar PO 100 mg DAILY EMILEE Administration Magnesium Oxide 400 mg 03/26/18 16:00 04/01/18 09:18 Magox PO 400 mg BIDWM EMILEE Administration Magnesium Oxide 400 mg 03/27/18 12:00 03/27/18 11:29 Magox PO 03/27/18 12:01 400 mg O ONE Administration Metoprolol Tartrate 50 mg 03/26/18 17:30 04/01/18 09:17 Lopressor PO 50 mg BIDWM EMILEE Administration Mirtazapine 15 mg 03/26/18 21:00 03/31/18 21:41 Remeron PO 15 mg HS EMILEE Administration Nystatin 1 applic 04/01/18 09:00 04/01/18 09:27 Mycostatin TP 1 applic BID EMILEE Administration Omeprazole 20 mg 03/26/18 20:00 04/01/18 06:26 Prilosec PO 20 mg BID/E EMILEE Administration Ondansetron HCl 4 mg 03/26/18 12:10 Zofran IVP Q6H PRN Nausea &/or vomiting Pharmacy Consult 1 each 03/29/18 13:44 03/29/18 14:49 Pharmacy Consult - Fall Risk 03/29/18 13:45 Not Given ONE TIME ONE Pharmacy Consult 1 each 03/31/18 11:44 03/31/18 14:26 Pharmacy Consult - Fall Risk 03/31/18 11:45 Not Given ONE TIME ONE Pneumococcal Polyvalent Vaccine 0.5 ml 03/28/18 16:08 03/28/18 18:32 Pneumovax 23 IM 03/28/18 16:09 Not Given .ONCE ONE Polyethylene Glycol 17 gm 03/26/18 11:52 Miralax PO DAILY PRN Constipation Potassium Chloride 40 meq 03/26/18 09:36 03/26/18 09:47 K-Dur 20 Meq Tablet PO 03/26/18 09:37 40 meq O ONE Administration Potassium Chloride 40 meq 03/26/18 12:00 03/28/18 11:49 K-Dur 20 Meq Tablet PO 40 meq TIDWM EMILEE Administration Potassium Chloride 40 meq 03/29/18 08:00 03/29/18 08:37 K-Dur 20 Meq Tablet PO Not Given WB EMILEE Simvastatin 20 mg 03/26/18 21:00 03/31/18 21:42 Zocor PO 20 mg HS EMILEE Administration Sodium Chloride 10 - 80 ml 03/26/18 08:25 03/28/18 04:15 Iv Flush IVF 30 ml PRN PRN Administration Flushing Spironolactone 25 mg 03/26/18 14:30 03/26/18 14:47 Aldactone 25 Mg PO 03/26/18 14:31 25 mg ONE TIME ONE Administration Sucralfate 1 gm 03/26/18 17:00 04/01/18 06:26 Carafate PO 1 gm ACHS EMILEE Administration Trazodone HCl 100 mg 03/26/18 21:00 03/31/18 21:41 Desyrel PO 100 mg HS EMILEE Administration - Urinary Catheter Management Urethral Cath placed during this visit: no Results 03/30/18 04:56 04/01/18 04:51 Assessment and Plan - Assessment and Plan (1) CHF (congestive heart failure) Problem details: diastolic Status: Acute (2) CAD (coronary artery disease) Status: Chronic (3) Essential (primary) hypertension Status: Chronic (4) CKD (chronic kidney disease) Status: Chronic (5) Hypothyroidism Status: Chronic (6) Hypomagnesemia Status: Acute - Attestation Attestation Narrative: 04/04/18 14:11 Recommendation After examining the patient I agree with the above assessment. I am involved in the formulation of the patient's plan of care. Hospital Course Summary Disclaimer: The visit summary below is not to be considered part of the above Progress Note.
[2018-03-30] MEDS: SIMVASTATIN 20 MG TABLET PO SCH (20:12)
[2018-03-30] MEDS: TRAZODONE 100 MG TABLET PO SCH (20:12)
[2018-03-30] MEDS: MIRTAZAPINE 15 MG TABLET PO SCH (20:12)
[2018-03-31] MEDS: OMEPRAZOLE 20 MG CAPSULE PO SCH ×2 (05:31→20:12)
[2018-03-31] MEDS: SUCRALFATE 1 GM TABLET PO SCH ×4 (05:31→21:41)
[2018-03-31] MEDS: CYANOCOBALAMIN (B-12) 500mcg TABLET PO SCH (08:39)
[2018-03-31] MEDS: REFRESH CELLUVISC 1% Eye Drops 0.4ml RIGHT EYE SCH (08:41)
[2018-03-31] MEDS: FOLIC ACID 1 MG TABLET PO SCH (08:41)
[2018-03-31] MEDS: LOSARTAN 100 MG TABLET PO SCH (08:41)
[2018-03-31] MEDS: MAGNESIUM OXIDE 400 MG TABLET PO SCH ×2 (08:41→17:25)
[2018-03-31] MEDS: ENOXAPARIN 40 MG/0.4 ML INJECTION SQ SCH (08:51)
--- NOTE | 2018-03-31 10:29 | Progress Note ---
- Date 03/31/18 Subjective: Holli reports that she is breathing and feeling much better overall. She was placed back on 0.5L of O2 yesterday after she was saturating 84% following a walk. She's been on this all night. During her walk she denied feeling dyspneic , weak, or lightheaded. She denies chest pain or palpitations. She denies abdominal pain, n/v, and her appetite is starting to return. Objective Vital signs: Temperature 96.8 F 03/31/18 08:34 Pulse Rate 76 03/31/18 08:34 Respiratory Rate 18 03/31/18 08:34 Blood Pressure 127/69 03/31/18 08:34 Pulse Oximetry 92 03/31/18 08:34 Height/Weight/BMI: Height 1.55 m Weight 63.2 kg Body Mass Index 27.1 - Constitutional Present: no acute distress, well nourished, well developed - Routine HEENT Exam Head: Present: normocephalic Eye: Present: PERRL. Absent: conjunctival icterus, scleral injection - Routine Respiratory Exam Present: diminished air movement (slightly diminished in bases) - Routine Cardiovascular Exam Present: RRR, S1, S2 - Routine Abdominal Exam Present: soft, normoactive bowel sounds, non distended, non tender - Routine Extremities Exam Present: no edema. Absent: calf tenderness - Routine Musculoskeletal Exam Musculoskeletal: Present: moving extremities well - Routine Skin Exam Present: intact, dry, warm - Routine Neurological Exam Present: alert, oriented X3, CN II-XII intact, normal speech - Routine Psychiatric Exam Present: normal affect, normal thought process, cooperative Results - Labs CBC & Chem 7: 03/30/18 04:56 03/31/18 07:56 Assessment and Plan (1) Pulmonary edema Current visit: Yes Status: Resolved (2) Respiratory failure with hypoxia Current visit: Yes Status: Resolved (3) Fluid overload, unspecified Current visit: Yes Status: Resolved Assessment and Plan: Assessment Respiratory failure with hypoxia (POA) Pulmonary edema Uncontrolled hypertension (POA) Fluid overload Hypernatremia (POA) - resolved Hypokalemia (POA) - resolved Hypomagnesemia (POA) - resolved Contraction alkalosis from diuresis Non-Hodgkins lymphoma - follows with Dr. Ace Hypertension Hyperlipidemia CAD with prior CABG Chronic kidney disease, stage III - average GFR ~50 GERD History of PUD with bleeding ulcers requiring blood transfusions Chronic anemia Insomnia Macular degeneration History of UTI Borderline personality disorder Gen debility secondary to declining cardiopulmonary status. Plan Desaturated to 84% on room air with ambulation. Will obtain overnight oximetry tonight and ambulatory oximetry in am. Renal function improved following 500 mL fluid bolus yesterday. Creatinine 1.4, BUN 32. Will discuss when to resume home Lasix/KDur with cardiology. Start bladder retraining, dc catheter in am. Discussed with Dr. Hobson; likely discharge tomorrow if she continues to do well. DVT Prophylaxis: SCD's GI Prophylaxis: Omeprazole Resuscitation Status: Do Not Resuscitate - Physician Narrative Physician: Arcelia Hobson MD Narrative: Date: 03/31/18 Time: 1026 I have independently interviewed and examined patient. Patient chart reviewed. Case discussed with my MEDICAL OFFICE SPECIALIST. Care plan developed with my supervision, agree with above. Patient subjectively feels better. +700 mL fluid balance from yesterday. BUN 32 , serum creatinine improved to 1.4. Case discussed with Dr. Eubanks. Plan to start oral Lasix 40 mg daily from tomorrow morning. Case discussed with patient and her daughter present at bedside. Patient did have oxygen desaturations 84% on room air on attempted ambulation. Nocturnal oximetry ordered for tonight and exercise oximetry ordered for tomorrow morning. Physical exam: AAO x 3, NAD PERRLA, EOMI S1 and S2 heard on auscultation, no murmurs Lungs clear to auscultation bilaterally, no wheezing, no crackles Abdomen soft, nontender, positive bowel sounds No edema bilateral lower extremities. Assessment: Pulmonary edema, resolved. Acute kidney injury from contraction alkalosis, improving. Hypokalemia, resolved, hypomagnesemia, resolved. Non- Hodgkin's lymphoma, hyperlipidemia, coronary artery disease, hypertension, CKD stage III, GERD, chronic anemia, insomnia, borderline personality disorder, history of peptic ulcer disease Plan: Case discussed with cardiology, Dr. Eubanks recommendation to start oral Lasix 40 mg daily from tomorrow morning. Nocturnal oximetry ordered for tonight, exercise oximetry ordered for tomorrow morning. We will initiate bladder retraining and discontinue Espino catheter in the morning. Hospital Course Summary Disclaimer: The visit summary below is not to be considered part of the above Progress Note. Hospital Course: 8/11/18 Admit patient to inpatient status under the care of Dr. Chun. Consult Dr. Eubanks given her pulmonary edema and significant cardiac history with recent medication changes. Given her pulmonary edema and hypoxia, she was given Lasix 40mg IV x 1 dose in ED with KCl. Continue 40mg IV q 8 hours. Continue KCl 40 mEq po TID WM given her hypokalemia on admission. Follow closely. Spironolactone 25mg x1. Monitor closely on telemetry with continuous pulse oximetry given her hypoxia and significant cardiac history. Patient does not use oxygen at home. Family reports yearly echocardiograms with Dr. Eubanks, though results are unknown and no known history of CHF. Monitor renal function closely - SCr 0.9 with GFR 60 on admission. Dry weight reportedly around 136 lbs. Weight in ED today was 152. Monitor daily weights closely. Espino catheter placed to monitor I&O closely. Patient is a DNR. Upon discharge, will return care to Dr. Mayes. 03/27/18 Clinically improving - O2 needs resolved. Net output 270 yesterday with 1700 today so far. Weight decreased to 143.88 pounds. Creatinine stable at 0.9 with BUN 10. Potassium improved to 3.6 but Mg still low at 1.3. Will continue with Lasix 40mg IV q8 hours - likely able to decrease tomorrow. MagOx 400mg BID initiated - will give extra dose today at noon. Continue Potassium 40mEq TID with meal - will need to decrease dose/frequency as potassium increases and diuretics decreased. Change SCD to SQ Lovenox as patient having tolerability problems with SCD ( interrupting sleep). PT/OT eval tomorrow to help increase functional status. 03/29/18 -5.1 L fluid balance since admission and +0.9 L fluid balance since yesterday. BNP 3560 on admission, dropped to 519 today. Serum creatinine elevated at 5.2. Will stop oral potassium chloride supplementation. Will monitor potassium level. BUN increased to 36, serum creatinine 1.8. Stop oral Lasix. We will provide IV normal saline 500 mL fluid challenge. Patient evaluated by OT and PT, recommendation for discharge back to assisted living facility. Patient's blood pressure 100/54 this morning. Home medication losartan held. Clonidine dose held for today and will be restarted tomorrow morning. 8/15/18 -4.1 L fluid balance since admission and +1.3 L fluid balance since yesterday. BNP 3560 on admission, dropped to 519 thereafter. Serum potassium improved to 4.6. Will monitor potassium level. BUN increased to 39, serum creatinine 1.9. We'll continue to hold Lasix. We will provide 500 mL IV half normal saline fluid challenge. Patient's blood pressure 115/65 this morning. Home medication losartan held. Clonidine dose held for today and will be restarted tomorrow morning. 03/31/18 Desaturated to 84% on room air with ambulation. Will obtain overnight oximetry tonight and ambulatory oximetry in am. Start bladder retraining, dc catheter in am. Renal function improved following 500 mL fluid bolus yesterday. Creatinine 1.4, BUN 32. Will discuss when to resume home Lasix/KDur with cardiology.
[2018-03-31] MEDS ORDERED: FALL RISK - PHARMACY CONSULT MC ONE (11:44)
--- NOTE | 2018-03-31 12:20 | Cardiology Progress Note ---
<Treasure Ortiz M - Last Filed: 03/31/18 14:41> Subjective Principal diagnosis: chf Interval history: Holli is seen in follow up for pulmonary edema and heart failure. She is sitting up in her bed, in no distress. She denies chest pain, pressure, dyspnea. Exam Vital signs: Temperature 97.6 F 03/31/18 11:58 Pulse Rate 72 03/31/18 11:58 Respiratory Rate 18 03/31/18 11:58 Blood Pressure 132/67 03/31/18 11:58 Pulse Oximetry 94 03/31/18 11:58 Inpatient Medications: Generic Name Dose Route Start Last Admin Trade Name Freq PRN Reason Stop Dose Admin Acetaminophen 650 mg 03/26/18 12:10 Tylenol PO Q5H PRN Discomfort Artificial Tears 1 drop 03/27/18 09:00 03/31/18 08:41 Refresh Celluvisc RIGHT EYE 1 drop DAILY EMILEE Administration Cholecalciferol 4,000 unit 03/27/18 09:00 03/31/18 08:40 Vit. D-3 PO 4,000 unit DAILY EMILEE Administration Clonidine HCl 0.1 mg 03/26/18 21:00 03/31/18 08:39 Catapres PO Not Given BID EMILEE Cyanocobalamin 2,000 mcg 03/27/18 09:00 03/31/18 08:39 Vit. B-12 PO 2,000 mcg DAILY EMILEE Administration Enoxaparin Sodium 40 mg 03/28/18 17:15 03/31/18 08:51 Lovenox SQ 40 mg DAILY EMILEE Administration Folic Acid 1 mg 03/27/18 09:00 03/31/18 08:41 Folate PO 1 mg DAILY EMILEE Administration Lorazepam 0.25 mg 03/26/18 12:16 Ativan Inj IVP Q6H PRN Anxiety Losartan Potassium 100 mg 03/27/18 09:00 03/31/18 08:41 Cozaar PO 100 mg DAILY EMILEE Administration Magnesium Oxide 400 mg 03/26/18 16:00 03/31/18 08:41 Magox PO 400 mg BIDWM EMILEE Administration Metoprolol Tartrate 50 mg 03/26/18 17:30 03/31/18 08:41 Lopressor PO 50 mg BIDWM EMILEE Administration Mirtazapine 15 mg 03/26/18 21:00 03/30/18 20:12 Remeron PO 15 mg HS EMILEE Administration Omeprazole 20 mg 03/26/18 20:00 03/31/18 05:31 Prilosec PO 20 mg BID/E EMILEE Administration Ondansetron HCl 4 mg 03/26/18 12:10 Zofran IVP Q6H PRN Nausea &/or vomiting Polyethylene Glycol 17 gm 03/26/18 11:52 Miralax PO DAILY PRN Constipation Simvastatin 20 mg 03/26/18 21:00 03/30/18 20:12 Zocor PO 20 mg HS EMILEE Administration Sodium Chloride 10 - 80 ml 03/26/18 08:25 03/28/18 04:15 Iv Flush IVF 30 ml PRN PRN Administration Flushing Sucralfate 1 gm 03/26/18 17:00 03/31/18 05:31 Carafate PO 1 gm ACHS EIMLEE Administration Trazodone HCl 100 mg 03/26/18 21:00 03/30/18 20:12 Desyrel PO 100 mg HS EMILEE Administration Discontinued Medications Generic Name Dose Route Start Last Admin Trade Name Freq PRN Reason Stop Dose Admin Albuterol/Ipratropium 3 ml 03/26/18 09:00 03/26/18 09:23 Duoneb AEROSOL 03/26/18 09:01 3 ml O ONE Administration Clonidine HCl 0.1 mg 03/26/18 09:11 03/26/18 09:20 Catapres PO 03/26/18 09:12 0.1 mg O ONE Administration Clonidine HCl 0.1 mg 03/26/18 16:06 03/26/18 17:21 Catapres PO 03/26/18 16:07 0.1 mg ONE TIME ONE Administration Furosemide 40 mg 03/26/18 09:58 03/26/18 10:33 Lasix 40 Mg/4 Ml IVP 03/26/18 09:59 40 mg O ONE Administration Furosemide 40 mg 03/26/18 17:00 03/28/18 09:31 Lasix 40 Mg/4 Ml IVP 40 mg Q8HR EMILEE Administration Furosemide 40 mg 03/28/18 17:00 03/28/18 18:21 Lasix 40 Mg Tab PO Not Given 0900,1700 EMILEE Furosemide 20 mg 03/29/18 09:00 Lasix 40 Mg Tab PO 0900,1700 EMILEE Furosemide 40 mg 03/28/18 19:45 03/29/18 08:23 Lasix 40 Mg Tab PO 40 mg 0900,1700 EMILEE Administration Sodium Chloride 250 mls @ 75 mls/hr 03/29/18 14:16 03/29/18 18:10 1/2 Normal Saline IV Infused .Q3H20M EMILEE Infusion Sodium Chloride 500 mls @ 75 mls/hr 03/29/18 14:45 03/30/18 00:54 Normal Saline IV Infused .Q6H40M EMILEE Infusion Sodium Chloride 500 mls @ 125 mls/hr 03/30/18 12:30 03/30/18 17:01 1/2 Normal Saline IV Infused .Q4H EMILEE Infusion Magnesium Oxide 400 mg 03/27/18 12:00 03/27/18 11:29 Magox PO 03/27/18 12:01 400 mg O ONE Administration Pharmacy Consult 1 each 03/29/18 13:44 03/29/18 14:49 Pharmacy Consult - Fall Risk 03/29/18 13:45 Not Given ONE TIME ONE Pharmacy Consult 1 each 03/31/18 11:44 Pharmacy Consult - Fall Risk 03/31/18 11:45 ONE TIME ONE Pneumococcal Polyvalent Vaccine 0.5 ml 03/28/18 16:08 03/28/18 18:32 Pneumovax 23 IM 03/28/18 16:09 Not Given .ONCE ONE Potassium Chloride 40 meq 03/26/18 09:36 03/26/18 09:47 K-Dur 20 Meq Tablet PO 03/26/18 09:37 40 meq O ONE Administration Potassium Chloride 40 meq 03/26/18 12:00 03/28/18 11:49 K-Dur 20 Meq Tablet PO 40 meq TIDWM EMILEE Administration Potassium Chloride 40 meq 03/29/18 08:00 03/29/18 08:37 K-Dur 20 Meq Tablet PO Not Given WB [facility] Spironolactone 25 mg 03/26/18 14:30 03/26/18 14:47 Aldactone 25 Mg PO 03/26/18 14:31 25 mg ONE TIME ONE Administration - Constitutional no acute distress, well nourished, cooperative - Routine HEENT Exam Head: Present: normocephalic ENT: Present: mucous membranes moist - Routine Neck Exam Absent: JVD, carotid bruit - Routine Chest/Breast/Axilla Exam Chest wall: Absent: tenderness - Routine Respiratory Exam Present: CTA bilaterally, diminished air movement (bases). Absent: dyspnea - Routine Cardiovascular Exam Present: RRR, S1, S2, no murmur - Routine Abdominal Exam Present: soft, non tender - Routine Extremities Exam Present: no edema - Routine Skin Exam Present: intact, dry, warm - Routine Neurological Exam Present: alert, oriented X3 - Routine Psychiatric Exam Present: normal affect, normal thought process - Urinary Catheter Management Urethral Cath placed during this visit: yes Insertion date: 03/26/18 Insertion time: 12:24 Results 03/30/18 04:56 03/31/18 07:56 Comprehensive Metabolic Panel 03/31/18 Range/Units 07:56 Sodium 145 (136-146) MEQ/L Potassium 4.2 (3.6-5) MEQ/L Chloride 103 (98-107) MEQ/L Carbon Dioxide 31 H (22-30) MEQ/L BUN 32.0 H (7-17) MG/DL Creatinine 1.4 H D (0.7-1.2) mg/dL Glucose 97 (65-110) MG/DL Calcium 9.0 (8.4-10.2) MG/DL Intake and Output 03/30/18 03/31/18 03/31/18 22:59 06:59 14:59 Intake Total 940 / 940 50 / 50 354 / 354 Output Total 925 / 925 Balance 940 / 940 -875 / -875 354 / 354 Intake: IV 500 / 500 1/2 Ns 500 ml @ 125 mls/hr IV . 500 / 500 Q4H [facility] Rx#:[id number] Oral 440 / 440 50 / 50 354 / 354 Output: Urine Amount (Catheter) 925 / 925 Other: Urine Appearance Clear Urine Color Pale Yellow Urine Odor Normal Stool Color Brown Yellow Stool Consistency Soft Size of Bowel Movement Moderate # Bowel Movements 1 Weight 139 lb 5.314 oz Patient Weight 04/01/18 06:59 Weight 139 lb 5.314 oz Assessment and Plan - Assessment and Plan (1) CHF (congestive heart failure) Problem details: diastolic Status: Acute (2) CAD (coronary artery disease) Status: Chronic (3) Essential (primary) hypertension Status: Chronic (4) CKD (chronic kidney disease) Status: Chronic (5) Hypothyroidism Status: Chronic (6) Hypomagnesemia Status: Acute - Assessment and Plan 03/28/18 Acute diastolic heart failure - 03/09/2018 echo: EF 55%, NWMA, LVH, Basal REI, TSMM, No LVOT obstruction, LVDD grade1, mild LAE, AoV sclerosis, MAC, trace MR, mild TR, [id number], trace PI. - Symptoms of SOB, LAIRD, orthopnea, LAIRD - 03/26 CXR: severe pulmonary edema. BNP 3560. lungs with crackles. - Received lasix 40mg IV q 8hrs for good U/O > 4000 so far. Wt decreased. symptom improved. - agree with lasix, will monitor wts, I/O, lytes and renal function, Cr and BUN ok. Respiratory failure - now on room air CAD Hx CABG 2000 - start ASA. Not sure why she is not on statin. HTN - agree with metoprolol and losartan. and lasix. HypoK and Hypomag - replaced by attending. CKD - Cr wnl. has seen Dr. Reddy in the past. Hx NHL hypothyroidism 03/28/18 - JVD and pedal edema remain, on O2 at 2L/NC - Continue Lasix 40mg BID for today - monitor renal and electrolytes 03/29/18 BUN 36/ SCr 1.8, no JVD today - hold diuretic and Potassium - Give 500ml NS at 75mL/hr 03/30/18 1/2 NS at 125ml for 500ml per hospitalist for elevated renal - continue to hold diuresis BUN 39 / Scr 1.9 - HR and BP stable 03/31/18 - Resume Clonidine this evening please. - Renal function improving, resume Lasix 40mg po daily in am Hospital Course Summary Disclaimer: The visit summary below is not to be considered part of the above Progress Note. Hospital Course: 03/26/18 Admit patient to inpatient status under the care of Dr. Chun. Consult Dr. Eubanks given her pulmonary edema and significant cardiac history with recent medication changes. Given her pulmonary edema and hypoxia, she was given Lasix 40mg IV x 1 dose in ED with KCl. Continue 40mg IV q 8 hours. Continue KCl 40 mEq po TID WM given her hypokalemia on admission. Follow closely. Spironolactone 25mg x1. Monitor closely on telemetry with continuous pulse oximetry given her hypoxia and significant cardiac history. Patient does not use oxygen at home. Family reports yearly echocardiograms with Dr. Eubanks, though results are unknown and no known history of CHF. Monitor renal function closely - SCr 0.9 with GFR 60 on admission. Dry weight reportedly around 136 lbs. Weight in ED today was 152. Monitor daily weights closely. Espino catheter placed to monitor I&O closely. Recheck labs in AM to monitor blood counts, electrolytes and renal function. Patient is a DNR. Upon discharge, will return care to Dr. Mayes. 03/27/18 Clinically improving - O2 needs resolved. Net output 270 yesterday with 1700 today so far. Weight decreased to 143.88 pounds. Creatinine stable at 0.9 with BUN 10. Potassium improved to 3.6 but Mg still low at 1.3. Will continue with Lasix 40mg IV q8 hours - likely able to decrease tomorrow. MagOx 400mg BID initiated - will give extra dose today at noon. Continue Potassium 40mEq TID with meal - will need to decrease dose/frequency as potassium increases and diuretics decreased. Change SCD to SQ Lovenox as patient having tolerability problems with SCD ( interrupting sleep). PT/OT eval tomorrow to help increase functional status. <Geronimo Eubanks - Last Filed: 04/04/18 14:30> Exam Vital signs: Temperature 96.8 F 04/01/18 07:35 Pulse Rate 80 04/01/18 08:45 Respiratory Rate 18 04/01/18 07:35 Blood Pressure 123/65 04/01/18 07:35 Pulse Oximetry 96 04/01/18 08:45 Inpatient Medications: Discontinued Medications Generic Name Dose Route Start Last Admin Trade Name Freq PRN Reason Stop Dose Admin Acetaminophen 650 mg 03/26/18 12:10 Tylenol PO Q5H PRN Discomfort Albuterol/Ipratropium 3 ml 03/26/18 09:00 03/26/18 09:23 Duoneb AEROSOL 03/26/18 09:01 3 ml O ONE Administration Artificial Tears 1 drop 03/27/18 09:00 04/01/18 09:16 Refresh Celluvisc RIGHT EYE 1 drop DAILY EMILEE Administration Cholecalciferol 4,000 unit 03/27/18 09:00 04/01/18 09:18 Vit. D-3 PO 4,000 unit DAILY EMILEE Administration Clonidine HCl 0.1 mg 03/26/18 09:11 03/26/18 09:20 Catapres PO 03/26/18 09:12 0.1 mg O ONE Administration Clonidine HCl 0.1 mg 03/26/18 21:00 04/01/18 09:19 Catapres PO 0.1 mg BID EMILEE Administration Clonidine HCl 0.1 mg 03/26/18 16:06 03/26/18 17:21 Catapres PO 03/26/18 16:07 0.1 mg ONE TIME ONE Administration Cyanocobalamin 2,000 mcg 03/27/18 09:00 04/01/18 09:17 Vit. B-12 PO 2,000 mcg DAILY EMILEE Administration Enoxaparin Sodium 40 mg 03/28/18 17:15 04/01/18 09:16 Lovenox SQ 40 mg DAILY EMILEE Administration Folic Acid 1 mg 03/27/18 09:00 04/01/18 09:18 Folate PO 1 mg DAILY EMILEE Administration Furosemide 40 mg 03/26/18 09:58 03/26/18 10:33 Lasix 40 Mg/4 Ml IVP 03/26/18 09:59 40 mg O ONE Administration Furosemide 40 mg 03/26/18 17:00 03/28/18 09:31 Lasix 40 Mg/4 Ml IVP 40 mg Q8HR EMILEE Administration Furosemide 40 mg 03/28/18 17:00 03/28/18 18:21 Lasix 40 Mg Tab PO Not Given 0900,1700 EMILEE Furosemide 20 mg 03/29/18 09:00 Lasix 40 Mg Tab PO 0900,1700 EMILEE Furosemide 40 mg 03/28/18 19:45 03/29/18 08:23 Lasix 40 Mg Tab PO 40 mg 0900,1700 EMILEE Administration Furosemide 40 mg 04/01/18 09:00 04/01/18 09:18 Lasix 40 Mg Tab PO 40 mg DAILY EMILEE Administration Sodium Chloride 250 mls @ 75 mls/hr 03/29/18 14:16 03/29/18 18:10 1/2 Normal Saline IV Infused .Q3H20M EMILEE Infusion Sodium Chloride 500 mls @ 75 mls/hr 03/29/18 14:45 03/30/18 00:54 Normal Saline IV Infused .Q6H40M EMILEE Infusion Sodium Chloride 500 mls @ 125 mls/hr 03/30/18 12:30 03/30/18 17:01 1/2 Normal Saline IV Infused .Q4H EMILEE Infusion Lorazepam 0.25 mg 03/26/18 12:16 Ativan Inj IVP Q6H PRN Anxiety Losartan Potassium 100 mg 03/27/18 09:00 04/01/18 09:18 Cozaar PO 100 mg DAILY EMILEE Administration Magnesium Oxide 400 mg 03/26/18 16:00 04/01/18 09:18 Magox PO 400 mg BIDWM EMILEE Administration Magnesium Oxide 400 mg 03/27/18 12:00 03/27/18 11:29 Magox PO 03/27/18 12:01 400 mg O ONE Administration Metoprolol Tartrate 50 mg 03/26/18 17:30 04/01/18 09:17 Lopressor PO 50 mg BIDWM EMILEE Administration Mirtazapine 15 mg 03/26/18 21:00 03/31/18 21:41 Remeron PO 15 mg HS EMILEE Administration Nystatin 1 applic 04/01/18 09:00 04/01/18 09:27 Mycostatin TP 1 applic BID EMILEE Administration Omeprazole 20 mg 03/26/18 20:00 04/01/18 06:26 Prilosec PO 20 mg BID/E EMILEE Administration Ondansetron HCl 4 mg 03/26/18 12:10 Zofran IVP Q6H PRN Nausea &/or vomiting Pharmacy Consult 1 each 03/29/18 13:44 03/29/18 14:49 Pharmacy Consult - Fall Risk 03/29/18 13:45 Not Given ONE TIME ONE Pharmacy Consult 1 each 03/31/18 11:44 03/31/18 14:26 Pharmacy Consult - Fall Risk 03/31/18 11:45 Not Given ONE TIME ONE Pneumococcal Polyvalent Vaccine 0.5 ml 03/28/18 16:08 03/28/18 18:32 Pneumovax 23 IM 03/28/18 16:09 Not Given .ONCE ONE Polyethylene Glycol 17 gm 03/26/18 11:52 Miralax PO DAILY PRN Constipation Potassium Chloride 40 meq 03/26/18 09:36 03/26/18 09:47 K-Dur 20 Meq Tablet PO 03/26/18 09:37 40 meq O ONE Administration Potassium Chloride 40 meq 03/26/18 12:00 03/28/18 11:49 K-Dur 20 Meq Tablet PO 40 meq TIDWM EMILEE Administration Potassium Chloride 40 meq 03/29/18 08:00 03/29/18 08:37 K-Dur 20 Meq Tablet PO Not Given WB EMILEE Simvastatin 20 mg 03/26/18 21:00 03/31/18 21:42 Zocor PO 20 mg HS EMILEE Administration Sodium Chloride 10 - 80 ml 03/26/18 08:25 03/28/18 04:15 Iv Flush IVF 30 ml PRN PRN Administration Flushing Spironolactone 25 mg 03/26/18 14:30 03/26/18 14:47 Aldactone 25 Mg PO 03/26/18 14:31 25 mg ONE TIME ONE Administration Sucralfate 1 gm 03/26/18 17:00 04/01/18 06:26 Carafate PO 1 gm ACHS EMILEE Administration Trazodone HCl 100 mg 03/26/18 21:00 03/31/18 21:41 Desyrel PO 100 mg HS EMILEE Administration - Urinary Catheter Management Urethral Cath placed during this visit: no Results 03/30/18 04:56 04/01/18 04:51 Assessment and Plan - Assessment and Plan (1) CHF (congestive heart failure) Problem details: diastolic Status: Acute (2) CAD (coronary artery disease) Status: Chronic (3) Essential (primary) hypertension Status: Chronic (4) CKD (chronic kidney disease) Status: Chronic (5) Hypothyroidism Status: Chronic (6) Hypomagnesemia Status: Acute - Attestation Attestation Narrative: 04/04/18 14:30 Recommendation After examining the patient I agree with the above assessment. I am involved in the formulation of the patient's plan of care. Hospital Course Summary Disclaimer: The visit summary below is not to be considered part of the above Progress Note.
[2018-03-31] MEDS: MIRTAZAPINE 15 MG TABLET PO SCH (21:41)
[2018-03-31] MEDS: TRAZODONE 100 MG TABLET PO SCH (21:41)
[2018-03-31] MEDS: SIMVASTATIN 20 MG TABLET PO SCH (21:42)
[2018-04-01] MEDS: SUCRALFATE 1 GM TABLET PO SCH (06:26)
[2018-04-01] MEDS: OMEPRAZOLE 20 MG CAPSULE PO SCH (06:26)
[2018-04-01 07:38] VITALS: BP 123/65; RESP 18; TEMP 96.8
[2018-04-01 08:53] VITALS: PULSE 80; O2SAT 96
[2018-04-01] MEDS ORDERED: FUROSEMIDE 40 MG TABLET PO SCH (09:00)
[2018-04-01] MEDS: ENOXAPARIN 40 MG/0.4 ML INJECTION SQ SCH (09:16)
[2018-04-01] MEDS: REFRESH CELLUVISC 1% Eye Drops 0.4ml RIGHT EYE SCH (09:16)
[2018-04-01] MEDS: CYANOCOBALAMIN (B-12) 500mcg TABLET PO SCH (09:17)
[2018-04-01] MEDS: LOSARTAN 100 MG TABLET PO SCH (09:18)
[2018-04-01] MEDS: FOLIC ACID 1 MG TABLET PO SCH (09:18)
[2018-04-01] MEDS: MAGNESIUM OXIDE 400 MG TABLET PO SCH (09:18)
--- NOTE | 2018-04-01 10:09 | Discharge Summary ---
Discharge Information Date of admission: 03/26/18 10:04 Anticipated date of discharge: 04/01/18 Attending Physician: Arcelia Hobson MD Primary care physician: Walter Mayes MD Consults: Consulting Provider: Geronimo Eubanks Reason For Exam: pulmonary edema, heart failure Problems Reviewed?: Yes Respiratory failure with hypoxia (POA) - resolved Pulmonary edema/fluid overload - resolved Uncontrolled hypertension (POA) - improved Hypernatremia (POA) - resolved Hypokalemia (POA) - resolved Hypomagnesemia (POA) - resolved Contraction alkalosis from diuresis - resolved Non-Hodgkins lymphoma - follows with Dr. Ace Hypertension Hyperlipidemia CAD with prior CABG Chronic kidney disease, stage III - average GFR ~50 GERD History of PUD with bleeding ulcers requiring blood transfusions Chronic anemia Insomnia Macular degeneration History of UTI Borderline personality disorder Gen debility secondary to declining cardiopulmonary status. - Laboratory Labs: 03/30/18 04:56 04/01/18 04:51 Laboratory Tests 03/26/18 03/29/18 08:46 04:08 NT-Pro-B Natriuret Pep 3560 H 519 H - Radiology Radiology: Date of Exam: 03/26/18 PROCEDURE: XR chest 1V: Findings: New severe pulmonary edema with associated small effusions. Lower lobe airspace consolidation. No pneumothorax. Heart size and mediastinal contours are stable. Prior CABG. Right IJ port catheter. Impression: New severe pulmonary edema, likely due to CHF. = = = = = = = = = = = = = = = = = = = = = = = = = = = = = = = = = = = = = = = = = = = = = = = = = = = = = = = = = = = Date of Exam: 03/28/18 PROCEDURE: XR chest 2V: Findings: There are trace bilateral pleural effusions. Patient is status post median sternotomy. There is a right IJ port in place. No definite lobar consolidation. No definite mediastinal or hilar adenopathy. The trachea is midline. No significant tortuosity of the descending thoracic aorta. No subdiaphragmatic free air. Impression: Trace bilateral pleural effusions. No definite overt CHF. History of Present Illness HPI: Holli Torrez is a pleasant 87-year-old resident who resides at [facility] and currently follows with Dr. Mayes. Her daughter, Ngoc, whom is a RN, is present on exam and contributes to the history. On 02/26/18, Holli was seen at [facility] for evaluation of abdominal pain. She was found to have a UTI secondary to Klebsiella pneumoniae and was treated as an outpatient with Keflex. Following her evaluation in the ED, she was seen in clinic by Dr. Mayes on 02/28/18 at which time labs were obtained but the results were not available. Family reports that she seemed to be doing better. She was then seen by Dr. Eubanks for a routine visit on 03/09/18 regarding her history of CAD with prior CABG x 1 vessel and hypertension. She reports that he said "everything was good" and no medication changes were made. At the time of her evaluation with Dr. Eubanks she was reportedly on multiple antihypertensive medications including Lasix 80mg. According to the family, over the past few months, Dr. Mayes has been adjusting and eliminating her cardiac medications due to concern about her renal function. She suffered an acute kidney injury in 2013 at which time she established care with Dr. Reddy, nephrology. Family reports a known history of chronic kidney disease, stage III, with an average GFR of 50 per labs since 09/2017 with SCr 0.9 today. Due to her significantly improved renal function since 2013, she was released from Dr. Reddy's care with follow up only as needed. Family states that following her appointment with Dr. Eubanks, she was contacted via phone by Dr. Mayes regarding her recent labs. She had labs done at Dr. Mayes office on 02/28/18 but she is unsure if she had any additional labs following that. Based on the results of her labs, she was instructed to go to [facility] infusion center to receive 1L NS bolos which she received on 03/09/18. At that time, Dr. Mayes reportedly discontinued all of her cardiac medications with the exception of metoprolol and all potentially nephrotic medications including her GI medications, despite her known history of GERD and PUD with previous bleeding ulcers requiring blood transfusions. Since the discontinuation of her lasix and other medications on 03/09/18, family reports that she has progressively become more weak, complaining that her legs are heavy. Holli reports a average weight of ~136-140 pounds and was found to be 152 pounds on admission. She also complains of increased dyspnea which is worse with exertion and increasing lower extremity edema. Upon arrival to the ED, she was found to be hypoxic at 78% on room air and denies use of home oxygen. She was given Lasix 40mg IV with KCl and clonidine 0.1mg PO for her hypertension. Dr. Chun was contacted and she was admitted into inpatient status for further evaluation, pulmonary edema with fluid overload to receive IV diuresis with close monitoring. Objective Vital signs: Temperature 96.8 F 04/01/18 07:35 Pulse Rate 80 04/01/18 08:45 Respiratory Rate 18 04/01/18 07:35 Blood Pressure 123/65 04/01/18 07:35 Pulse Oximetry 96 04/01/18 08:45 Height/Weight/BMI: Height 1.55 m Weight 62.2 kg Body Mass Index 27.1 - Constitutional Present: no acute distress, well nourished, well developed - Routine HEENT Exam Head: Present: normocephalic Eye: Present: PERRL. Absent: conjunctival icterus, scleral injection - Routine Respiratory Exam Present: CTA bilaterally - Routine Cardiovascular Exam Present: RRR, S1, S2 - Routine Abdominal Exam Present: soft, normoactive bowel sounds, non distended, non tender - Routine Exam External: Present: erythema (rosalind) - Routine Extremities Exam Present: no edema - Routine Musculoskeletal Exam Musculoskeletal: Present: moving extremities well - Routine Neurological Exam Present: alert, oriented X3, CN II-XII intact, normal speech - Routine Psychiatric Exam Present: normal affect, normal thought process, cooperative Hospital Course This is a general summary of the patient's hospital course. For more details refer to the complete medical record. Hospital course: 03/26/18 Admit patient to inpatient status, consult Dr. Eubanks. Lasix 40 mg IV TID for diuresis. Espino inserted for accurate I/O. KDur ordered for hypokalemia and ongoing diuresis. Creatinine 0.9 on admission. Dry weight reportedly around 136 lbs. Weight in ED was 152. Patient is a DNR. Upon discharge, will return care to Dr. Mayes. 03/27/18 Clinically improving - O2 needs resolved. Net output 270 yesterday with 1700 today so far. Weight decreased to 143.9 pounds. Continue Lasix 40mg IV q8 hours. Creatinine stable at 0.9 with BUN 10. Potassium improved to 3.6 but Mg still low at 1.3. MagOx 400mg BID initiated Change SCD to SQ Lovenox as patient having tolerability problems with SCD ( interrupting sleep). 03/29/18 -5.1 L fluid balance since admission and +0.9 L fluid balance since yesterday. BNP 3560 on admission, dropped to 519 today. Potassium elevated at 5.2. Stop oral potassium chloride supplementation. BUN increased to 36, serum creatinine 1.8. Stop oral Lasix; give 500 mL IVF. Patient evaluated by OT and PT, recommendation for discharge back to assisted living facility. Patient's blood pressure 100/54 this morning. Losartan held. Clonidine dose held for today, restart tomorrow morning. 03/30/18 -4.1 L fluid balance since admission and +1.3 L fluid balance since yesterday. BNP 3560 on admission, dropped to 519 thereafter. Potassium improved to 4.6. BUN increased to 39, serum creatinine 1.9. Continue to hold Lasix, give 500 mL IVF. Patient's blood pressure 115/65 this morning. Home medication losartan held. Clonidine dose held for today and will be restarted tomorrow morning. 03/31/18 Desaturated to 84% on room air with ambulation. Obtain overnight oximetry tonight and ambulatory oximetry in am. Start bladder retraining, dc catheter in am. Creatinine 1.4, BUN 32. Lasix 40 mg PO to be resumed in am. 04/01/18 Assessed for nocturnal and ambulatory O2, but patient did not require supplemental oxygen. Creatinine 1.3, BUN 29. Espino discontinued. Perianal rosalind rash - started Nystatin powder. Resume home medications. F/U with Dr. Mayes in 1 week. Repeat BMP in 1 week. F/ U with Dr. Eubanks - call for appt. Time spent with patient: discharge greater than 30 minutes Resuscitation Status: Do Not Resuscitate Discharge Plan - Discharge Disposition Discharge Date: 04/01/18 Disposition: 01 Discharged Home, Self-Care *Condition: Stable Reason For Visit (Visit label in EMR): Pulm edema, Hypoxia - Discharge Medications *Discharge Medications: New Nystatin Powder [Mycostatin] 1 applicatio TP BID #1 bottle Continue Loperamide HCl [Imodium A-D] 2 mg PO PRN PRN PRN Reason: Diarrhea Acetaminophen 325 - 650 mg PO TID PRN PRN Reason: Pain CloNIDine [Catapres] 0.1 mg PO BID Trazodone [Desyrel] 100 mg PO HS Mirtazapine [Remeron] 15 mg PO HS Melatonin/Pyridoxine HCl (B6) [Melatonin 1 mg Tablet] 2 mg PO HS Folic Acid [Folate] 1 mg PO DAILY Metoprolol Tartrate [Lopressor] 50 mg PO BIDWM Acetaminophen [Non-Aspirin Pain Relief] 500 mg PO BID Cholecalciferol (Vitamin D3) [Vitamin D3] 4,000 unit PO DAILY Carboxymethylcellulose O/S [Refresh Celluvisc] 1 drop OP DAILY Losartan [Cozaar] 100 mg PO DAILY Furosemide [Lasix 40 mg Tab] 40 mg PO DAILY Omeprazole 20 mg PO BID PRN PRN Reason: Heartburn Mag Carb/Aluminum Hydrox/Algin [Gaviscon Extra Strength Liquid] 15 - 30 ml PO QID PRN PRN Reason: Indigestion Cyanocobalamin (Vitamin B-12) [Vitamin B-12] 2,000 mcg PO DAILY Ondansetron HCl 2 mg PO Q4H PRN PRN Reason: Nausea Simvastatin 20 mg PO HS #0 Potassium Chloride 40 meq PO DAILY #0 Omeprazole Magnesium [Prilosec Otc] 20 mg PO BID #0 tab Mv-Min/FA/Vit K/Lycop/Lut/Zeax [Ocuvite Eye Plus Multi Tablet] 1 tab PO DAILY #0 PEG 3350 17gm PACKET [Miralax] 17 gm PO DAILY PRN PRN Reason: Constipation Sucralfate [Carafate] 1 gm PO QID - Discharge Packet/Instructions *Diet: Heart healthy *Activity: As tolerated *Pain Management/Treatment: Tylenol if needed. *Wound Care: Use Nystatin twice a day for 7-10 days for the rash in your private area. Additional Instructions: Weigh yourself daily. *Expected Signs/Symptoms: You might feel fatigued from your hospital course. *Notify Physician if: weight gain, shortness of breath or wheezing, chest pain or palpitations, feeling like you might pass out, low/high blood pressure, stroke like symptoms or any new concerns *During Business Hours Contact: Dr. Mayes or Dr. Eubanks's offices *After Business Hours Contact: The on-call provider for Dr. Mayes or Dr. Eubanks *Pending Lab/Results: No Pending Lab Outpatient Orders: BMP - Basic Metabolic - [facility] Time Frame: 1 Week, Location: None Selected - Referrals/Follow Up *Referrals/Follow Up: Geronimo Eubanks MD [Physician] - 2 Weeks Walter Mayes MD [Primary Care Provider] - 04/08/18 2:30 pm - Patient Handouts - Dismissal Complete Discharge Instructions are:: Complete Physician Narrative - Narrative Physician: Arcelia Hobson MD Attestation Narrative: Date: 04/01/18 Time: 1006 I have independently interviewed and examined patient. Patient chart reviewed. Case discussed with my [employer]OU[employer] DELIV[employer] SERVICE DRIVER. Care plan developed with my supervision, agree with above. A very pleasant 87-year-old female patient admitted to the hospital with fluid overload, pulmonary edema and respiratory distress. Patient initially placed on IV Lasix 40 mg 3 times a day. By day 3 of admission, patient had -6 L fluid balance. On day 4 of admission, serum creatinine jumped up to 1.8 when compared to 0.9 at the time of admission. IV Lasix was switched to oral Lasix on day 3 of admission and was stopped on day 4 of admission with evidence of contraction alkalosis, patient also had hypotension with blood pressure 100/54 and concern for intravascular fluid depletion. Patient received to 50 mL and later 500 mL fluid challenge on days 45 of admission. Home medication losartan and clonidine had to be held due to hypotension and renal function. Patient's BUN 32 , serum creatinine 1.4 on the day prior to discharge, restarted on Lasix 40 mg by mouth every morning on the day of discharge, patient's BUN 29 and serum creatinine 1.3. Patient to follow-up with PCP, Dr. Mayes in 1 week after discharge. Physical exam: AAO x 3, NAD PERRLA, EOMI S1 and S2 heard on auscultation, no murmurs Lungs clear to auscultation bilaterally, no wheezing, no crackles Abdomen soft, nontender, positive bowel sounds No edema bilateral lower extremities.
== END 2018-04-01 11:40 | disposition home or self-care (01) | DRG 291 ==
LOC: ED 08:20 → SUATTDRO 10:04 → EDHOLD 10:04 → MED 10:40
PROVIDERS: ADMIT Hospitalist; ATTEND Internal Medicine